=== PATIENT | female | born 1955 | race Caucasian/White ===

== ENCOUNTER 2018-11-30 14:36 | Inpatient (IN) | payer OTHER ==
[2018-11-30] MEDS ORDERED: IPRATROPIUM-ALBUTEROL 3 ML NEB INHALATION STA (15:13)
[2018-11-30] MEDS ORDERED: methylPREDNISolone SOD SUCCI 125 MG/2 ML VIAL IV STA (15:13)
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
[2018-11-30 16:01] LABS: Basophils % (A) 0 %; Eosinophils # (A) 0.1 k/uL (0-0.7); Eosinophils % (A) 1 %; HCT 40.7 % (34.0-46.0); HGB 13.5 gm/dL (11.4-16.0); Lymphocytes # (A) 0.6 k/uL (1.0-4.8); Lymphocytes % (A) 5 %; MCH 25.8 pg (25.0-35.0); MCHC 33.2 g/dL (31.0-37.0); MCV 77.5 fL (80.0-100.0); Mean Platelet Volume 6.8; Microcytosis Slight; Monocytes # (A) 0.3 k/uL (0-1.0); Monocytes % (A) 2 %; Neutrophils % (A) 92 %; Platelet Count 277 k/uL (150-450); RBC 5.25 m/uL (3.80-5.40); RDW 14.7 % (11.5-15.5); WBC 13.1 k/uL (3.8-10.6)
--- NOTE | 2018-11-30 16:13 | XR ---
EXAMINATION TYPE: XR chest 2V DATE OF EXAM: 11/30/2018 COMPARISON: NONE HISTORY: COPD with shortness of breath. TECHNIQUE: Frontal and lateral views of the chest are obtained. FINDINGS: There is no focal air space opacity, pleural effusion, or pneumothorax seen. The cardiac silhouette size is enlarged. Overlying EKG leads are seen. The osseous structures are intact. IMPRESSION: Cardiomegaly without acute pulmonary process.
[2018-11-30 16:14] LABS: ALT 74 U/L (9-52); AST 39 U/L (14-36); African American GFR (CKD) >90 (>60 ml/min/1.73 sqM); Albumin 4.3 g/dL (3.5-5.0); Alkaline Phosphatase 144 U/L (38-126); Anion Gap 13 mmol/L; Blood Urea Nitrogen 12 mg/dL (7-17); Calcium 10.3 mg/dL (8.4-10.2); Carbon Dioxide 23 mmol/L (22-30); Chloride 100 mmol/L (98-107); Glucose 241 mg/dL (74-99); Sodium 136 mmol/L (137-145); Total Bilirubin 0.7 mg/dL (0.2-1.3); Total Protein 7.4 g/dL (6.3-8.2)
[2018-11-30 16:15] LABS: D-Dimer 0.39 mg/L FEU (<0.60); INR 0.9 (<1.2); Partial Thromboplastin Time 23.1 sec (22.0-30.0); Prothrombin Time 10.2 sec (9.0-12.0)
[2018-11-30] MEDS ORDERED: IPRATROPIUM-ALBUTEROL 3 ML NEB INHALATION PRN (17:33)
[2018-11-30] MEDS: methylPREDNISolone SOD SUCCI 125 MG/2 ML VIAL IV SCH ×2 (19:04→23:22)
[2018-11-30] MEDS: NYSTATIN 100,000 UNIT/ML SUSP 500,000 UNIT/5 ML CUP PO SCH ×2 (19:06→23:21)
[2018-11-30 19:13] VITALS: BMI 46.5
[2018-11-30] MEDS: FLUTICASONE 44 MCG INHALER INHALATION SCH (19:57)
[2018-11-30] MEDS: IPRATROPIUM-ALBUTEROL 3 ML NEB INHALATION SCH (19:57)
[2018-11-30] MEDS: GABAPENTIN 300 MG CAP PO SCH (20:14)
[2018-12-01] MEDS: methylPREDNISolone SOD SUCCI 125 MG/2 ML VIAL IV SCH ×3 (05:15→23:37)
[2018-12-01] MEDS: IPRATROPIUM-ALBUTEROL 3 ML NEB INHALATION SCH ×4 (07:12→21:24)
[2018-12-01] MEDS: MONTELUKAST 10 MG TAB PO SCH (08:44)
[2018-12-01] MEDS: LORATADINE 10 MG TAB PO SCH (08:44)
[2018-12-01] MEDS: LISINOPRIL-HCTZ 10-12.5 MG 1 EACH TAB PO SCH (08:44)
[2018-12-01] MEDS: ATORVASTATIN 10 MG TAB PO SCH (08:44)
[2018-12-01] MEDS: NYSTATIN 100,000 UNIT/ML SUSP 500,000 UNIT/5 ML CUP PO SCH ×4 (08:44→22:03)
[2018-12-01] MEDS: ACETAMINOPHEN TAB 325 MG TAB PO PRN ×2 (09:25→17:05)
[2018-12-01] MEDS: FLUTICASONE 44 MCG INHALER INHALATION SCH (09:47)
[2018-12-01 11:26] LABS: Glucose,Whole Blood 296 mg/dL (75-99)
[2018-12-01] MEDS ORDERED: INSULIN ASPART (NovoLOG) 100 UNIT/ML VIAL SQ ONE (11:31)
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
[2018-12-01] MEDS: INSULIN DETEMIR (LEVEMIR) 100 UNIT/ML SYR SQ SCH (12:55)
[2018-12-01] MEDS: INSULIN ASPART (NovoLOG) 100 UNIT/ML VIAL SQ SCH ×3 (12:56→22:01)
[2018-12-01] MEDS: PREDNISOLONE ACETATE RIGHT EYE SCH ×3 (13:57→21:59)
[2018-12-01] MEDS: DICLOFENAC 0.1% RIGHT EYE SCH ×3 (13:57→22:04)
[2018-12-01 15:57] LABS: Hemoglobin A1C 7.6 % (4.0-6.0)
[2018-12-01] MEDS ORDERED: methylPREDNISolone SOD SUCCI 40 MG/ML 1 ML VIAL IV SCH (16:00)
[2018-12-01 16:50] LABS: Glucose,Whole Blood 164 mg/dL (75-99)
[2018-12-01 20:33] LABS: Glucose,Whole Blood 252 mg/dL (75-99)
[2018-12-01] MEDS: FORMOTEROL FUMARATE 20 MCG/2 ML NEBU INHALATION SCH (21:24)
[2018-12-01] MEDS: BUDESONIDE 1 MG/2 ML NEBU INHALATION SCH (21:24)
--- NOTE | 2018-12-01 21:35 | CONS ---
CONSULTATION This is a pulmonary/critical care consultation. DATE OF SERVICE: December 01, 2018 HISTORY OF PRESENT ILLNESS: This is a 63-year-old female who came into the emergency room on November 30 at 14:36 complaining of shortness of breath. The patient also had a cough. She had not been feeling well for a couple weeks. She sees Dr. Brown as her primary doctor and did see a lung doctor many years back, and was told that she had COPD. She has not seen a lung doctor recently. She apparently recently went into the [place] emergency room where she was evaluated. She apparently was given steroids and antibiotics and a rescue inhaler. Despite all that, she did not get any better. She complains of chest congestion, tightness, wheezing, cough, mostly nonproductive and profound shortness of breath. The shortness of breath got worse and worse. For that reason, she came into the ER to be evaluated. She seemed relatively comfortable at this time. She does feel better. Certainly not back to baseline. Again, she has never seen a lung doctor recently and saw somebody in the distant past and was told that she had "COPD." HOME MEDICATIONS: Includes an updraft machine with albuterol, ProAir HFA inhaler, Lipitor, QVAR, vitamin D, gabapentin, lisinopril/hydrochlorothiazide, Claritin, Singulair, and prednisone with a taper. ALLERGIES: CODEINE. MEDICAL HISTORY: COPD, hyperlipidemia, hypertension, pneumonia, recurrent episodes of acute bronchitis. SURGICAL HISTORY: Includes and eye surgery. SOCIAL HISTORY: Positive for about 20-25 years of tobacco use at 1-1/2 packs a day. She quit a number years back. She drinks occasionally. No illicit drug use. FAMILY HISTORY: Negative. She states mother and father are both alive. Both are in good health. REVIEW OF SYSTEMS: CONSTITUTIONAL: Negative. HEENT negative. CARDIOVASCULAR negative. PULMONARY: Shortness of breath, chest tightness, wheezing, cough, chest congestion, phlegm production. GI negative. negative. RHEUMATOLOGIC negative. IMMUNOLOGIC negative. ENDOCRINOLOGIC negative. DERMATOLOGIC negative. PHYSICAL EXAMINATION: VITAL SIGNS: Current vital signs are reviewed. Temperature is 98, heart rate 80. Respiratory rate 16, blood pressure 150/87, mean 108, room air saturation 95%. GENERAL: She appears in no acute distress. HEENT examination is grossly unremarkable. Mucous membranes are moist. No oral lesions. No nasal O2. NECK: Supple. Full range of motion. No adenopathy, thyromegaly or neck vein distention. CARDIOVASCULAR examination reveals regular rhythm and rate. S1, S2 normal. No S3, S4, or murmur. Heart rate 80. LUNGS: Reveal inspiratory and expiratory wheezes and rhonchi. There is prolongation on forced maneuver. Adventitious lung sounds are more prominent on forced maneuver. ABDOMEN: Obese. Bowel sounds are heard. EXTREMITIES are intact. No cyanosis, clubbing, or edema. SKIN: Without rash. NEUROLOGIC: Examination is nonfocal. LABS: Reviewed. White count 13.1, hemoglobin 13.5, hematocrit 40.7, platelet count 277,000. PT/INR, PTT all normal. D-dimer normal. Sodium 136, potassium 4, chloride 100, CO2 is 23, anion gap is 13. BUN and creatinine were 12 and 0.63. AST 39, ALT 74, alkaline phosphatase 144. N-terminal proBNP is normal. CHEST X-RAY: Shows nothing acute. Medications are reviewed. We will make sure she is on appropriate medications including short-acting beta agonist, short-acting muscarinic antagonist, long-acting beta agonist, inhaled corticosteroids, and systemic corticosteroids and oral antibiotics. ASSESSMENT: 1. Chronic obstructive pulmonary disease exacerbation. 2. Previous history of tobacco use. 3. No evidence of pneumonia. 4. History of cardiomegaly. 5. Hypertension. 6. Hyperlipidemia. 7. Prior episode of pneumonia. 8. Recurrent episodes of acute bronchitis. PLAN: I told the patient that we would make sure that she is on appropriate medications. In addition, most importantly, she needs to see us in the office after discharge for pulmonary function testing so that we can actually quantitate her disease and actually determine what disease she actually has. Additional recommendations and suggestions are forthcoming. Prognosis is guarded. We will continue to follow. MMODL / IJN: [id number] /
[2018-12-01] MEDS: DOXYCYCLINE 100 MG CAP PO SCH (22:00)
[2018-12-01] MEDS: GABAPENTIN 300 MG CAP PO SCH (22:00)
[2018-12-01] MEDS: BRIMONIDINE TARTRATE RIGHT EYE SCH (22:09)
[2018-12-01] MEDS: TIMOLOL RIGHT EYE SCH (22:09)
[2018-12-02] MEDS: methylPREDNISolone SOD SUCCI 125 MG/2 ML VIAL IV SCH ×4 (06:13→23:48)
[2018-12-02 07:07] LABS: Glucose,Whole Blood 252 mg/dL (75-99)
[2018-12-02] MEDS: IPRATROPIUM-ALBUTEROL 3 ML NEB INHALATION SCH ×4 (07:23→21:58)
[2018-12-02] MEDS: BUDESONIDE 1 MG/2 ML NEBU INHALATION SCH ×2 (07:23→21:57)
[2018-12-02] MEDS: FORMOTEROL FUMARATE 20 MCG/2 ML NEBU INHALATION SCH ×2 (07:23→21:57)
[2018-12-02] MEDS: PANTOPRAZOLE 40 MG TABLET PO SCH (07:41)
[2018-12-02] MEDS: NYSTATIN 100,000 UNIT/ML SUSP 500,000 UNIT/5 ML CUP PO SCH ×4 (07:41→22:29)
[2018-12-02] MEDS: LISINOPRIL-HCTZ 10-12.5 MG 1 EACH TAB PO SCH (07:41)
[2018-12-02] MEDS: LORATADINE 10 MG TAB PO SCH (07:42)
[2018-12-02] MEDS: DICLOFENAC 0.1% RIGHT EYE SCH ×4 (07:42→22:29)
[2018-12-02] MEDS: ENOXAPARIN 40 MG/0.4 ML SYRINGE SQ SCH (07:42)
[2018-12-02] MEDS: BRIMONIDINE TARTRATE RIGHT EYE SCH ×2 (07:42→22:29)
[2018-12-02] MEDS: INSULIN DETEMIR (LEVEMIR) 100 UNIT/ML SYR SQ SCH (07:42)
[2018-12-02] MEDS: TIMOLOL RIGHT EYE SCH ×2 (07:42→22:29)
[2018-12-02] MEDS: ATORVASTATIN 10 MG TAB PO SCH (07:42)
[2018-12-02] MEDS: MONTELUKAST 10 MG TAB PO SCH (07:42)
[2018-12-02] MEDS: PREDNISOLONE ACETATE RIGHT EYE SCH ×4 (07:42→22:29)
[2018-12-02] MEDS: INSULIN ASPART (NovoLOG) 100 UNIT/ML VIAL SQ SCH ×4 (07:42→22:30)
[2018-12-02] MEDS: DOXYCYCLINE 100 MG CAP PO SCH ×2 (07:42→22:29)
[2018-12-02 08:26] LABS: ALT 65 U/L (9-52); AST 33 U/L (14-36); African American GFR (CKD) >90 (>60 ml/min/1.73 sqM); Albumin 4.2 g/dL (3.5-5.0); Alkaline Phosphatase 116 U/L (38-126); Anion Gap 13 mmol/L; Blood Urea Nitrogen 20 mg/dL (7-17); Calcium 10.6 mg/dL (8.4-10.2); Carbon Dioxide 23 mmol/L (22-30); Chloride 99 mmol/L (98-107); Glucose 231 mg/dL (74-99); Potassium 4.3 mmol/L (3.5-5.1); Sodium 135 mmol/L (137-145); Total Bilirubin 0.7 mg/dL (0.2-1.3); Total Protein 7.1 g/dL (6.3-8.2)
[2018-12-02 08:46] LABS: HCT 40.8 % (34.0-46.0); HGB 13.8 gm/dL (11.4-16.0); MCH 26.7 pg (25.0-35.0); MCHC 33.9 g/dL (31.0-37.0); Platelet Count 291 k/uL (150-450); RBC 5.17 m/uL (3.80-5.40); RDW 14.8 % (11.5-15.5); WBC 15.4 k/uL (3.8-10.6)
[2018-12-02 11:54] LABS: Glucose,Whole Blood 220 mg/dL (75-99)
[2018-12-02] MEDS: SENNOSIDES-DOCUSATE SODIUM 1 EACH TAB PO SCH (12:28)
--- NOTE | 2018-12-02 14:08 | P.PN ---
Subjective Progress Note Date: 12/02/18 This is a 63-year-old female patient of Dr. Brown with past medical history of COPD, fibromyalgia under the care of Dr. Morgan, hyperlipidemia, hypertension, glaucoma and recent cataract surgery. 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 She does not currently have a pulmonary doctor. Patient has had increasing cough and shortness of breath for the last couple of weeks. She has been seen by her primary care doctor and emergency center at [facility]. She was started on DuoNeb treatments. She has completed a course of doxycycline. She is currently on prednisone as well. She complains of difficulty breathing out, dry cough. No fever or chills. She has been using her nebulizer 4 times daily without improvement. She denies history of obstructive sleep apnea but her reports that she snores, she has not had a sleep study done in the past. She is complaining of abdominal bloating since she started prednisone. Patient came into [facility] emergency center for evaluation. She was afebrile, heart rate 86, pulse ox 96% on room air, blood pressure 152/88. EKG was a sinus rhythm with no acute ST changes. White count 13.1, hemoglobin 13.5, platelet count 277. Blood sugar 241 without history of diabetes. BUN 12 and creatinine 0.63. D-dimer 0.39. Alkaline phosphatase 144, ALT 74, AST 39. ProBNP 39. Chest x-ray reveals no acute cardiopulmonary process. Patient was started on IV Solu-Medrol and DuoNeb treatments and admitted to the [facility] floor. Consult with Dr. Berger in place. At the time of this evaluation, patient has had improvement of her respiratory function, she continues to have cough. 12/02: Patient has been seen by Dr. Bryant with plan for follow-up in the office. He has increased her Solu-Medrol back to 60 every 6 hours and added in doxycycline. She has been afebrile. Blood pressure 113/74, pulse ox 97% on room air, heart rate in the 60s. Blood sugars have been running in the low 200s. Repeat lab work this morning reveals sodium of 135, AST 33, ALT 65, alkaline phosphatase 116. Blood culture no growth after 24 hours. Patient states that she is very emotional this morning. states there have been some issues going on and this may be impacted also by the Solu-Medrol. Patient states this morning she was feeling tight and still wheezing. No changes will be made to her medications She is complaining of constipation as her last bowel movement was on Saturday and Senokot added. Objective - Vital Signs Vital signs: Vital Signs Temp 97.9 F 12/02/18 05:00 Pulse 74 12/02/18 07:47 Resp 18 12/02/18 07:36 BP 113/74 12/02/18 05:00 Pulse Ox 98 12/02/18 07:23 Intake & Output 12/01/18 12/02/18 12/02/18 18:59 06:59 18:59 Intake Total 840 Balance 840 Intake: Oral 840 Other: Voiding Method Toilet Toilet # Voids 2 - Exam Review of Systems Constitutional: Reports fatigue, Reports malaise, Reports poor appetite, Reports weakness, Denies anorexia, Denies chills, Denies fever, Denies lethargy Eyes: denies blurred vision, denies pain Ears, nose, mouth and throat: Denies dysphagia, Denies headache, Denies mouth pain, Denies nasal congestion, Denies nasal discharge, Denies sore throat, Denies vertigo Cardiovascular: Reports dyspnea on exertion, Reports shortness of breath, Denies chest pain, Denies edema, Denies leg edema, Denies lightheadedness, Denies orthopnea, Denies palpitations, Denies syncope Respiratory: Reports congestion, Reports cough, Reports dyspnea, Reports wheezing, Denies cough with sputum, Denies excessive sputum, Denies hemoptysis, Denies home oxygen, Denies sleep apnea Gastrointestinal: Denies abdominal pain, Denies loss of appetite, Denies nausea, Denies vomiting Genitourinary: Denies dysuria, Denies hematuria, Denies urgency, Denies urinary frequency Musculoskeletal: Denies frequent falls, Denies gait dysfunction, Denies muscle weakness, Denies myalgias Integumentary: Denies pruritus, Denies rash, Denies wounds Neurological: Denies change in mentation, Denies change in speech, Denies confusion, Denies head injury, Denies numbness, Denies seizures, Denies weakness Psychiatric: Reports anxiety, Denies depression Endocrine: Reports fatigue, Reports high blood sugars, Denies weight change Gen: This is a 63-year-old female. Patient is sitting up in bed and noted to be tearful. is at bedside.. HEENT: Head is atraumatic, normocephalic. Pupils equal, round. Sclerae is anicteric. NECK: Supple. No JVD. No lymphadenopathy. No thyromegaly. LUNGS: Expiratory wheeze. No accessory muscle usage. No intercostal retractions. HEART: Regular rate and rhythm. No murmur. ABDOMEN: Soft. Bowel sounds are present. No masses. No tenderness. EXTREMITIES: No pedal edema. No calf tenderness. Dorsalis pedis +2 bilaterally. NEUROLOGICAL: Patient is awake, alert and oriented x3. Cranial nerves 2 through 12 are grossly intact. - Labs CBC & Chem 7: 12/02/18 07:34 12/02/18 07:34 Labs: Abnormal Lab Results - Last 24 Hours (Table) 11/30/18 12/01/18 12/01/18 Range/Units 15:44 11:25 16:47 Sodium (137-145) mmol/L BUN (7-17) mg/dL Glucose (74-99) mg/dL POC Glucose (mg/dL) 296 H 164 H (75-99) mg/dL Hemoglobin A1c 7.6 H (4.0-6.0) % Calcium (8.4-10.2) mg/dL ALT (9-52) U/L 12/01/18 12/02/18 12/02/18 Range/Units 20:32 07:06 07:34 Sodium 135 L (137-145) mmol/L BUN 20 H (7-17) mg/dL Glucose 231 H (74-99) mg/dL POC Glucose (mg/dL) 252 H 252 H (75-99) mg/dL Hemoglobin A1c (4.0-6.0) % Calcium 10.6 H (8.4-10.2) mg/dL ALT 65 H (9-52) U/L Microbiology - Last 24 Hours (Table) 11/30/18 15:44 Blood Culture - Preliminary Blood No Growth after 24 hours Assessment and Plan Plan: 1. Acute exacerbation of COPD, failed outpatient treatment. Pulmonary consult appreciated. DuoNeb treatments 4 times daily and every 4 hours as needed, Pulmicort 1 mg per nebulizer twice daily, Solu-Medrol was increased to 60 mg every 6 hours, doxycycline added by pulmonary medicine, continue Singulair and Claritin. 2. Hyperglycemia most likely secondary to steroids with no previous history of diabetes. Hemoglobin A1c ordered. Levemir 10 units daily and NovoLog scale before meals and at bedtime. 3. Remote history of tobacco use and dependence. 4. Elevated liver function tests, recheck CMP tomorrow. 5. Fibromyalgia under the care of Dr. Morgan. Continue gabapentin 300 mg at bedtime 6. Hypertension. Continue lisinopril/hydrochlorothiazide 10/12.5 mg daily. 7. Hyperlipidemia. Continue atorvastatin 10 mg daily. 8. Glaucoma and recent right cataract surgery. will bring eyedrops from home. 9. Possible obstructive sleep apnea, patient would benefit from outpatient testing. 10. DVT prophylaxis. Lovenox. 11. GI prophylaxis. Protonix. 12. Oral thrush. Nystatin. Patient will be admitted to the hospital for a minimum of 2 night stay. Discharge plan: Return home Impression and plan of care have been directed as dictated by the signing physician. Gwendolyn Hernandez nurse practitioner acting as scribe for signing physi sharri.
--- NOTE | 2018-12-02 14:15 | P.PN ---
Subjective Progress Note Date: 12/02/18 Principal diagnosis: Acute exacerbation of chronic obstructive pulmonary disease On 12/02/2018 patient seen in follow-up on medical surgical floor. She still tight and wheezy, although slightly improved today. She is a combination of empiric antibiotics, IV steroids, and nebulized bronchodilators. Occasional nonproductive cough, today she is just feeling "washed out", but no acute distress. Objective - Vital Signs Vital signs: Vital Signs Temp 97.6 F 12/02/18 11:42 Pulse 70 12/02/18 13:33 Resp 16 12/02/18 11:42 BP 156/77 12/02/18 11:42 Pulse Ox 93 L 12/02/18 11:42 Intake & Output 12/01/18 12/02/18 12/02/18 18:59 06:59 18:59 Intake Total 840 20 Balance 840 20 Intake: IV 20 0.9 flush 20 Oral 840 Other: Voiding Method Toilet Toilet # Voids 2 - Exam GENERAL EXAM: Alert, pleasant, 63-year-old white female with room air pulse ox of 93% comfortable in no apparent distress. HEAD: Normocephalic/atraumatic. EYES: Normal reaction of pupils, equal size. Conjunctiva pink, sclera white. NOSE: Clear with pink turbinates. THROAT: No erythema or exudates. NECK: No masses, no JVD, no thyroid enlargement, no adenopathy. CHEST: No chest wall deformity. Symmetrical expansion. LUNGS: Equal air entry with diminished air entry, and end expiratory wheezes, prolongation of expiratory phase of breathing CVS: Regular rate and rhythm, normal S1 and S2, no gallops, no murmurs, no rubs ABDOMEN: Soft, nontender. No hepatosplenomegaly, normal bowel sounds, no guarding or rigidity. EXTREMITIES: No clubbing, no edema, no cyanosis, 2+ pulses and upper and lower extremities. MUSCULOSKELETAL: Muscle strength and tone normal. SPINE: No scoliosis or deformity SKIN: No rashes CENTRAL NERVOUS SYSTEM: Alert and oriented -3. No focal deficits, tone is normal in all 4 extremities. PSYCHIATRIC: Alert and oriented -3. Appropriate affect. Intact judgment and insight. - Labs CBC & Chem 7: 12/02/18 07:34 12/02/18 07:34 Labs: Abnormal Lab Results - Last 24 Hours (Table) 11/30/18 12/01/18 12/01/18 Range/Units 15:44 16:47 20:32 WBC (3.8-10.6) k/uL MCV (80.0-100.0) fL Sodium (137-145) mmol/L BUN (7-17) mg/dL Glucose (74-99) mg/dL POC Glucose (mg/dL) 164 H 252 H (75-99) mg/dL Hemoglobin A1c 7.6 H (4.0-6.0) % Calcium (8.4-10.2) mg/dL ALT (9-52) U/L 12/02/18 12/02/18 12/02/18 Range/Units 07:06 07:34 07:34 WBC 15.4 H (3.8-10.6) k/uL MCV 79.0 L (80.0-100.0) fL Sodium 135 L (137-145) mmol/L BUN 20 H (7-17) mg/dL Glucose 231 H (74-99) mg/dL POC Glucose (mg/dL) 252 H (75-99) mg/dL Hemoglobin A1c (4.0-6.0) % Calcium 10.6 H (8.4-10.2) mg/dL ALT 65 H (9-52) U/L 12/02/18 Range/Units 11:51 WBC (3.8-10.6) k/uL MCV (80.0-100.0) fL Sodium (137-145) mmol/L BUN (7-17) mg/dL Glucose (74-99) mg/dL POC Glucose (mg/dL) 220 H (75-99) mg/dL Hemoglobin A1c (4.0-6.0) % Calcium (8.4-10.2) mg/dL ALT (9-52) U/L Microbiology - Last 24 Hours (Table) 11/30/18 15:44 Blood Culture - Preliminary Blood No Growth after 24 hours Assessment and Plan Plan: Assessment: #1. Acute exacerbation of chronic obstructive pulmonary disease, no evidence of pneumonia #2. 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 History of cardiomegaly #4. Hypertension #5. Hyperlipidemia #6. Prior episodes of pneumonia #7. Recurrent episodes of acute bronchitis Plan: Continue current medical treatment, current dose IV steroids and antibiotics and nebulized bronchodilators. Slowly improving, not quite back to baseline, continue with current medical treatment, will follow I performed a history & physical examination of the patient and discussed their management with my nurse practitioner, Bekah Orta. I reviewed the nurse practitioner's note and agree with the documented findings and plan of care. Lung sounds are positive for scattered wheezes. The findings and the impression was discussed with the patient. I attest to the documentation by the nurse practitioner. Time with Patient: Less than 30
[2018-12-02] MEDS: ACETAMINOPHEN TAB 325 MG TAB PO PRN (17:02)
[2018-12-02 17:13] LABS: Glucose,Whole Blood 263 mg/dL (75-99)
--- NOTE | 2018-12-02 17:23 | ECHOF ---
Referral Reason:LVF MEASUREMENTS -------- HEIGHT: 157.5 cm WEIGHT: 113.4 kg BP: RVIDd: 2.7 cm (< 3.3) IVSd: 1.1 cm (0.6 - 1.1) LVIDd: 4.0 cm (3.9 - 5.3) LVPWd: 1.2 cm (0.6 - 1.1) IVSs: 1.6 cm LVIDs: 2.8 cm LVPWs: 1.5 cm Ao Diam: 2.4 cm (2.0 - 3.7) AV Cusp: 1.8 cm (1.5 - 2.6) LA Diam: 3.3 cm (2.7 - 3.8) EPSS: 0.4 cm MV E Mark: 0.78 m/s MV DecT: 201 ms MV A Mark: 0.88 m/s MV E/A Ratio: 0.89 RAP: 5.00 mmHg RVSP: 13.56 mmHg MV EF SLOPE: 67.69 mm/s (70 - 150) MV EXCURSION: 1.30 cm (> 18.000) FINDINGS -------- Sinus rhythm. This was a technically difficult study with suboptimal views. The left ventricular size is normal. There is mild concentric left ventricular hypertrophy. Overa ll left ventricular systolic function is normal with, an EF between 55 - 60 %. The diastolic fillin g pattern is normal for the age of the patient. The right ventricle is normal in size. The left atrial size is normal. The right atrial size is normal. Lumason used 1.5mg of Definity was utilized for enhancement of images The aortic valve is trileaflet, and appears structurally normal. No aortic stenosis or regurgitation. The mitral valve is normal. Mild mitral regurgitation is present. The tricuspid valve appears structurally normal. Mild tricuspid regurgitation present. Right vent ricular systolic pressure is normal at < 35 mmHg. Trace/mild (physiologic) pulmonic regurgitation. The aortic root size is normal. The inferior vena cava was not well visualized. The pulmonary veins were not recorded. Echo free space may represent effusion or a pericardial fat pad. CONCLUSIONS -------- 1. Sinus rhythm. 2. This was a technically difficult study with suboptimal views. 3. The left ventricular size is normal. 4. There is mild concentric left ventricular hypertrophy. 5. Overall left ventricular systolic function is normal with, an EF between 55 - 60 %. 6. The diastolic filling pattern is normal for the age of the patient. 7. The left atrial size is normal. 8. Lumason used 9. 1.5mg of Definity was utilized for enhancement of images 10. The aortic valve is trileaflet, and appears structurally normal. No aortic stenosis or regurgitat ion. 11. The mitral valve is normal. 12. Mild mitral regurgitation is present. 13. The tricuspid valve appears structurally normal. 14. Mild tricuspid regurgitation present. 15. Right ventricular systolic pressure is normal at < 35 mmHg. 16. Trace/mild (physiologic) pulmonic regurgitation. 17. The aortic root size is normal. 18. The inferior vena cava was not well visualized. 19. The pulmonary veins were not recorded. 20. Echo free space may represent effusion or a pericardial fat pad. SCHOOL LEADER: Shy Waller RDCS
[2018-12-02 20:08] LABS: Glucose,Whole Blood 257 mg/dL (75-99)
[2018-12-02] MEDS: GABAPENTIN 300 MG CAP PO SCH (22:36)
[2018-12-03] MEDS: ACETAMINOPHEN TAB 325 MG TAB PO PRN (04:26)
[2018-12-03] MEDS: methylPREDNISolone SOD SUCCI 125 MG/2 ML VIAL IV SCH ×2 (05:36→12:50)
[2018-12-03] MEDS: IPRATROPIUM-ALBUTEROL 3 ML NEB INHALATION SCH ×4 (07:02→19:08)
[2018-12-03] MEDS: FORMOTEROL FUMARATE 20 MCG/2 ML NEBU INHALATION SCH ×2 (07:02→19:08)
[2018-12-03] MEDS: BUDESONIDE 1 MG/2 ML NEBU INHALATION SCH ×2 (07:03→19:08)
[2018-12-03 07:04] LABS: Glucose,Whole Blood 238 mg/dL (75-99)
[2018-12-03] MEDS: INSULIN ASPART (NovoLOG) 100 UNIT/ML VIAL SQ SCH ×4 (08:09→21:31)
[2018-12-03] MEDS: ENOXAPARIN 40 MG/0.4 ML SYRINGE SQ SCH (08:09)
[2018-12-03] MEDS: ATORVASTATIN 10 MG TAB PO SCH (08:10)
[2018-12-03] MEDS: SENNOSIDES-DOCUSATE SODIUM 1 EACH TAB PO SCH (08:10)
[2018-12-03] MEDS: PREDNISOLONE ACETATE RIGHT EYE SCH ×4 (08:11→21:30)
[2018-12-03] MEDS: NYSTATIN 100,000 UNIT/ML SUSP 500,000 UNIT/5 ML CUP PO SCH ×4 (08:11→21:32)
[2018-12-03] MEDS: DICLOFENAC 0.1% RIGHT EYE SCH ×4 (08:11→21:33)
[2018-12-03] MEDS: TIMOLOL RIGHT EYE SCH ×2 (08:11→21:35)
[2018-12-03] MEDS: BRIMONIDINE TARTRATE RIGHT EYE SCH ×2 (08:11→21:35)
[2018-12-03] MEDS: LORATADINE 10 MG TAB PO SCH (08:12)
[2018-12-03] MEDS: LISINOPRIL-HCTZ 10-12.5 MG 1 EACH TAB PO SCH (08:12)
[2018-12-03] MEDS: MONTELUKAST 10 MG TAB PO SCH (08:12)
[2018-12-03] MEDS: DOXYCYCLINE 100 MG CAP PO SCH ×2 (08:12→21:31)
[2018-12-03] MEDS: PANTOPRAZOLE 40 MG TABLET PO SCH (08:12)
[2018-12-03] MEDS: INSULIN DETEMIR (LEVEMIR) 100 UNIT/ML SYR SQ SCH (08:21)
[2018-12-03] MEDS ORDERED: ERGOCALCIFEROL 50,000 UNIT CAP PO SCH (09:00)
[2018-12-03 11:37] LABS: Glucose,Whole Blood 260 mg/dL (75-99)
[2018-12-03] MEDS: metFORMIN 500 MG TAB PO SCH ×2 (12:43→17:31)
--- NOTE | 2018-12-03 13:25 | P.PN ---
Subjective Progress Note Date: 12/03/18 Principal diagnosis: Acute exacerbation of chronic obstructive pulmonary disease. The patient is seen today 12/03/2018 in follow-up on the regular medical floor. She is currently resting comfortably in bed. Awake and alert in no acute distress. She is improved today as compared to yesterday but still not quite back to her baseline. Still dyspneic on minimal exertion. Still some expiratory wheezing. Blood culture reveals no growth. She remains on empiric antibiotics in the form of Vibramycin, DuoNeb inhalations, Pulmicort and Perforomist inhalations, IV Solu-Medrol. Objective - Vital Signs Vital signs: Vital Signs Temp 97.8 F 12/03/18 12:21 Pulse 75 12/03/18 12:21 Resp 16 12/03/18 12:21 BP 170/80 12/03/18 12:21 Pulse Ox 96 12/03/18 12:21 Intake & Output 12/02/18 12/03/18 12/03/18 18:59 06:59 18:59 Intake Total 20 1200 Balance 20 1200 Intake: IV 20 0.9 flush 20 Oral 1200 Other: Voiding Method Toilet Toilet # Voids 1 - Exam GENERAL EXAM: Alert, pleasant, 63-year-old female patient with room air pulse ox of 96% comfortable in no apparent distress. HEAD: Normocephalic/atraumatic. EYES: Normal reaction of pupils, equal size. Conjunctiva pink, sclera white. NOSE: Clear with pink turbinates. THROAT: No erythema or exudates. NECK: No masses, no JVD, no thyroid enlargement, no adenopathy. CHEST: No chest wall deformity. Symmetrical expansion. LUNGS: Equal air entry with diminished air entry, and end expiratory wheezes, prolongation of expiratory phase of breathing CVS: Regular rate and rhythm, normal S1 and S2, no gallops, no murmurs, no rubs ABDOMEN: Soft, nontender. No hepatosplenomegaly, normal bowel sounds, no guarding or rigidity. EXTREMITIES: No clubbing, no edema, no cyanosis, 2+ pulses and upper and lower extremities. MUSCULOSKELETAL: Muscle strength and tone normal. SPINE: No scoliosis or deformity SKIN: No rashes CENTRAL NERVOUS SYSTEM: No focal deficits, tone is normal in all 4 extremities. PSYCHIATRIC: Alert and oriented -3. Appropriate affect. Intact judgment and insight. - Labs CBC & Chem 7: 12/02/18 07:34 12/02/18 07:34 Labs: Abnormal Lab Results - Last 24 Hours (Table) 12/02/18 12/02/18 12/03/18 Range/Units 17:11 20:06 07:03 POC Glucose (mg/dL) 263 H 257 H 238 H (75-99) mg/dL 12/03/18 Range/Units 11:36 POC Glucose (mg/dL) 260 H (75-99) mg/dL Microbiology - Last 24 Hours (Table) 11/30/18 15:44 Blood Culture - Preliminary Blood No Growth after 48 hours Assessment and Plan Assessment: Assessment: #1. Acute exacerbation of chronic obstructive pulmonary disease, no evidence of pneumonia #2. 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 History of cardiomegaly #4. Hypertension #5. Hyperlipidemia #6. Prior episodes of pneumonia #7. Recurrent episodes of acute bronchitis Plan: The patient was seen and evaluated by Dr. Bryant. She is improved today compared to yesterday. Not quite back to her baseline. We'll continue with the current treatment plan. Plan for probable discharge in the a.m. I, the cosigning physician, performed a history & physical examination of the patient. Lungs sounds with bilateral end expiratory wheeze. Maintaining good O2 saturations in the 90s on room air. I discussed the assessment and plan of care with my nurse practitioner, Edna Spears. I attest to the above note as dictated by her.
--- NOTE | 2018-12-03 14:23 | P.PN ---
Subjective Progress Note Date: 12/03/18 This is a 63-year-old female patient of Dr. Brown with past medical history of COPD, fibromyalgia under the care of Dr. Morgan, hyperlipidemia, hypertension, glaucoma and recent cataract surgery. 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 She does not currently have a pulmonary doctor. Patient has had increasing cough and shortness of breath for the last couple of weeks. She has been seen by her primary care doctor and emergency center at [facility]. She was started on DuoNeb treatments. She has completed a course of doxycycline. She is currently on prednisone as well. She complains of difficulty breathing out, dry cough. No fever or chills. She has been using her nebulizer 4 times daily without improvement. She denies history of obstructive sleep apnea but her reports that she snores, she has not had a sleep study done in the past. She is complaining of abdominal bloating since she started prednisone. Patient came into [facility] emergency center for evaluation. She was afebrile, heart rate 86, pulse ox 96% on room air, blood pressure 152/88. EKG was a sinus rhythm with no acute ST changes. White count 13.1, hemoglobin 13.5, platelet count 277. Blood sugar 241 without history of diabetes. BUN 12 and creatinine 0.63. D-dimer 0.39. Alkaline phosphatase 144, ALT 74, AST 39. ProBNP 39. Chest x-ray reveals no acute cardiopulmonary process. Patient was started on IV Solu-Medrol and DuoNeb treatments and admitted to the [facility] floor. Consult with Dr. Berger in place. At the time of this evaluation, patient has had improvement of her respiratory function, she continues to have cough. 12/02: Patient has been seen by Dr. Bryant with plan for follow-up in the office. He has increased her Solu-Medrol back to 60 every 6 hours and added in doxycycline. She has been afebrile. Blood pressure 113/74, pulse ox 97% on room air, heart rate in the 60s. Blood sugars have been running in the low 200s. Repeat lab work this morning reveals sodium of 135, AST 33, ALT 65, alkaline phosphatase 116. Blood culture no growth after 24 hours. Patient states that she is very emotional this morning. states there have been some issues going on and this may be impacted also by the Solu-Medrol. Patient states this morning she was feeling tight and still wheezing. No changes will be made to her medications She is complaining of constipation as her last bowel movement was on Saturday and Senokot added. 12/03: Patient states that today is her best day so far. She continues to cough with sputum production. Her breathing is improved from yesterday. Ech ocardiogram reveals EF of 55-60%, mild concentric left ventricular hypertrophy, mild mitral regurgitation, mild tricuspid regurgitation. Hemoglobin A1c is 7.6 and patient will be started on metformin which will be continued per home. She has met with the nutrition educator. Patient states that she has a glucometer that was her father's which she will use to check her blood sugars at home. Solu-Medrol will be decreased to 40 mg every 8 hours. Anticipate discharge home in next 48 hours. Objective - Vital Signs Vital signs: Vital Signs Temp 96.9 F L 12/03/18 04:53 Pulse 84 12/03/18 11:36 Resp 18 12/03/18 04:53 BP 147/75 12/03/18 04:53 Pulse Ox 95 12/03/18 04:53 Intake & Output 12/02/18 12/03/18 12/03/18 18:59 06:59 18:59 Intake Total 20 1200 Balance 20 1200 Intake: IV 20 0.9 flush 20 Oral 1200 Other: Voiding Method Toilet Toilet # Voids 1 - Exam Review of Systems Constitutional: Reports fatigue, Reports malaise, Reports poor appetite, Reports weakness, Denies anorexia, Denies chills, Denies fever, Denies lethargy Eyes: denies blurred vision, denies pain Ears, nose, mouth and throat: Denies dysphagia, Denies headache, Denies mouth pain, Denies nasal congestion, Denies nasal discharge, Denies sore throat, Denies vertigo Cardiovascular: Reports dyspnea on exertion, Reports shortness of breath- improving, Denies chest pain, Denies edema, Denies leg edema, Denies lightheadedness, Denies orthopnea, Denies palpitations, Denies syncope Respiratory: Reports congestion, Reports cough, Reports dyspnea, Reports wheezing, Denies cough with sputum, Denies excessive sputum, Denies hemoptysis, Denies home oxygen, Denies sleep apnea Gastrointestinal: Denies abdominal pain, Denies loss of appetite, Denies nausea, Denies vomiting Genitourinary: Denies dysuria, Denies hematuria, Denies urgency, Denies urinary frequency Musculoskeletal: Denies frequent falls, Denies gait dysfunction, Denies muscle weakness, Denies myalgias Integumentary: Denies pruritus, Denies rash, Denies wounds Neurological: Denies change in mentation, Denies change in speech, Denies confusion, Denies head injury, Denies numbness, Denies seizures, Denies weakness Psychiatric: Reports anxiety, Denies depression Endocrine: Reports fatigue, Reports high blood sugars, Denies weight change Gen: This is a 63-year-old female. Patient is sitting up in bed and appears to be comfortable. is at bedside. HEENT: Head is atraumatic, normocephalic. Pupils equal, round. Sclerae is anicteric. NECK: Supple. No JVD. No lymphadenopathy. No thyromegaly. LUNGS: Expiratory wheeze. No accessory muscle usage. No intercostal retractions. HEART: Regular rate and rhythm. No murmur. ABDOMEN: Soft. Bowel sounds are present. No masses. No tenderness. EXTREMITIES: No pedal edema. No calf tenderness. Dorsalis pedis +2 bilaterally. NEUROLOGICAL: Patient is awake, alert and oriented x3. Cranial nerves 2 through 12 are grossly intact. - Labs CBC & Chem 7: 12/02/18 07:34 12/02/18 07:34 Labs: Abnormal Lab Results - Last 24 Hours (Table) 12/02/18 12/02/18 12/03/18 Range/Units 17:11 20:06 07:03 POC Glucose (mg/dL) 263 H 257 H 238 H (75-99) mg/dL 12/03/18 Range/Units 11:36 POC Glucose (mg/dL) 260 H (75-99) mg/dL Microbiology - Last 24 Hours (Table) 11/30/18 15:44 Blood Culture - Preliminary Blood No Growth after 48 hours Assessment and Plan Plan: 1. Acute exacerbation of COPD, failed outpatient treatment. Pulmonary consult appreciated. DuoNeb treatments 4 times daily and every 4 hours as needed, Pulmicort 1 mg per nebulizer twice daily, Solu-Medrol will be decreased to 40 mg every 8 hours, doxycycline added by pulmonary medicine, continue Singulair and Claritin. 2. Diabetes mellitus type 2, new diagnosis, uncontrolled with hyperglycemia secondary to steroids. Levemir 10 units daily and NovoLog scale before meals and at bedtime. Start metformin 500mg twice daily 3. Remote history of tobacco use and dependence. 4. Elevated liver function tests, recheck CMP tomorrow. 5. Fibromyalgia under the care of Dr. Morgan. Continue gabapentin 300 mg at bedtime 6. Hypertension. Continue lisinopril/hydrochlorothiazide 10/12.5 mg daily. 7. Hyperlipidemia. Continue atorvastatin 10 mg daily. 8. Glaucoma and recent right cataract surgery. will bring eyedrops from home. 9. Possible obstructive sleep apnea, patient would benefit from outpatient testing. 10. DVT prophylaxis. Lovenox. 11. GI prophylaxis. Protonix. 12. Oral thrush. Nystatin. Discharge plan: Return home Impression and plan of care have been directed as dictated by the signing physician. Gwendolyn Hernandez nurse practitioner acting as scribe for signing physician.
[2018-12-03 17:10] LABS: Glucose,Whole Blood 136 mg/dL (75-99)
[2018-12-03] MEDS: methylPREDNISolone SOD SUCCI 40 MG/ML 1 ML VIAL IV SCH ×2 (17:32→23:46)
[2018-12-03 20:14] LABS: Glucose,Whole Blood 193 mg/dL (75-99)
[2018-12-03] MEDS: GABAPENTIN 300 MG CAP PO SCH (21:31)
[2018-12-03 23:04] VITALS: RESP 18
[2018-12-04 06:54] LABS: Glucose,Whole Blood 190 mg/dL (75-99)
[2018-12-04] MEDS: IPRATROPIUM-ALBUTEROL 3 ML NEB INHALATION SCH ×4 (06:55→19:01)
[2018-12-04] MEDS: FORMOTEROL FUMARATE 20 MCG/2 ML NEBU INHALATION SCH ×2 (07:01→19:01)
[2018-12-04] MEDS: BUDESONIDE 1 MG/2 ML NEBU INHALATION SCH ×2 (07:02→19:01)
[2018-12-04] MEDS: ENOXAPARIN 40 MG/0.4 ML SYRINGE SQ SCH (08:19)
[2018-12-04] MEDS: INSULIN ASPART (NovoLOG) 100 UNIT/ML VIAL SQ SCH ×4 (08:19→21:41)
[2018-12-04] MEDS: DOXYCYCLINE 100 MG CAP PO SCH ×2 (08:20→21:46)
[2018-12-04] MEDS: PREDNISOLONE ACETATE RIGHT EYE SCH ×4 (08:20→21:48)
[2018-12-04] MEDS: INSULIN DETEMIR (LEVEMIR) 100 UNIT/ML SYR SQ SCH (08:20)
[2018-12-04] MEDS: DICLOFENAC 0.1% RIGHT EYE SCH ×4 (08:20→21:48)
[2018-12-04] MEDS: NYSTATIN 100,000 UNIT/ML SUSP 500,000 UNIT/5 ML CUP PO SCH ×4 (08:21→21:48)
[2018-12-04] MEDS: TIMOLOL RIGHT EYE SCH ×2 (08:21→21:47)
[2018-12-04] MEDS: BRIMONIDINE TARTRATE RIGHT EYE SCH ×2 (08:21→21:47)
[2018-12-04] MEDS: methylPREDNISolone SOD SUCCI 40 MG/ML 1 ML VIAL IV SCH ×2 (08:21→21:48)
[2018-12-04] MEDS: metFORMIN 500 MG TAB PO SCH ×2 (08:21→17:41)
[2018-12-04] MEDS: ATORVASTATIN 10 MG TAB PO SCH (08:21)
[2018-12-04] MEDS: MONTELUKAST 10 MG TAB PO SCH (08:21)
[2018-12-04] MEDS: LISINOPRIL-HCTZ 10-12.5 MG 1 EACH TAB PO SCH (08:22)
[2018-12-04] MEDS: SENNOSIDES-DOCUSATE SODIUM 1 EACH TAB PO SCH ×2 (08:22→08:24)
[2018-12-04] MEDS: LORATADINE 10 MG TAB PO SCH (08:22)
[2018-12-04] MEDS: PANTOPRAZOLE 40 MG TABLET PO SCH (08:22)
[2018-12-04] MEDS: ACETAMINOPHEN TAB 325 MG TAB PO PRN ×2 (08:30→17:47)
[2018-12-04 11:17] LABS: Glucose,Whole Blood 170 mg/dL (75-99)
--- NOTE | 2018-12-04 12:05 | P.PN ---
Subjective Progress Note Date: 12/04/18 This is a 63-year-old female patient of Dr. Brown with past medical history of COPD, fibromyalgia under the care of Dr. Morgan, hyperlipidemia, hypertension, glaucoma and recent cataract surgery. Patient followed with a secretary administrative assistant in the [facility] and was told she had moderate COPD years ago. She does not currently have a pulmonary doctor. Patient has had increasing cough and shortness of breath for the last couple of weeks. She has been seen by her primary care doctor and emergency center at [facility]. She was started on DuoNeb treatments. She has completed a course of doxycycline. She is currently on prednisone as well. She complains of difficulty breathing out, dry cough. No fever or chills. She has been using her nebulizer 4 times daily without improvement. She denies history of obstructive sleep apnea but her reports that she snores, she has not had a sleep study done in the past. She is complaining of abdominal bloating since she started prednisone. Patient came into [facility] emergency center for evaluation. She was afebrile, heart rate 86, pulse ox 96% on room air, blood pressure 152/88. EKG was a sinus rhythm with no acute ST changes. White count 13.1, hemoglobin 13.5, platelet count 277. Blood sugar 241 without history of diabetes. BUN 12 and creatinine 0.63. D-dimer 0.39. Alkaline phosphatase 144, ALT 74, AST 39. ProBNP 39. Chest x-ray reveals no acute cardiopulmonary process. Patient was started on IV Solu-Medrol and DuoNeb treatments and admitted to the [facility] floor. Consult with Dr. Berger in place. At the time of this evaluation, patient has had improvement of her respiratory function, she continues to have cough. 12/02: Patient has been seen by Dr. Bryant with plan for follow-up in the office. He has increased her Solu-Medrol back to 60 every 6 hours and added in doxycycline. She has been afebrile. Blood pressure 113/74, pulse ox 97% on room air, heart rate in the 60s. Blood sugars have been running in the low 200s. Repeat lab work this morning reveals sodium of 135, AST 33, ALT 65, alkaline phosphatase 116. Blood culture no growth after 24 hours. Patient states that she is very emotional this morning. states there have been some issues going on and this may be impacted also by the Solu-Medrol. Patient states this morning she was feeling tight and still wheezing. No changes will be made to her medications She is complaining of constipation as her last bowel movement was on Saturday and Senokot added. 12/03: Patient states that today is her best day so far. She continues to cough with sputum production. Her breathing is improved from yesterday. Ech ocardiogram reveals EF of 55-60%, mild concentric left ventricular hypertrophy, mild mitral regurgitation, mild tricuspid regurgitation. Hemoglobin A1c is 7.6 and patient will be started on metformin which will be continued per home. She has met with the life educator. Patient states that she has a glucometer that was her father's which she will use to check her blood sugars at home. Solu-Medrol will be decreased to 40 mg every 8 hours. Anticipate discharge home in next 48 hours. 12/04: Patient's breathing status continues to improve. Solu-Medrol will be changed to 40 mg every 12 hours with plan for prednisone for discharge. She has met with life educator. We will also add in Tradjenta with plan for Tradjenta and metformin at discharge. Blood sugars are running a little between 136 and 193. She remains afebrile, heart rate in the 60s and 70s, blood pressure 132/83, pulse ox 91% on room air. Anticipate discharge home tomorrow. Objective - Vital Signs Vital signs: Vital Signs Temp 97.5 F L 12/04/18 05:00 Pulse 72 12/04/18 07:19 Resp 18 12/04/18 05:00 BP 144/77 12/04/18 06:11 Pulse Ox 97 12/04/18 06:55 Intake & Output 12/03/18 12/04/18 12/04/18 18:59 06:59 18:59 Intake Total 1080 Balance 1080 Intake: Oral 1080 Other: Voiding Method Toilet # Voids 4 2 - Exam Review of Systems Constitutional: Reports fatigue, Denies anorexia, Denies chills, Denies fever, Denies lethargy Eyes: denies blurred vision, denies pain Ears, nose, mouth and throat: Denies dysphagia, Denies headache, Denies mouth pain, Denies nasal congestion, Denies nasal discharge, Denies sore throat, Denies vertigo Cardiovascular: Reports dyspnea on exertion, Reports shortness of breath- improving, Denies chest pain, Denies edema, Denies leg edema, Denies lightheadedness, Denies orthopnea, Denies palpitations, Denies syncope Respiratory: Reports congestion, Reports cough, Reports dyspnea-improving, Reports wheezing, Denies cough with sputum, Denies excessive sputum, Denies hemoptysis, Denies home oxygen, Denies sleep apnea Gastrointestinal: Denies abdominal pain, Denies loss of appetite, Denies nausea, Denies vomiting Genitourinary: Denies dysuria, Denies hematuria, Denies urgency, Denies urinary frequency Musculoskeletal: Denies frequent falls, Denies gait dysfunction, Denies muscle weakness, Denies myalgias Integumentary: Denies pruritus, Denies rash, Denies wounds Neurological: Denies change in mentation, Denies change in speech, Denies confusion, Denies head injury, Denies numbness, Denies seizures, Denies weakness Psychiatric: Reports anxiety, Denies depression Endocrine: Reports fatigue, Reports high blood sugars, Denies weight change Gen: This is a 63-year-old female. Patient is sitting up in bed and appears to be comfortable. HEENT: Head is atraumatic, normocephalic. Pupils equal, round. Sclerae is anicteric. NECK: Supple. No JVD. No lymphadenopathy. No thyromegaly. LUNGS: Expiratory wheeze. No accessory muscle usage. No intercostal retractions. HEART: Regular rate and rhythm. No murmur. ABDOMEN: Soft. Bowel sounds are present. No masses. No tenderness. EXTREMITIES: No pedal edema. No calf tenderness. Dorsalis pedis +2 bilaterally. NEUROLOGICAL: Patient is awake, alert and oriented x3. Cranial nerves 2 through 12 are grossly intact. - Labs CBC & Chem 7: 12/02/18 07:34 12/02/18 07:34 Labs: Abnormal Lab Results - Last 24 Hours (Table) 12/03/18 12/03/18 12/03/18 Range/Units 11:36 17:09 20:13 POC Glucose (mg/dL) 260 H 136 H 193 H (75-99) mg/dL 12/04/18 Range/Units 06:48 POC Glucose (mg/dL) 190 H (75-99) mg/dL Microbiology - Last 24 Hours (Table) 11/30/18 15:44 Blood Culture - Preliminary Blood No Growth after 72 hours Assessment and Plan Plan: 1. Acute exacerbation of COPD, failed outpatient treatment. Pulmonary consult appreciated. DuoNeb treatments 4 times daily and every 4 hours as needed, Pulmicort 1 mg per nebulizer twice daily, Solu-Medrol will be decreased to 40 mg every 12 hours, doxycycline added by pulmonary medicine, continue Singulair and Claritin. 2. Diabetes mellitus type 2, new diagnosis, uncontrolled with hyperglycemia secondary to steroids. Levemir 10 units daily and NovoLog scale before meals and at bedtime. Continue metformin 500mg twice daily and add Tradjenta 5 mg daily. Patient is not with the life educator. Glucometer ordered. 3. Remote history of tobacco use and dependence. 4. Elevated liver function tests, recheck CMP tomorrow. 5. Fibromyalgia under the care of Dr. Morgan. Continue gabapentin 300 mg at bedtime 6. Hypertension. Continue lisinopril/hydrochlorothiazide 10/12.5 mg daily. 7. Hyperlipidemia. Continue atorvastatin 10 mg daily. 8. Glaucoma and recent right cataract surgery. will bring eyedrops from home. 9. Possible obstructive sleep apnea, patient would benefit from outpatient testing. 10. DVT prophylaxis. Lovenox. 11. GI prophylaxis. Protonix. 12. Oral thrush. Nystatin. Discharge plan: Home on Saturday Impression and plan of care have been directed as dictated by the signing physician. Gwendolyn Hernandez nurse practitioner acting as scribe for signing physician.
[2018-12-04] MEDS: LINAGLIPTIN 5 MG TABLET PO SCH (12:53)
--- NOTE | 2018-12-04 13:43 | P.PN ---
Subjective Progress Note Date: 12/04/18 Principal diagnosis: Acute exacerbation of chronic obstructive pulmonary disease. The patient is seen today 12/03/2018 in follow-up on the regular medical floor. She is currently resting comfortably in bed. Awake and alert in no acute distress. She is improved today as compared to yesterday but still not quite back to her baseline. Still dyspneic on minimal exertion. Still some expiratory wheezing. Blood culture reveals no growth. She remains on empiric antibiotics in the form of Vibramycin, DuoNeb inhalations, Pulmicort and Perforomist inhalations, IV Solu-Medrol. The patient is seen today 12/04/2018 in follow-up on the regular medical floor. She is currently resting comfortably in bed. Awake and alert in no acute distress. Maintaining O2 saturations in the 90s on room air. She's afebrile. Hemodynamically stable. Blood culture reveals no growth. She is continued on DuoNeb inhalations, Pulmicort and Perforomist inhalations, IV Solu-Medrol, Singulair, doxycycline. Objective - Vital Signs Vital signs: Vital Signs Temp 96.6 F L 12/04/18 11:40 Pulse 67 12/04/18 11:40 Resp 18 12/04/18 11:40 BP 132/83 12/04/18 11:40 Pulse Ox 91 L 12/04/18 11:40 Intake & Output 12/03/18 12/04/18 12/04/18 18:59 06:59 18:59 Intake Total 1080 Balance 1080 Intake: Oral 1080 Other: Voiding Method Toilet # Voids 4 2 - Exam GENERAL EXAM: Alert, pleasant, 63-year-old female patient with room air pulse ox of 91% comfortable in no apparent distress. HEAD: Normocephalic/atraumatic. EYES: Normal reaction of pupils, equal size. Conjunctiva pink, sclera white. NOSE: Clear with pink turbinates. THROAT: No erythema or exudates. NECK: No masses, no JVD, no thyroid enlargement, no adenopathy. CHEST: No chest wall deformity. Symmetrical expansion. LUNGS: Equal air entry with diminished air entry, and end expiratory wheezes, prolongation of expiratory phase of breathing CVS: Regular rate and rhythm, normal S1 and S2, no gallops, no murmurs, no rubs ABDOMEN: Soft, nontender. No hepatosplenomegaly, normal bowel sounds, no guarding or rigidity. EXTREMITIES: No clubbing, no edema, no cyanosis, 2+ pulses and upper and lower extremities. MUSCULOSKELETAL: Muscle strength and tone normal. SPINE: No scoliosis or deformity SKIN: No rashes CENTRAL NERVOUS SYSTEM: No focal deficits, tone is normal in all 4 extremities. PSYCHIATRIC: Alert and oriented -3. Appropriate affect. Intact judgment and insight. - Labs CBC & Chem 7: 12/02/18 07:34 12/02/18 07:34 Labs: Abnormal Lab Results - Last 24 Hours (Table) 12/03/18 12/03/18 12/04/18 Range/Units 17:09 20:13 06:48 POC Glucose (mg/dL) 136 H 193 H 190 H (75-99) mg/dL 12/04/18 Range/Units 11:12 POC Glucose (mg/dL) 170 H (75-99) mg/dL Microbiology - Last 24 Hours (Table) 11/30/18 15:44 Blood Culture - Preliminary Blood No Growth after 72 hours Assessment and Plan Assessment: Assessment: #1. Acute exacerbation of chronic obstructive pulmonary disease, no evidence of pneumonia #2. 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 History of cardiomegaly #4. Hypertension #5. Hyperlipidemia #6. Prior episodes of pneumonia #7. Recurrent episodes of acute bronchitis Plan: The patient was seen and evaluated by Dr. Bryant. She is cleared for discharge from the pulmonary standpoint. She should be maintained on maintenance inhaler consisting of either Symbicort, Advair, Dulera, Breo. DuoNeb inhalations with a nebulizer. Rescue inhaler in the form of albuterol HFA. Complete prednisone taper starting at 40 mg for 4 days. Complete course of antibiotics. Follow-up in our office in 1-2 weeks' time. She is encouraged to call sooner with any recurrence of symptoms or other questions or concerns. I, the cosigning physician, performed a history & physical examination of the patient. Lungs sounds with bilateral end expiratory wheeze. Maintaining good O2 saturations in the 90s on room air. I discussed the assessment and plan of care with my nurse practitioner, Edna Spears. I attest to the above note as dictated by her.
[2018-12-04 17:18] LABS: Glucose,Whole Blood 162 mg/dL (75-99)
[2018-12-04 20:03] LABS: Glucose,Whole Blood 127 mg/dL (75-99)
[2018-12-04] MEDS: GABAPENTIN 300 MG CAP PO SCH (21:47)
[2018-12-05 02:00] LABS: Glucose,Whole Blood 207 mg/dL (75-99)
[2018-12-05 06:58] LABS: Glucose,Whole Blood 180 mg/dL (75-99)
[2018-12-05] MEDS: BUDESONIDE 1 MG/2 ML NEBU INHALATION SCH (08:09)
[2018-12-05] MEDS: FORMOTEROL FUMARATE 20 MCG/2 ML NEBU INHALATION SCH (08:09)
[2018-12-05] MEDS: TIMOLOL RIGHT EYE SCH (08:09)
[2018-12-05] MEDS: IPRATROPIUM-ALBUTEROL 3 ML NEB INHALATION SCH ×2 (08:09→11:19)
[2018-12-05] MEDS: DICLOFENAC 0.1% RIGHT EYE SCH (08:09)
[2018-12-05] MEDS: BRIMONIDINE TARTRATE RIGHT EYE SCH (08:09)
[2018-12-05] MEDS: PREDNISOLONE ACETATE RIGHT EYE SCH (08:09)
[2018-12-05] MEDS: INSULIN DETEMIR (LEVEMIR) 100 UNIT/ML SYR SQ SCH (08:10)
[2018-12-05] MEDS: SENNOSIDES-DOCUSATE SODIUM 1 EACH TAB PO SCH (08:10)
[2018-12-05] MEDS: INSULIN ASPART (NovoLOG) 100 UNIT/ML VIAL SQ SCH ×2 (08:10→11:20)
[2018-12-05] MEDS: NYSTATIN 100,000 UNIT/ML SUSP 500,000 UNIT/5 ML CUP PO SCH (08:10)
[2018-12-05] MEDS: ATORVASTATIN 10 MG TAB PO SCH (08:11)
[2018-12-05] MEDS: LORATADINE 10 MG TAB PO SCH (08:11)
[2018-12-05] MEDS: LINAGLIPTIN 5 MG TABLET PO SCH (08:11)
[2018-12-05] MEDS: LISINOPRIL-HCTZ 10-12.5 MG 1 EACH TAB PO SCH (08:11)
[2018-12-05] MEDS: ENOXAPARIN 40 MG/0.4 ML SYRINGE SQ SCH (08:11)
[2018-12-05] MEDS: methylPREDNISolone SOD SUCCI 40 MG/ML 1 ML VIAL IV SCH (08:11)
[2018-12-05] MEDS: DOXYCYCLINE 100 MG CAP PO SCH (08:11)
[2018-12-05] MEDS: PANTOPRAZOLE 40 MG TABLET PO SCH (08:11)
[2018-12-05] MEDS: metFORMIN 500 MG TAB PO SCH (08:11)
[2018-12-05] MEDS: MONTELUKAST 10 MG TAB PO SCH (08:11)
[2018-12-05 11:16] LABS: Glucose,Whole Blood 132 mg/dL (75-99)
--- NOTE | 2018-12-05 11:31 | P.PN ---
Subjective Progress Note Date: 12/05/18 Principal diagnosis: Acute exacerbation of chronic obstructive pulmonary disease. The patient is seen today 12/03/2018 in follow-up on the regular medical floor. She is currently resting comfortably in bed. Awake and alert in no acute distress. She is improved today as compared to yesterday but still not quite back to her baseline. Still dyspneic on minimal exertion. Still some expiratory wheezing. Blood culture reveals no growth. She remains on empiric antibiotics in the form of Vibramycin, DuoNeb inhalations, Pulmicort and Perforomist inhalations, IV Solu-Medrol. The patient is seen today 12/04/2018 in follow-up on the regular medical floor. She is currently resting comfortably in bed. Awake and alert in no acute distress. Maintaining O2 saturations in the 90s on room air. She's afebrile. Hemodynamically stable. Blood culture reveals no growth. She is continued on DuoNeb inhalations, Pulmicort and Perforomist inhalations, IV Solu-Medrol, Singulair, doxycycline. The patient is seen today 12/05/2017 in follow-up on the regular medical floor. She is currently resting comfortably in bed. Awake and alert in no acute distress. She is maintaining O2 saturations in the 90s on room air. She's been up ambulating without significant shortness of breath. No worsening cough or congestion. End expiratory wheeze only. Blood culture reveals no growth. Blood sugar 132. Objective - Vital Signs Vital signs: Vital Signs Temp 96.9 F L 12/05/18 05:00 Pulse 72 12/05/18 11:20 Resp 18 12/05/18 05:00 BP 137/63 12/05/18 05:00 Pulse Ox 100 12/05/18 05:00 Intake & Output 12/04/18 12/05/18 12/05/18 18:59 06:59 18:59 Other: Voiding Method Toilet Toilet # Voids 4 2 - Exam GENERAL EXAM: Alert, pleasant, 63-year-old female patient on room air, comfortable in no apparent distress. HEAD: Normocephalic/atraumatic. EYES: Normal reaction of pupils, equal size. Conjunctiva pink, sclera white. NOSE: Clear with pink turbinates. THROAT: No erythema or exudates. NECK: No masses, no JVD, no thyroid enlargement, no adenopathy. CHEST: No chest wall deformity. Symmetrical expansion. LUNGS: Equal air entry with diminished air entry, and faint end expiratory wheezes CVS: Regular rate and rhythm, normal S1 and S2, no gallops, no murmurs, no rubs ABDOMEN: Soft, nontender. No hepatosplenomegaly, normal bowel sounds, no guarding or rigidity. EXTREMITIES: No clubbing, no edema, no cyanosis, 2+ pulses and upper and lower extremities. MUSCULOSKELETAL: Muscle strength and tone normal. SPINE: No scoliosis or deformity SKIN: No rashes CENTRAL NERVOUS SYSTEM: No focal deficits, tone is normal in all 4 extremities. PSYCHIATRIC: Alert and oriented -3. Appropriate affect. Intact judgment and insight. - Labs CBC & Chem 7: 12/02/18 07:34 12/02/18 07:34 Labs: Abnormal Lab Results - Last 24 Hours (Table) 12/04/18 12/04/18 12/05/18 Range/Units 17:17 20:01 01:58 POC Glucose (mg/dL) 162 H 127 H 207 H (75-99) mg/dL 12/05/18 12/05/18 Range/Units 06:56 11:14 POC Glucose (mg/dL) 180 H 132 H (75-99) mg/dL Microbiology - Last 24 Hours (Table) 11/30/18 15:44 Blood Culture - Preliminary Blood No Growth after 96 hours Assessment and Plan Assessment: Assessment: #1. Acute exacerbation of chronic obstructive pulmonary disease, no evidence of pneumonia #2. 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 History of cardiomegaly #4. Hypertension #5. Hyperlipidemia #6. Prior episodes of pneumonia #7. Recurrent episodes of acute bronchitis Plan: The patient was seen and evaluated by Dr. Bryant. Cleared for discharge from the pulmonary standpoint. She should be on a maintenance inhaler consisting of e ither Symbicort, Advair, Dulera, Breo. DuoNeb inhalations with a nebulizer. Rescue inhaler in the form of albuterol HFA. Complete prednisone taper starting at 40 mg for 4 days. Complete a course of antibiotics. Follow-up in our office in 1-2 weeks' time. She is encouraged to call sooner with any recurrence of symptoms or other questions or concerns. I, the cosigning physician, performed a history & physical examination of the patient. Lungs sounds with bilateral end expiratory wheeze. Maintaining good O2 saturations in the 90s on room air. I discussed the assessment and plan of care with my nurse practitioner, Edna Spears. I attest to the above note as dictated by her.
[2018-12-05 11:53] VITALS: BP 175/82; PULSE 75; TEMP 97
[2018-12-05] MEDS ORDERED: LISINOPRIL 10 MG TAB PO STA (13:09)
--- NOTE | 2018-12-05 15:29 | P.DS ---
Providers Date of admission: 12/02/18 15:37 Expected date of discharge: 12/05/18 Attending physician: Bj Pardo Consults: 11/30/18 17:33 Consult Physician Routine Consulting Provider: Perfecto Berger Consult Reason/Comments: dyspnea Do you want consulting provider notified?: Yes [facility]: This is a 63-year-old female patient of Dr. Brown with past medical history of COPD, fibromyalgia under the care of Dr. Morgan, hyperlipidemia, hypertension, glaucoma and recent cataract surgery. Patient followed with a mail messenger in the [facility] and was told she had moderate COPD years ago. She does not currently have a pulmonary doctor. Patient has had increasing cough and shortness of breath for the last couple of weeks. She has been seen by her primary care doctor and emergency center at [facility]. She was started on DuoNeb treatments. She has completed a course of doxycycline. She is currently on prednisone as well. She complains of difficulty breathing out, dry cough. No fever or chills. She has been using her nebulizer 4 times daily without improvement. She denies history of obstructive sleep apnea but her reports that she snores, she has not had a sleep study done in the past. She is complaining of abdominal bloating since she started prednisone. Patient came into [facility] emergency center for evaluation. She was afebrile, heart rate 86, pulse ox 96% on room air, blood pressure 152/88. EKG was a sinus rhythm with no acute ST changes. White count 13.1, hemoglobin 13.5, platelet count 277. Blood sugar 241 without history of diabetes. BUN 12 and creatinine 0.63. D-dimer 0.39. Alkaline phosphatase 144, ALT 74, AST 39. ProBNP 39. Chest x-ray reveals no acute cardiopulmonary process. Patient was started on IV Solu-Medrol and DuoNeb treatments and admitted to the MedSur floor. Consult with Dr. Berger in place. At the time of this evaluation, patient has had improvement of her respiratory function, she continues to have cough. 12/02: Patient has been seen by Dr. Bryant with plan for follow-up in the office. He has increased her Solu-Medrol back to 60 every 6 hours and added in doxycycline. She has been afebrile. Blood pressure 113/74, pulse ox 97% on room air, heart rate in the 60s. Blood sugars have been running in the low 200s. Repeat lab work this morning reveals sodium of 135, AST 33, ALT 65, alkaline phosphatase 116. Blood culture no growth after 24 hours. Patient states that she is very emotional this morning. states there have been some issues going on and this may be impacted also by the Solu-Medrol. Patient states this morning she was feeling tight and still wheezing. No changes will be made to her medications She is complaining of constipation as her last bowel movement was on Saturday and Senokot added. 12/03: Patient states that today is her best day so far. She continues to cough with sputum production. Her breathing is improved from yesterday. Echocardiogram reveals EF of 55-60%, mild concentric left ventricular hypertrophy, mild mitral regurgitation, mild tricuspid regurgitation. Hem oglobin A1c is 7.6 and patient will be started on metformin which will be continued per home. She has met with the hematology nurse educator. Patient states that she has a glucometer that was her father's which she will use to check her blood sugars at home. Solu-Medrol will be decreased to 40 mg every 8 hours. Anticipate discharge home in next 48 hours. 12/04: Patient's breathing status continues to improve. Solu-Medrol will be changed to 40 mg every 12 hours with plan for prednisone for discharge. She has met with hematology nurse educator. We will also add in Tradjenta with plan for Tradjenta and metformin at discharge. Blood sugars are running a little between 136 and 193. She remains afebrile, heart rate in the 60s and 70s, blood pressure 132/83, pulse ox 91% on room air. Anticipate discharge home tomorrow. 12/05: Patient is prepared for discharge home today. Medication adjustments have been made depending on coverage by her insurance. Blood pressure is running high for which Zestoretic increased to 2012 0.5 mg. Additional dose of lisinopril will be given prior to discharge. Patient will be discharged home today in stable condition. Discharge diagnoses: 1. Acute exacerbation of COPD, failed outpatient treatment. 2. Diabetes mellitus type 2, new diagnosis, uncontrolled with hyperglycemia secondary to steroids. 3. Remote history of tobacco use and dependence. 4. Elevated liver function tests, resolved 5. Fibromyalgia under the care of Dr. Morgan. 6. Hypertension. 7. Hyperlipidemia. 8. Glaucoma and recent right cataract surgery. 9. Possible obstructive sleep apnea, patient would benefit from outpatient testing. 10. Oral thrush. Nystatin. Discharge plan: Home with [facility] Impression and plan of care have been directed as dictated by the signing physician. Gwendolyn Hernandez nurse practitioner acting as scribe for signing physician. Patient Condition at Discharge: Good Plan - Discharge Summary Discharge Rx Participant: Yes New Discharge Prescriptions: New sitaGLIPtin [Januvia] 100 mg PO DAILY #30 tab Ipratropium-Albuterol Nebulize [Duoneb 0.5 mg-3 mg/3 ml Soln] 3 ml INHALATION RT-QID #120 ampul.neb metFORMIN HCL [Glucophage] 500 mg PO BID-W/MEALS #60 tab Nystatin 100,000 Unit/ml Susp [Mycostatin Oral Susp] 500,000 unit PO QID #20 cup predniSONE 0 mg PO DIRECTED #30 tab Doxycycline [Vibramycin] 100 mg PO BID #10 cap Lisinopril-Hctz 20-12.5 mg [Zestoretic 20-12.5] 1 each PO DAILY #30 tab Fluticasone/Salmeterol [Airduo Respiclick 232-14 Mcg] 1 puff INHALATION Q12H #1 device Continue Albuterol Sulfate [Proair Hfa] 1 - 2 puff INHALATION RT-Q4H PRN PRN Reason: Shortness Of Breath Loratadine [Claritin] 10 mg PO DAILY Gabapentin [Neurontin] 300 mg PO HS Ergocalciferol (Vitamin D2) [Vitamin D2] 50,000 unit PO WE Atorvastatin [Lipitor] 10 mg PO DAILY Montelukast [Singulair] 10 mg PO DAILY Brimonidine Tartrate/Timolol [Combigan 0.2%-0.5% Eye Drops] 1 drop RIGHT EYE QID Prednisolone Acetate/Pf [Prednisolone Acet 1% Eye Drop] 1 drop RIGHT EYE QID Diclofenac 0.1% Ophth Soln [Voltaren 0.1% Ophth Soln] 1 drop RIGHT EYE QID Discontinued Beclomethasone Dipropionate [Qvar 40 mcg Redihaler] 1 puff INHALATION RT-BID predniSONE See Taper PO DAILY Lisinopril-Hctz 10-12.5 mg [Zestoretic 10-12.5] 1 tab PO DAILY Albuterol Nebulized [Ventolin Nebulized] 2.5 mg INHALATION RT-Q4H PRN PRN Reason: Shortness Of Breath Discharge Medication List Albuterol Sulfate [Proair Hfa] 1 - 2 puff INHALATION RT-Q4H PRN 11/30/18 [History] Atorvastatin [Lipitor] 10 mg PO DAILY 11/30/18 [History] Ergocalciferol (Vitamin D2) [Vitamin D2] 50,000 unit PO WE 11/30/18 [History] Gabapentin [Neurontin] 300 mg PO HS 11/30/18 [History] Loratadine [Claritin] 10 mg PO DAILY 11/30/18 [History] Montelukast [Singulair] 10 mg PO DAILY 11/30/18 [History] Brimonidine Tartrate/Timolol [Combigan 0.2%-0.5% Eye Drops] 1 drop RIGHT EYE QID 12/01/18 [History] Diclofenac 0.1% Ophth Soln [Voltaren 0.1% Ophth Soln] 1 drop RIGHT EYE QID 12/01/18 [History] Prednisolone Acetate/Pf [Prednisolone Acet 1% Eye Drop] 1 drop RIGHT EYE QID 12/01/18 [History] Doxycycline [Vibramycin] 100 mg PO BID #10 cap 12/05/18 [Rx] Fluticasone/Salmeterol [Airduo Respiclick 232-14 Mcg] 1 puff INHALATION Q12H #1 device 12/05/18 [Rx] Ipratropium-Albuterol Nebulize [Duoneb 0.5 mg-3 mg/3 ml Soln] 3 ml INHALATION RT-QID #120 ampul.neb 12/05/18 [Rx] Lisinopril-Hctz 20-12.5 mg [Zestoretic 20-12.5] 1 each PO DAILY #30 tab 12/05/18 [Rx] Nystatin 100,000 Unit/ml Susp [Mycostatin Oral Susp] 500,000 unit PO QID #20 cup 12/05/18 [Rx] metFORMIN HCL [Glucophage] 500 mg PO BID-W/MEALS #60 tab 12/05/18 [Rx] predniSONE 0 mg PO DIRECTED #30 tab 12/05/18 [Rx] sitaGLIPtin [Januvia] 100 mg PO DAILY #30 tab 12/05/18 [Rx] Follow up Appointment(s)/Referral(s): Education, Diabetes [Other] - As Needed (Diabetes educators will contact patient to schedule appointment ) Pete Bryant DO [Doctor of Osteopathic Medicine] - 12/23/18 3:00 pm (patient will see kim ruiz) [facility], [NON-STAFF] - 1 Week Julian Brown MD [Primary Care Provider] - 1 Week (office is closed on .patient will have to call and schedule own appt.) Patient Instructions/Handouts: Doxycycline (By mouth), Albuterol (By breathing), Prednisone (By mouth), Nystatin (By mouth), Metformin (By mouth), Lisinopril/Hydrochlorothiazide (By mouth), Sitagliptin (By mouth), COPD (Chronic Obstructive Pulmonary Disease) (DC) Activity/Diet/Wound Care/Special Instructions: pt will be sent home with a glucometer and supplies for a new dx of diabetes. Check blood sugar in a.m. while fasting and 2hours after dinner. Discharge Disposition: HOME WITH HOME HEALTH SERVICES
[2018-12-06] MEDS ORDERED: LISINOPRIL-HCTZ 20-12.5 MG 1 EACH TAB PO SCH (09:00)
== END 2018-12-05 15:10 | disposition home health service (06) | DRG 191 ==
LOC: EC 14:36 → 3NMEDONC 17:38 → OBSVTOIN 12-02 15:37
PROVIDERS: ADMIT Internal Medicine; ATTEND Internal Medicine
DX: J44.0 Chronic obstructive pulmonary disease with (acute) lower respiratory infection (principal); B37.0 Candidal stomatitis; J44.1 Chronic obstructive pulmonary disease with (acute) exacerbation; I11.9 Hypertensive heart disease without heart failure; E11.65 Type 2 diabetes mellitus with hyperglycemia; I08.1 Rheumatic disorders of both mitral and tricuspid valves; G47.33 Obstructive sleep apnea (adult) (pediatric); E78.5 Hyperlipidemia, unspecified; J20.9 Acute bronchitis, unspecified; T38.0X5A Adverse effect of glucocorticoids and synthetic analogues, initial encounter; K59.00 Constipation, unspecified; M79.7 Fibromyalgia; H40.9 Unspecified glaucoma; Z79.51 Long term (current) use of inhaled steroids; Z79.899 Other long term (current) drug therapy; Z87.01 Personal history of pneumonia (recurrent); Z98.891 History of uterine scar from previous surgery; Z98.41 Cataract extraction status, right eye; Z87.891 Personal history of nicotine dependence; Z88.5 Allergy status to narcotic agent; Z82.5 Family history of asthma and other chronic lower respiratory diseases; Z80.3 Family history of malignant neoplasm of breast; Z83.3 Family history of diabetes mellitus
CPT/HCPCS: 36415; 71046; 80053; 83036; 83880; 85025; 85027; 85379; 85610; 85730; 87040; 93005; 93306; 94640; 94760; 96374; 99285

== ENCOUNTER 2019-05-15 10:23 | Observation (INO) | payer OTHER ==
[2019-05-15] MEDS ORDERED: SODIUM CHLORIDE 0.9% 500 ML 500 ML IV STA (10:32)
--- NOTE | 2019-05-15 11:08 | XR ---
EXAMINATION TYPE: XR KUB DATE OF EXAM: 05/15/2019 Comparison: None Clinical History: 63-year-old female abdominal pain Findings: No evidence for free intraperitoneal air. No dilated small bowel or differential air-fluid levels. Scattered mild stool throughout the colon. Large patient body habitus. No definite suspicious calcifications seen. Impression: Mild stool burden. No evidence for free air or bowel obstruction.
[2019-05-15 11:10] LABS: Basophils % (A) 0 %; Eosinophils # (A) 0.1 k/uL (0-0.7); Eosinophils % (A) 1 %; HCT 41.7 % (34.0-46.0); HGB 13.7 gm/dL (11.4-16.0); Lymphocytes # (A) 0.9 k/uL (1.0-4.8); Lymphocytes % (A) 7 %; MCH 25.7 pg (25.0-35.0); MCHC 32.9 g/dL (31.0-37.0); MCV 78.2 fL (80.0-100.0); Mean Platelet Volume 7.5; Monocytes # (A) 0.4 k/uL (0-1.0); Monocytes % (A) 3 %; Neutrophils # (A) 11.8 k/uL (1.3-7.7); Neutrophils % (A) 88 %; Platelet Count 268 k/uL (150-450); RBC 5.34 m/uL (3.80-5.40); RDW 14.4 % (11.5-15.5); WBC 13.4 k/uL (3.8-10.6)
[2019-05-15 11:45] LABS: ALT 89 U/L (4-34); AST 69 U/L (14-36); African American GFR (CKD) >90 (>60 ml/min/1.73 sqM); Albumin 4.6 g/dL (3.5-5.0); Alkaline Phosphatase 130 U/L (38-126); Amylase 68 U/L (30-110); Anion Gap 10 mmol/L; Blood Urea Nitrogen 8 mg/dL (7-17); Calcium 10.1 mg/dL (8.4-10.2); Carbon Dioxide 24 mmol/L (22-30); Chloride 100 mmol/L (98-107); Glucose 171 mg/dL (74-99); Non-African American GFR(CKD) >90 (>60 ml/min/1.73 sqM); Sodium 134 mmol/L (137-145); Total Bilirubin 0.9 mg/dL (0.2-1.3); Total Protein 8.1 g/dL (6.3-8.2)
[2019-05-15 11:58] LABS: Potassium 4.2 mmol/L (3.5-5.1)
--- NOTE | 2019-05-15 12:07 | US ---
EXAMINATION TYPE: US abdomen limited DATE OF EXAM: 05/15/2019 COMPARISON: NONE CLINICAL HISTORY: 63-year-old RUQ/epigastric pain. TECHNIQUE: Multiple sonographic images of the right upper quadrant are obtained. FINDINGS: Rn Icu notes: Limited due to body habitus and gas EXAM MEASUREMENTS: Liver Length: 20.4 cm Gallbladder Wall: .3 cm CBD: .5 cm Right Kidney: 11.2 x 4.5 x 4.3 cm Pancreas: Obscured by bowel gas Liver: Echogenic with marked attenuation. The secondary limits assessment for focal lesion. Liver is enlarged. Gallbladder: Upper limits 10.6 cm. Phrygian cap is noted. No surrounding fluid or shadowing calculi. Wall thickness is borderline at 3 mm. Evidence for sonographic Snyder's sign: Yes CBD: wnl Right Kidney: wnl IMPRESSION: 1. Hepatomegaly (20.4 cm) with severe hepatic steatosis. The secondarily limits assessment for focal lesions. 2. Sonographic Snyder sign is reported positive. No gallstone seen. This may reflect referred pain fr om the liver. If further imaging evaluation of the gallbladder is desired, HIDA scan with ejection fr action can be performed. 3. No biliary ductal dilatation.
--- NOTE | 2019-05-15 13:12 | CT ---
EXAMINATION TYPE: CT abdomen pelvis w con DATE OF EXAM: 05/15/2019 COMPARISON: Ultrasound same date HISTORY: Generalized abdominal pain, back pain, and nausea. CT DLP: 1929 mGycm Automated exposure control for dose reduction was used. TECHNIQUE: Helical acquisition of images from the lung bases through the pelvis have been completed. CONTRAST: Performed without Oral Contrast and with IV Contrast, patient injected with 100 mL of Isovue 300. FINDINGS: LUNG BASES: No significant abnormality is appreciated. AORTA: No significant abnormality is appreciated. LIVER/GB: Liver is enlarged and shows low attenuation consistent with hepatic steatosis, gallbladder is normal. PANCREAS: Pancreas shows no mass. There is inflammatory change within the mesenteric fat surrounding the pancreatic head. SPLEEN: No significant abnormality is seen. ADRENALS: No significant abnormality is seen. KIDNEYS: No significant abnormality is seen. REPRODUCTIVE ORGANS: No significant abnormality is seen BOWEL: There is inflammatory change adjacent to the second and third portion of the duodenum and pendleton creatic head as well as perigastric mesenteric inflammatory change. Stomach shows wall thickening pos sibly due to lack of distention, difficult to exclude gastritis, peptic ulcer disease proximal duoden um. FREE AIR: No Free Air visible. ASCITES: None visible. PELVIC ADENOPATHY: None visualized. RETROPERITONEAL ADENOPATHY: No Retroperitoneal Adenopathy visible. URINARY BLADDER: No significant abnormality is seen. OSSEOUS STRUCTURES: Degenerative disc change present at the lumbosacral junction.. IMPRESSION: CORRELATE FOR PANCREATITIS OR POSSIBLY PEPTIC ULCER DISEASE, GASTRITIS, SUGGEST X-RAY NEUROLOGY CONSU LT. PROBABLE HEPATIC STEATOSIS, THERE IS HEPATOMEGALY.
[2019-05-15] MEDS ORDERED: HYDROmorphone 0.5 MG/0.5 ML SYRINGE IVP STA (13:24)
[2019-05-15] MEDS ORDERED: ONDANSETRON 4 MG/2 ML VIAL IVP STA (13:29)
[2019-05-15 13:33] LABS: Albumin 4.8 g/dL (3.5-5.0); Bilirubin, Delta 0.1 mg/dL (0.0-0.2); Bilirubin,Unconjugated 0.7 mg/dL (0.0-1.1); Total Bilirubin 0.8 mg/dL (0.2-1.3); Total Protein 8.3 g/dL (6.3-8.2)
[2019-05-15 13:47] LABS: Appearance,Urine Clear (Clear); Bilirubin,Urine Negative (Negative); Blood,Urine Negative (Negative); Color,Urine Yellow; Glucose,Urine (UA) Negative (Negative); Ketones,Urine Negative (Negative); Leukocyte Esterase,Urine Negative (Negative); Nitrite,Urine Negative (Negative); PH, Urine 7.5 (5.0-8.0); Protein,Urine Negative (Negative); Specific Gravity,Urine 1.039 (1.001-1.035); Urobilinogen,Urine <2.0 mg/dL (<2.0)
[2019-05-15] MEDS ORDERED: ONDANSETRON 4 MG/2 ML VIAL IVP PRN (14:06)
[2019-05-15] MEDS ORDERED: NALOXONE 0.4 MG/ML 1 ML VIAL IV PRN (14:06)
--- NOTE | 2019-05-15 14:07 | ED ---
Abdominal Pain HPI - General Chief Complaint: Abdominal Pain Stated Complaint: abd/back pain Time Seen by Provider: 05/15/19 10:32 Source: patient Mode of arrival: ambulatory Limitations: no limitations - History of Present Illness Initial Comments: 63-year-old female presents today for chief complaint of epigastric pain that radiates to her back that began yesterday evening. Patient states she had very sharp epigastric pain that radiates towards her back she states at times he feels sick and may be the right upper quadrant. Patient states she has had some loose stools she's been very nauseous and has had episodes of vomiting. Patient states she has no appetite. Patient states she has had chills but denies fevers. Patient denies any melena hematochezia chest pain shortness of breath patient denies any ripping tearing thoracic back pain. Patient denies any headache dizziness or lower abdominal pain remaining review of systems negative patient denies any history of chronic pancreatitis. Upon arrival patient appears well signs of acute distress - Related Data Home Medications Medication Instructions Recorded Confirmed Albuterol Sulfate [Proair Hfa] 1 - 2 puff INHALATION RT-Q4H PRN 11/30/18 Atorvastatin [Lipitor] 10 mg PO DAILY 11/30/18 12/11/18 Ergocalciferol (Vitamin D2) 50,000 unit PO WE 11/30/18 12/11/18 [Vitamin D2] Gabapentin [Neurontin] 300 mg PO HS 11/30/18 12/11/18 Loratadine [Claritin] 10 mg PO DAILY 11/30/18 12/11/18 Montelukast [Singulair] 10 mg PO DAILY 11/30/18 12/11/18 Brimonidine Tartrate/Timolol 1 drop RIGHT EYE QID 12/01/18 12/11/18 [Combigan 0.2%-0.5% Eye Drops] Diclofenac 0.1% Ophth Soln 1 drop RIGHT EYE QID 12/01/18 12/11/18 [Voltaren 0.1% Ophth Soln] Prednisolone Acetate/Pf 1 drop RIGHT EYE QID 12/01/18 12/11/18 [Prednisolone Acet 1% Eye Drop] Previous Rx's Medication Instructions Recorded Doxycycline [Vibramycin] 100 mg PO BID #10 cap 12/05/18 Fluticasone/Salmeterol [Airduo 1 puff INHALATION Q12H #1 device 12/05/18 Respiclick 232-14 Mcg] Ipratropium-Albuterol Nebulize 3 ml INHALATION RT-QID #120 12/05/18 [Duoneb 0.5 mg-3 mg/3 ml Soln] ampul.neb Lisinopril-Hctz 20-12.5 mg 1 each PO DAILY #30 tab 12/05/18 [Zestoretic 20-12.5] Nystatin 100,000 Unit/ml Susp 500,000 unit PO QID #20 cup 12/05/18 [Mycostatin Oral Susp] metFORMIN HCL [Glucophage] 500 mg PO BID-W/MEALS #60 tab 12/05/18 predniSONE 0 mg PO DIRECTED #30 tab 12/05/18 Allergies Allergy/AdvReac Type Severity Reaction Status Date / Time codeine Allergy Unknown Verified 05/15/19 10:28 Review of Systems ROS Statement: Those systems with pertinent positive or pertinent negative responses have been documented in the HPI. ROS Other: All systems not noted in ROS Statement are negative. Past Medical History Past Medical History: COPD, Diabetes Mellitus, Fibromyalgia, Hyperlipidemia, Hypertension, Pneumonia History of Any Multi-Drug Resistant Organisms: None Reported Past Surgical History: Section Additional Past Surgical History / Comment(s): cataracts surgery Past Anesthesia/Blood Transfusion Reactions: No Reported Reaction Past Psychological History: No Psychological Hx Reported Smoking Status: Former smoker Past Alcohol Use History: None Reported Past Drug Use History: None Reported - Past Family History Sister(s) Family Medical History: Cancer Additional Family Medical History / Comment(s): Patient has a total of 6 sisters and all have lung problems such as chronic bronchitis, COPD or asthma, any of diabetes. Breast cancer Brother(s) Additional Family Medical History / Comment(s): The patient is a total of 4 br others and 2 in a fire. Father Additional Family Medical History / Comment(s): Both mother and father are with unknown medical issues. General Exam - General Exam Comments Initial Comments: General: The patient is awake and alert, in no distress Eye: Pupils are equal, round and reactive to light, extra-ocular movements are intact. No nystagmus. There is normal conjunctiva bilaterally. No signs of icterus. Ears, nose, mouth and throat: There are moist mucous membranes and no oral lesions. Neck: The neck is supple, there is no tenderness or JVD. Cardiovascular: There is a regular rate and rhythm. No murmur, rub or gallop is appreciated. Respiratory: Lungs are clear to auscultation, respirations are non-labored, breath sounds are equal. No wheezes, stridor, rales, or rhonchi. Gastrointestinal: Soft, non-distended, exquisitely tender epigastric region as well as right upper quadrant with a positive Snyder sign the remaining abdomen is nontender and without masses or organomegaly noted. There is no rebound or gu arding present. No CVA tenderness. Bowel sounds are unremarkable. Musculoskeletal: Normal ROM, no tenderness. Strength 5/5. Sensation intact. Pulses equal bilaterally 2+. Neurological: A&O x 3. CN II-XII intact grossly, There are no obvious motor or sensory deficits. Coordination appears grossly intact. Speech is normal. Skin: Skin is warm and dry and no rashes or lesions are noted. Psychiatric: Cooperative, appropriate mood & affect, normal judgment. Limitations: no limitations Course Vital Signs 05/15/19 05/15/19 05/15/19 10:25 12:00 13:30 Temperature 98 F Pulse Rate 97 61 Respiratory 20 18 18 Rate Blood Pressure 169/94 144/87 O2 Sat by Pulse 98 97 Oximetry 05/15/19 14:00 Temperature Pulse Rate 95 Respiratory 18 Rate Blood Pressure 162/92 O2 Sat by Pulse 98 Oximetry Medical Decision Making - Medical Decision Making 63-year-old female presented for epigastric pain patient has mild leukocytosis lipase within normal limits however CT is concerning for pancreatitis. Patient's pain does appear classic for pancreatitis as it is epigastric radiating to back. Patient has chronic ptosis which she is aware of there is elevation of transaminases however patient states this has been noted be chronic as well. Patient has mild leukocytosis after multiple doses of IV analgesics patient continues to have severe discomfort. At this and we'll admit patient for GI consultation patient be ordered nothing by mouth with IV hydration. I discussed the case with Dr. Braga who is agreeable to this care plan admission and consultation of Dr. Pompa. Dr. Rios accepted admission. - Lab Data Result diagrams: 05/15/19 10:14 05/15/19 10:14 Lab Results 05/15/19 05/15/19 05/15/19 Range/Units 10:14 10:14 10:14 WBC 13.4 H (3.8-10.6) k/uL RBC 5.34 (3.80-5.40) m/uL Hgb 13.7 (11.4-16.0) gm/dL Hct 41.7 (34.0-46.0) % MCV 78.2 L (80.0-100.0) fL MCH 25.7 (25.0-35.0) pg MCHC 32.9 (31.0-37.0) g/dL RDW 14.4 (11.5-15.5) % Plt Count 268 (150-450) k/uL Neutrophils % 88 % Lymphocytes % 7 % Monocytes % 3 % Eosinophils % 1 % Basophils % 0 % Neutrophils # 11.8 H (1.3-7.7) k/uL Lymphocytes # 0.9 L (1.0-4.8) k/uL Monocytes # 0.4 (0-1.0) k/uL Eosinophils # 0.1 (0-0.7) k/uL Basophils # 0.0 (0-0.2) k/uL Sodium 134 L (137-145) mmol/L Potassium 4.2 (3.5-5.1) mmol/L Chloride 100 (98-107) mmol/L Carbon Dioxide 24 (22-30) mmol/L Anion Gap 10 mmol/L BUN 8 (7-17) mg/dL Creatinine 0.52 (0.52-1.04) mg/dL Est GFR (CKD-EPI)AfAm >90 (>60 ml/min/1.73 sqM) Est GFR (CKD-EPI)NonAf >90 (>60 ml/min/1.73 sqM) Glucose 171 H (74-99) mg/dL Plasma Lactic Acid Scott 1.6 (0.7-2.0) mmol/L Calcium 10.1 (8.4-10.2) mg/dL Total Bilirubin 0.9 (0.2-1.3) mg/dL Conjugated Bilirubin (0.0-0.3) mg/dL Unconjugated Bilirubin (0.0-1.1) mg/dL Delta Bilirubin (0.0-0.2) mg/dL AST 69 H (14-36) U/L ALT 89 H (4-34) U/L Alkaline Phosphatase 130 H (38-126) U/L Troponin I (0.000-0.034) ng/mL Total Protein 8.1 (6.3-8.2) g/dL Albumin 4.6 (3.5-5.0) g/dL Amylase 68 (30-110) U/L Lipase 104 (23-300) U/L Urine Color Urine Appearance (Clear) Urine pH (5.0-8.0) Ur Specific [place] (1.001-1.035) Urine Protein (Negative) Urine Glucose (UA) (Negative) Urine Ketones (Negative) Urine Blood (Negative) Urine Nitrite (Negative) Urine Bilirubin (Negative) Urine Urobilinogen (<2.0) mg/dL Ur Leukocyte Esterase (Negative) 05/15/19 05/15/19 05/15/19 Range/Units 10:14 10:14 13:35 WBC (3.8-10.6) k/uL RBC (3.80-5.40) m/uL Hgb (11.4-16.0) gm/dL Hct (34.0-46.0) % MCV (80.0-100.0) fL MCH (25.0-35.0) pg MCHC (31.0-37.0) g/dL RDW (11.5-15.5) % Plt Count (150-450) k/uL Neutrophils % % Lymphocytes % % Monocytes % % Eosinophils % % Basophils % % Neutrophils # (1.3-7.7) k/uL Lymphocytes # (1.0-4.8) k/uL Monocytes # (0-1.0) k/uL Eosinophils # (0-0.7) k/uL Basophils # (0-0.2) k/uL Sodium (137-145) mmol/L Potassium (3.5-5.1) mmol/L Chloride (98-107) mmol/L Carbon Dioxide (22-30) mmol/L Anion Gap mmol/L BUN (7-17) mg/dL Creatinine (0.52-1.04) mg/dL Est GFR (CKD-EPI)AfAm (>60 ml/min/1.73 sqM) Est GFR (CKD-EPI)NonAf (>60 ml/min/1.73 sqM) Glucose (74-99) mg/dL Plasma Lactic Acid Scott (0.7-2.0) mmol/L Calcium (8.4-10.2) mg/dL Total Bilirubin 0.8 (0.2-1.3) mg/dL Conjugated Bilirubin 0.0 (0.0-0.3) mg/dL Unconjugated Bilirubin 0.7 (0.0-1.1) mg/dL Delta Bilirubin 0.1 (0.0-0.2) mg/dL AST 72 H (14-36) U/L ALT 95 H (4-34) U/L Alkaline Phosphatase 136 H (38-126) U/L Troponin I <0.012 (0.000-0.034) ng/mL Total Protein 8.3 H (6.3-8.2) g/dL Albumin 4.8 (3.5-5.0) g/dL Amylase (30-110) U/L Lipase (23-300) U/L Urine Color Yellow Urine Appearance Clear (Clear) Urine pH 7.5 (5.0-8.0) Ur Specific [place] 1.039 H (1.001-1.035) Urine Protein Negative (Negative) Urine Glucose (UA) Negative (Negative) Urine Ketones Negative (Negative) Urine Blood Negative (Negative) Urine Nitrite Negative (Negative) Urine Bilirubin Negative (Negative) Urine Urobilinogen <2.0 (<2.0) mg/dL Ur Leukocyte Esterase Negative (Negative) Disposition Clinical Impression: Pancreatitis, Transaminitis, Leukocytosis, Steatosis of liver, Intractable pain Disposition: ADMITTED IP TO THIS [facility] Condition: Stable Is patient prescribed a controlled substance at d/c from ED?: No Time of Disposition: 14:06 Decision to Admit Reason: Admit from EC Decision Date: 05/15/19 Decision Time: 14:06
[2019-05-15] MEDS: SODIUM CHLORIDE 0.9% 1,000 ML IV SCH ×2 (14:33→20:25)
[2019-05-15] MEDS ORDERED: hydrALAZINE HCL 20 MG/ML 1 ML VIAL IVP PRN (16:34)
[2019-05-15] MEDS ORDERED: ALBUTEROL INHALER 60 PUFF/8 GM INHALER (BULK) INHALATION PRN (16:43)
[2019-05-15 17:04] LABS: Glucose,Whole Blood 136 mg/dL (75-99)
[2019-05-15] MEDS: INSULIN ASPART (NovoLOG) 100 UNIT/ML VIAL SQ SCH ×2 (17:16→20:24)
[2019-05-15] MEDS: HYDROmorphone 0.5 MG/0.5 ML SYRINGE IVP PRN ×2 (18:15→21:53)
[2019-05-15 19:56] LABS: Glucose,Whole Blood 135 mg/dL (75-99)
[2019-05-15] MEDS: PANTOPRAZOLE 40 MG/10 ML VIAL IVP SCH (20:24)
[2019-05-15] MEDS: SYMBICORT 160-4.5 MCG INHALER INHALATION SCH ×2 (20:51→20:52)
[2019-05-16] MEDS: HYDROmorphone 0.5 MG/0.5 ML SYRINGE IVP PRN ×4 (00:33→12:01)
[2019-05-16] MEDS: SODIUM CHLORIDE 0.9% 1,000 ML IV SCH ×3 (03:41→17:12)
[2019-05-16 07:02] LABS: Glucose,Whole Blood 139 mg/dL (75-99)
[2019-05-16 07:26] LABS: ALT 61 U/L (4-34); AST 46 U/L (14-36); African American GFR (CKD) >90 (>60 ml/min/1.73 sqM); Albumin 3.4 g/dL (3.5-5.0); Alkaline Phosphatase 102 U/L (38-126); Amylase <30 U/L (30-110); Anion Gap 7 mmol/L; Blood Urea Nitrogen 7 mg/dL (7-17); Calcium 8.6 mg/dL (8.4-10.2); Carbon Dioxide 25 mmol/L (22-30); Chloride 106 mmol/L (98-107); Cholesterol 180 mg/dL (<200); Glucose 146 mg/dL (74-99); HDL Cholesterol 39 mg/dL (40-60); LDL Cholesterol,Calculated 116 mg/dL (0-99); Non-African American GFR(CKD) >90 (>60 ml/min/1.73 sqM); Potassium 4.2 mmol/L (3.5-5.1); Sodium 138 mmol/L (137-145); Total Bilirubin 0.8 mg/dL (0.2-1.3); Total Protein 6.2 g/dL (6.3-8.2); Triglycerides 124 mg/dL (<150)
[2019-05-16] MEDS: INSULIN ASPART (NovoLOG) 100 UNIT/ML VIAL SQ SCH ×4 (07:44→21:06)
[2019-05-16] MEDS: PANTOPRAZOLE 40 MG/10 ML VIAL IVP SCH ×2 (07:44→21:18)
[2019-05-16] MEDS: IPRATROPIUM-ALBUTEROL 3 ML NEB INHALATION PRN ×2 (08:41→21:08)
[2019-05-16] MEDS: SYMBICORT 160-4.5 MCG INHALER INHALATION SCH ×2 (08:42→21:08)
[2019-05-16 11:27] LABS: IgG Subclass 2 48.5 mg/dL (169.0-640.0); IgG Subclass 3 33.7 mg/dL (11.0-85.0); IgG Subclass 4 13.7 mg/dL (3.0-175.0)
[2019-05-16 11:52] LABS: Glucose,Whole Blood 116 mg/dL (75-99)
[2019-05-16 13:18] VITALS: BMI 45.7
--- NOTE | 2019-05-16 14:00 | P.HPIM ---
History of Present Illness 63-year-old female was admitted with pancreatitis. Given with Epigastric abdominal pain sharp in nature radiating to the back with nausea and vomiting. Patient is feeling bit better today patient is able to tolerate a full liquid d iet. Although patient is admitted for pancreatitis there is no significant evidence for that life is not elevated computed tomography scan was suspicious for that but I'm not impressed with the after looking at the images. Patient doesn't have any gallstones. Patient may need a HIDA scan. Patient may have had gastritis because of which gastroneurology evaluated the patient patient was started on Protonix. We'll advance her diet today she is feeling better patient will be discharged tomorrow Review of Systems REVIEW OF SYSTEMS: CONSTITUTIONAL: No fever, no malaise, no fatigue. HEENT: No recent visual problems or hearing problems. Denied any sore throat. CARDIOVASCULAR: No chest pain, orthopnea, PND, no palpitations, no syncope. PULMONARY: No shortness of breath, no cough, no hemoptysis. GASTROINTESTINAL: as mentioned in HPI NEUROLOGICAL: No headaches, no weakness, no numbness. HEMATOLOGICAL: Denies any bleeding or petechiae. GENITOURINARY: Denies any burning micturition, frequency, or urgency. MUSCULOSKELETAL/RHEUMATOLOGICAL: Denies any joint pain, swelling, or any muscle pain. ENDOCRINE: Denies any polyuria or polydipsia. The rest of the 14-point review of systems is negative. Past Medical History Past Medical History: Asthma, COPD, Diabetes Mellitus, Eye Disorder, Fibromyalgia, GERD/Reflux, Hyperlipidemia, Hypertension, Osteoarthritis (OA), Pneumonia Additional Past Medical History / Comment(s): Bronchitis, NIDDM type II, neuropathy bilateral calves/feet, IBS, colitis, arthritis in neck/back with chronic pain, DDD, bilateral glaucoma, cataract in L eye, History of Any Multi-Drug Resistant Organisms: None Reported Past Surgical History: Section Additional Past Surgical History / Comment(s): R eye cataract surgery Past Anesthesia/Blood Transfusion Reactions: No Reported Reaction Smoking Status: Former smoker - Past Family History Sister(s) Family Medical History: Cancer Additional Family Medical History / Comment(s): Patient has a total of 6 sisters and all have lung problems such as chronic bronchitis, COPD or asthma, any of diabetes. Breast cancer Brother(s) Additional Family Medical History / Comment(s): The patient is a total of 4 brothers and 2 in a fire. Father Family Medical History: Hyperlipidemia, Hypertension Additional Family Medical History / Comment(s): Pt was adopted. She knows her biological father had a hernia Mother Family Medical History: Diabetes Mellitus Additional Family Medical History / Comment(s): Pt was adopted. Medications and Allergies Home Medications Medication Instructions Recorded Confirmed Type Albuterol Sulfate [Proair Hfa] 1 - 2 puff INHALATION RT-Q4H PRN 11/30/18 05/15/19 History Loratadine [Claritin] 10 mg PO DAILY 11/30/18 05/15/19 History Montelukast [Singulair] 10 mg PO DAILY 11/30/18 05/15/19 History Lisinopril-Hctz 20-12.5 mg 1 each PO DAILY #30 tab 12/05/18 05/15/19 Rx [Zestoretic 20-12.5] Fluticasone/Salmeterol [Airduo 1 puff INHALATION RT-BID 05/15/19 05/15/19 Hi story Respiclick [id number] Mcg] Ipratropium-Albuterol Nebulize 3 ml INHALATION RT-QID PRN 05/15/19 05/15/19 History [Duoneb 0.5 mg-3 mg/3 ml Soln] metFORMIN HCL [Glucophage] 500 mg PO BID 05/15/19 05/15/19 History Allergies Allergy/AdvReac Type Severity Reaction Status Date / Time codeine Allergy Unknown Verified 05/15/19 15:25 Physical Exam Vitals: Vital Signs Temp Pulse Pulse Resp BP BP Pulse Ox 05/16/19 08:57 76 05/16/19 08:44 72 05/16/19 06:00 98.5 F 70 16 113/67 93 L 05/15/19 21:15 99.4 F 85 16 146/74 93 L 05/15/19 15:00 98.6 F 84 16 157/74 95 05/15/19 14:00 95 18 162/92 98 Intake and Output 05/15/19 05/16/19 05/16/19 22:59 06:59 14:59 Intake Total 0 Balance 0 Intake: Oral 0 Other: Voiding Method Toilet Toilet # Voids 2 Weight 113.398 kg 113.398 kg PHYSICAL EXAMINATION: GENERAL: The patient is alert and oriented x3, not in any acute distress. Well developed, well nourished. HEENT: Pupils are round and equally reacting to light. EOMI. No scleral icterus. No conjunctival pallor. Normocephalic, atraumatic. No pharyngeal erythema. No thyromegaly. CARDIOVASCULAR: S1 and S2 present. No murmurs, rubs, or gallops. PULMONARY: Chest is clear to auscultation, no wheezing or crackles. ABDOMEN: Soft, nontender, nondistended, normoactive bowel sounds. No palpable organomegaly. MUSCULOSKELETAL: No joint swelling or deformity. EXTREMITIES: No cyanosis, clubbing, or pedal edema. NEUROLOGICAL: Gross neurological examination did not reveal any focal deficits. SKIN: No rashes. Results CBC & Chem 7: 05/15/19 10:14 05/16/19 06:29 Labs: Abnormal Lab Results - Last 24 Hours (Table) 05/15/19 05/15/19 05/16/19 Range/Units 17:02 19:54 06:29 Glucose (74-99) mg/dL POC Glucose (mg/dL) 136 H 135 H (75-99) mg/dL AST (14-36) U/L ALT (4-34) U/L Total Protein (6.3-8.2) g/dL Albumin (3.5-5.0) g/dL LDL Cholesterol, Calc (0-99) mg/dL HDL Cholesterol (40-60) mg/dL Amylase (30-110) U/L IgG2 48.5 L (169.0-640.0) mg/dL 05/16/19 05/16/19 05/16/19 Range/Units 06:29 07:00 11:49 Glucose 146 H (74-99) mg/dL POC Glucose (mg/dL) 139 H 116 H (75-99) mg/dL AST 46 H (14-36) U/L ALT 61 H (4-34) U/L Total Protein 6.2 L (6.3-8.2) g/dL Albumin 3.4 L (3.5-5.0) g/dL LDL Cholesterol, Calc 116 H (0-99) mg/dL HDL Cholesterol 39 L (40-60) mg/dL Amylase <30 L (30-110) U/L IgG2 (169.0-640.0) mg/dL Thrombosis Risk Factor Assmnt - Choose All That Apply Any of the Below Risk Factors Present?: Yes Each Factor Represents 1 point: Abnormal pulmonary function (COPD), Hx of IBD, Obesity (BMI >25) Other Risk Factors: Yes Each Risk Factor Represents 2 Points: Age 61-74 years Other congenital or acquired thrombophilia - If yes, enter type in comment: No Thrombosis Risk Factor Assessment Total Risk Factor Score: 5 Thrombosis Risk Factor Assessment Level: High Risk Assessment and Plan Plan: -abdominal pain: Possibly of gastritis but suspicion is low for pancreatitis or gallbladder disease or cholecystitis. Gastroenterology evaluated the patient patient will be continued on Protonix we'll advance the diet possibility of discharge tomorrow unless she is getting the head up for GI endoscopy Heparin type 2 diabetes mellitus patient is on sliding scale insulin which will be continued -Hypertension patient will be resumed on lisinopril andhydrochlorothiazide will be held as patient is receiving IV fluids cut down IV fluids to 75 mL/h -COPD without any acute exacerbation patient quit smoking 15 years ago -Fibromyalgia -Hyperlipidemia obesity
[2019-05-16] MEDS: HYDROcodone/APAP 5-325MG 1 EACH TAB PO PRN ×2 (15:59→21:17)
--- NOTE | 2019-05-16 16:02 | P.CONS ---
History of Present Illness - Reason for Consult Consult date: 05/15/19 Pancreatitis Requesting physician: Alicia Rios - Chief Complaint Abdominal pain - History of Present Illness 63-year-old female with a medical history significant for hyperlipidemia, hypertension, osteoarthritis, COPD and fibromyalgia who presented to the hospital with complaints of abdominal pain. The patient reports his sensation of epigastric abdominal pain which she describes as hard lock scrolling into her back. She also has associated abdominal bloating. The symptoms were present for over 1 day prior to presentation. She reports an episode of diarrhea prior to development of her abdominal pain. The patient took Tylenol at home with no help. She also reports increasing heartburn recently. She reports that in the past she has had a colonoscopy over 10 years ago which was essentially normal and she was told that at that time she had irritable bowel syndrome. She states that predominantly she'll loose stools however occasionally she will of c onstipation. She denies any new medications. She reports very occasional use of alcohol. No prior history of cholecystectomy or problems with her gallbladder. Unknown family history is a patient is adopted. She had computed tomography scan on presentation suggestive of possible pancreatitis with hepatic steatosis and hepatomegaly noted. Laboratory evaluation on presentation significant for WBC 13.4, MELANY globin 13.7, platelet count 260,000, total bilirubin 0.8, alkaline phosphatase 136, AST 72 and ALT 95 with amylase 68 and lipase 104. Review of Systems REVIEW OF SYSTEMS: CONSTITUTIONAL: Denies any fevers, chills, weight change or fatigue. CARDIOVASCULAR: Denies any chest pain, palpitations high or low blood pressures RESPIRATORY: Denies any shortness of breath, hemoptysis or cough. GENITOURINARY: No dysuria or hematuria. MUSCULOSKELETAL: No weakness reported. SKIN: Denies any new rashes or lesions, jaundice or pallor. PSYCHIATRIC: Denies any depression or anxiety. NEUROLOGY: Denies headache, denies any new focal deficits. EARS/NOSE/THROAT: No recent hearing change, congestion, nasal discharge or sore throat. EYES: No pain in eyes, discharge or change in vision. GASTROINTESTINAL: As per HPI. Past Medical History Past Medical History: COPD, Diabetes Mellitus, Fibromyalgia, Hyperlipidemia, Hypertension, Pneumonia History of Any Multi-Drug Resistant Organisms: None Reported Past Surgical History: Section Additional Past Surgical History / Comment(s): cataracts surgery Past Anesthesia/Blood Transfusion Reactions: No Reported Reaction Past Psychological History: No Psychological Hx Reported Smoking Status: Former smoker Past Alcohol Use History: None Reported Past Drug Use History: None Reported - Past Family History Sister(s) Family Medical History: Cancer Additional Family Medical History / Comment(s): Patient has a total of 6 sisters and all have lung problems such as chronic bronchitis, COPD or asthma, any of diabetes. Breast cancer Brother(s) Additional Family Medical History / Comment(s): The patient is a total of 4 brothers and 2 in a fire. Father Additional Family Medical History / Comment(s): Both mother and father are with unknown medical issues. Mother Family Medical History: Diabetes Mellitus Additional Family Medical History / Comment(s): Pt was adopted. Medications and Allergies Home Medications Medication Instructions Recorded Confirmed Type Albuterol Sulfate [Proair Hfa] 1 - 2 puff INHALATION RT-Q4H PRN 11/30/18 05/15/19 History Loratadine [Claritin] 10 mg PO DAILY 11/30/18 05/15/19 History Montelukast [Singulair] 10 mg PO DAILY 11/30/18 05/15/19 History Lisinopril-Hctz 20-12.5 mg 1 each PO DAILY #30 tab 12/05/18 05/15/19 Rx [Zestoretic 20-12.5] Fluticasone/Salmeterol [Airduo 1 puff INHALATION RT-BID 05/15/19 05/15/19 History Respiclick [id number] Mcg] Ipratropium-Albuterol Nebulize 3 ml INHALATION RT-QID PRN 05/15/19 05/15/19 Hist ory [Duoneb 0.5 mg-3 mg/3 ml Soln] metFORMIN HCL [Glucophage] 500 mg PO BID 05/15/19 05/15/19 History Allergies Allergy/AdvReac Type Severity Reaction Status Date / Time codeine Allergy Unknown Verified 05/15/19 15:25 Physical Exam Vitals: Vital Signs Temp Pulse Resp BP Pulse Ox 05/15/19 14:00 95 18 162/92 98 05/15/19 13:30 18 05/15/19 12:00 61 18 144/87 97 05/15/19 10:25 98 F 97 20 169/94 98 Intake and Output 05/14/19 05/15/19 05/15/19 22:59 06:59 14:59 Other: Weight 113.398 kg On physical examination, patient appears comfortable in no apparent distress. HEAD: Normocephalic, atraumatic. EYES: No scleral icterus. No conjunctival injection. MOUTH: No lesions, tongue midline. NECK: Trachea midline, no gross abnormalities. CHEST: Clear to auscultation with no wheezing or rhonchi appreciated. HEART: Regular rate and rhythm. ABDOMEN: Soft, mildly tender to palpation. Bowel sounds are positive. No organomegaly. No guarding or rigidity. EXTREMITIES: No pedal edema. SKIN: No rashes, no jaundice. NEUROLOGIC: Alert and oriented x3. No focal deficits. Results CBC & Chem 7: 05/15/19 10:14 05/16/19 06:29 Labs: Abnormal Lab Results - Last 24 Hours (Table) 05/15/19 05/15/19 05/15/19 Range/Units 10:14 10:14 10:14 WBC 13.4 H (3.8-10.6) k/uL MCV 78.2 L (80.0-100.0) fL Neutrophils # 11.8 H (1.3-7.7) k/uL Lymphocytes # 0.9 L (1.0-4.8) k/uL Sodium 134 L (137-145) mmol/L Glucose 171 H (74-99) mg/dL AST 69 H 72 H (14-36) U/L ALT 89 H 95 H (4-34) U/L Alkaline Phosphatase 130 H 136 H (38-126) U/L Total Protein 8.3 H (6.3-8.2) g/dL Ur Specific [place] (1.001-1.035) 05/15/19 Range/Units 13:35 WBC (3.8-10.6) k/uL MCV (80.0-100.0) fL Neutrophils # (1.3-7.7) k/uL Lymphocytes # (1.0-4.8) k/uL Sodium (137-145) mmol/L Glucose (74-99) mg/dL AST (14-36) U/L ALT (4-34) U/L Alkaline Phosphatase (38-126) U/L Total Protein (6.3-8.2) g/dL Ur Specific [place] 1.039 H (1.001-1.035) CT scan - abdomen: report reviewed (Computed tomography scan on presentation suggestive of possible pancreatitis with hepatic steatosis and hepatomegaly noted.) Assessment and Plan (1) Acute pancreatitis Narrative/Plan: 63-year-old female with multiple medical comorbidities presenting with complaints of abdominal pain. Amylase and lipase within normal limits however patient has mildly elevated liver enzymes predominantly in a hepatocellular pattern as well as typical epigastric abdominal pain radiating into her back suggestive of acute uncomplicated pancreatitis. Unknown etiology with the patient denying any new medications, excessive alcohol use, history of cholelithiasis with computed tomography scan of the abdomen significant for hepatomegaly, hepatic steatosis with evidence of acute pancreatitis without any hepatobiliary pathology noted. Current Visit: Yes Status: Acute Code(s): K85.90 - ACUTE PANCREATITIS WITHOUT NECROSIS OR INFECTION, UNSP SNOMED Code(s): 135035599 (2) Steatosis of liver Current Visit: Yes Status: Acute Code(s): K76.0 - FATTY (CHANGE OF) LIVER, NOT ELSEWHERE CLASSIFIED SNOMED Code(s): 472598867 (3) Transaminitis Current Visit: Yes Status: Acute Code(s): R74.0 - NONSPEC ELEV OF LEVELS OF TRANSAMNS & LACTIC ACID DEHYDRGNSE SNOMED Code(s): 424592125 Plan: Supportive care Okay for ice chips, advance to clear liquid diet tomorrow if abdominal pain is improved Continue pain control Continue IV hydration Encourage ambulation Patient will need follow-up after discharge with plan for MRI in 6-8 weeks to rule out pancreatic mass/cyst as etiology of pancreatitis Thank you for allowing us to participate in the care of patient we will continue to follow
--- NOTE | 2019-05-16 16:05 | P.PN ---
Subjective Progress Note Date: 05/16/19 Principal diagnosis: Acute uncomplicated pancreatitis Patient is seen lying in bed reporting that overall abdominal pain is improving. She has tolerated liquids. Passing flatus but no bowel movements reported. Objective - Vital Signs Vital signs: Vital Signs Temp 98.5 F 05/16/19 06:00 Pulse 76 05/16/19 08:57 Resp 16 05/16/19 06:00 BP 113/67 05/16/19 06:00 Pulse Ox 93 L 05/16/19 06:00 Intake & Output 05/15/19 05/16/19 05/16/19 18:59 06:59 18:59 Intake Total 0 Balance 0 Weight 113.398 kg Intake: Oral 0 Other: Voiding Method Toilet # Voids 2 - Exam On physical examination, patient appears comfortable in no apparent distress. HEAD: Normocephalic, atraumatic. EYES: No scleral icterus. No conjunctival injection. MOUTH: No lesions, tongue midline. NECK: Trachea midline, no gross abnormalities. ABDOMEN: Soft, mildly tender to palpation. Bowel sounds are positive. No organomegaly. No guarding or rigidity. EXTREMITIES: No pedal edema. SKIN: No rashes, no jaundice. NEUROLOGIC: Alert and oriented x3. No focal deficits. - Labs CBC & Chem 7: 05/15/19 10:14 05/16/19 06:29 Labs: Abnormal Lab Results - Last 24 Hours (Table) 05/15/19 05/15/19 05/15/19 Range/Units 10:14 13:35 17:02 Glucose (74-99) mg/dL POC Glucose (mg/dL) 136 H (75-99) mg/dL AST 72 H (14-36) U/L ALT 95 H (4-34) U/L Alkaline Phosphatase 136 H (38-126) U/L Total Protein 8.3 H (6.3-8.2) g/dL Albumin (3.5-5.0) g/dL LDL Cholesterol, Calc (0-99) mg/dL HDL Cholesterol (40-60) mg/dL Amylase (30-110) U/L Ur Specific [place] 1.039 H (1.001-1.035) IgG2 (169.0-640.0) mg/dL 05/15/19 05/16/19 05/16/19 Range/Units 19:54 06:29 06:29 Glucose 146 H (74-99) mg/dL POC Glucose (mg/dL) 135 H (75-99) mg/dL AST 46 H (14-36) U/L ALT 61 H (4-34) U/L Alkaline Phosphatase (38-126) U/L Total Protein 6.2 L (6.3-8.2) g/dL Albumin 3.4 L (3.5-5.0) g/dL LDL Cholesterol, Calc 116 H (0-99) mg/dL HDL Cholesterol 39 L (40-60) mg/dL Amylase <30 L (30-110) U/L Ur Specific [place] (1.001-1.035) IgG2 48.5 L (169.0-640.0) mg/dL 05/16/19 05/16/19 Range/Units 07:00 11:49 Glucose (74-99) mg/dL POC Glucose (mg/dL) 139 H 116 H (75-99) mg/dL AST (14-36) U/L ALT (4-34) U/L Alkaline Phosphatase (38-126) U/L Total Protein (6.3-8.2) g/dL Albumin (3.5-5.0) g/dL LDL Cholesterol, Calc (0-99) mg/dL HDL Cholesterol (40-60) mg/dL Amylase (30-110) U/L Ur Specific [place] (1.001-1.035) IgG2 (169.0-640.0) mg/dL Assessment and Plan (1) Acute pancreatitis Narrative/Plan: 63-year-old female with multiple medical comorbidities presenting with complaints of abdominal pain. Amylase and lipase within normal limits however patient has mildly elevated liver enzymes predominantly in a hepatocellular pattern as well as typical epigastric abdominal pain radiating into her back suggestive of acute uncomplicated pancreatitis. Unknown etiology with the patient denying any new medications, excessive alcohol use, history of cholelithiasis with computed tomography scan of the abdomen significant for hepatomegaly, hepatic steatosis with evidence of acute pancreatitis without any hepatobiliary pathology noted. Current Visit: Yes Status: Acute Code(s): K85.90 - ACUTE PANCREATITIS WITHOUT NECROSIS OR INFECTION, UNSP SNOMED Code(s): 251414451 Plan: Supportive care Clear liquid diet, advance as tolerated Continue pain control Continue IV hydration Encourage ambulation Patient will need follow-up after discharge with plan for MRI in 6-8 weeks to rule out pancreatic mass/cyst as etiology of pancreatitis Thank you for allowing us to participate in the care of patient we will continue to follow
[2019-05-16 17:03] LABS: Glucose,Whole Blood 145 mg/dL (75-99)
[2019-05-16] MEDS: HEPARIN SODIUM,PORCINE 5,000 UNIT/ML 1 ML VIAL SQ SCH ×2 (17:11→23:18)
[2019-05-16 20:16] LABS: Glucose,Whole Blood 129 mg/dL (75-99)
[2019-05-16] MEDS: LORATADINE 10 MG TAB PO SCH (21:17)
[2019-05-16] MEDS: metFORMIN 500 MG TAB PO SCH (21:17)
[2019-05-17] MEDS: HYDROcodone/APAP 5-325MG 1 EACH TAB PO PRN ×3 (02:46→12:23)
[2019-05-17] MEDS: SYMBICORT 160-4.5 MCG INHALER INHALATION SCH (07:13)
[2019-05-17] MEDS: IPRATROPIUM-ALBUTEROL 3 ML NEB INHALATION PRN (07:13)
[2019-05-17 07:19] LABS: ALT 64 U/L (4-34); AST 55 U/L (14-36); African American GFR (CKD) >90 (>60 ml/min/1.73 sqM); Albumin 3.3 g/dL (3.5-5.0); Alkaline Phosphatase 108 U/L (38-126); Anion Gap 5 mmol/L; Blood Urea Nitrogen 4 mg/dL (7-17); Calcium 8.7 mg/dL (8.4-10.2); Carbon Dioxide 27 mmol/L (22-30); Chloride 106 mmol/L (98-107); Glucose 131 mg/dL (74-99); Non-African American GFR(CKD) >90 (>60 ml/min/1.73 sqM); Sodium 138 mmol/L (137-145); Total Bilirubin 0.6 mg/dL (0.2-1.3); Total Protein 6.1 g/dL (6.3-8.2)
[2019-05-17 07:20] LABS: Glucose,Whole Blood 122 mg/dL (75-99)
[2019-05-17] MEDS: INSULIN ASPART (NovoLOG) 100 UNIT/ML VIAL SQ SCH ×2 (08:11→12:08)
[2019-05-17] MEDS: LORATADINE 10 MG TAB PO SCH (08:16)
[2019-05-17] MEDS: PANTOPRAZOLE 40 MG/10 ML VIAL IVP SCH (08:16)
[2019-05-17] MEDS: metFORMIN 500 MG TAB PO SCH (08:16)
[2019-05-17] MEDS: HEPARIN SODIUM,PORCINE 5,000 UNIT/ML 1 ML VIAL SQ SCH (08:16)
[2019-05-17] MEDS: SODIUM CHLORIDE 0.9% 1,000 ML IV SCH (08:17)
[2019-05-17] MEDS ORDERED: LISINOPRIL-HCTZ 20-12.5 MG 1 EACH TAB PO SCH (09:00)
[2019-05-17] MEDS ORDERED: MONTELUKAST 10 MG TAB PO SCH (09:00)
[2019-05-17] MEDS ORDERED: LISINOPRIL 20 MG TAB PO SCH (09:00)
[2019-05-17 11:50] LABS: Glucose,Whole Blood 123 mg/dL (75-99)
[2019-05-17 12:39] VITALS: BP 125/65; PULSE 74; RESP 17; TEMP 98.1
--- NOTE | 2019-05-17 14:37 | P.DS ---
Providers Date of admission: 05/15/19 14:01 Attending physician: Alicia Rios Consults: 05/15/19 14:06 Consult Physician Routine Consulting Provider: Yasmani Pompa Consult Reason/Comments: CT evidence of pancreatic inflammation/intractable pain Do you want consulting provider notified?: Yes Primary care physician: Mario Tyson [facility] Course: 63-year-old female was admitted with pancreatitis. Given with Epigastric abdominal pain sharp in nature radiating to the back with nausea and vomiting. Patient is feeling bit better today patient is able to tolerate a full liquid diet. Although patient is admitted for pancreatitis there is no significant evidence for that life is not elevated computed tomography scan was suspicious for that but I'm not impressed with the after looking at the images. Patient doesn't have any gallstones. Patient may need a HIDA scan. Patient may have had gastritis because of which gastroneurology evaluated the patient patient was started on Protonix. We'll advance her diet today she is feeling better patient will be discharged tomorrow. 05/17/2019 Patient is able to tolerate diet. I do not believe patient has pancreatitis may or may not have gastritis patient does have fatty liver from alcohol. 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 PHYSICAL EXAMINATION: GENERAL: The patient is alert and oriented x3, not in any acute distress. obese CARDIOVASCULAR: S1 and S2 present. No murmurs, rubs, or gallops. PULMONARY: Chest is clear to auscultation, no wheezing or crackles. ABDOMEN: Soft, nontender, nondistended, normoactive bowel sounds. No palpable organomegaly. MUSCULOSKELETAL: No joint swelling or deformity. EXTREMITIES: No cyanosis, clubbing, or pedal edema. SKIN: No rashes. Assessment and Plan Plan: -abdominal pain: Possibly of gastritis but suspicion is low for pancreatitis or gallbladder disease or cholecystitis. patient will be discharged on Prilosec. Patient is clearly exhibiting opiate seeking behavior -Steatohepatitis: Alcoholic fatty liver -type 2 diabetes mellitus -Hypertension -COPD without any acute exacerbation patient quit smoking 15 years ago -Fibromyalgia -Hyperlipidemia obesity Patient Condition at Discharge: Stable Plan - Discharge Summary Discharge Rx Participant: No New Discharge Prescriptions: New Omeprazole [PriLOSEC] 40 mg PO AC-BRKFST #30 capsule. No Action Albuterol Sulfate [Proair Hfa] 1 - 2 puff INHALATION RT-Q4H PRN PRN Reason: Shortness Of Breath Loratadine [Claritin] 10 mg PO DAILY Montelukast [Singulair] 10 mg PO DAILY Lisinopril-Hctz 20-12.5 mg [Zestoretic 20-12.5] 1 each PO DAILY #30 tab metFORMIN HCL [Glucophage] 500 mg PO BID Fluticasone/Salmeterol [Airduo Respiclick 232-14 Mcg] 1 puff INHALATION RT- BID Ipratropium-Albuterol Nebulize [Duoneb 0.5 mg-3 mg/3 ml Soln] 3 ml INHALATION RT-QID PRN PRN Reason: Shortness Of Breath Discharge Medication List Albuterol Sulfate [Proair Hfa] 1 - 2 puff INHALATION RT-Q4H PRN 11/30/18 [History] Loratadine [Claritin] 10 mg PO DAILY 11/30/18 [History] Montelukast [Singulair] 10 mg PO DAILY 11/30/18 [History] Lisinopril-Hctz 20-12.5 mg [Zestoretic 20-12.5] 1 each PO DAILY #30 tab 12/05/18 [Rx] Fluticasone/Salmeterol [Airduo Respiclick 232-14 Mcg] 1 puff INHALATION RT-BID 05/15/19 [History] Ipratropium-Albuterol Nebulize [Duoneb 0.5 mg-3 mg/3 ml Soln] 3 ml INHALATION RT-QID PRN 05/15/19 [History] metFORMIN HCL [Glucophage] 500 mg PO BID 05/15/19 [History] Omeprazole [PriLOSEC] 40 mg PO AC-BRKFST #30 capsule. 05/17/19 [Rx] Follow up Appointment(s)/Referral(s): Mario Tyson MD [Primary Care Provider] - 05/19/19 2:15 pm Yasmani Pompa MD [STAFF PHYSICIAN] - 1 Week Discharge Disposition: HOME SELF-CARE
--- NOTE | 2019-05-17 18:08 | P.PN ---
Subjective Progress Note Date: 05/17/19 Principal diagnosis: Acute uncomplicated pancreatitis Patient is seen lying in bed reporting that overall abdominal pain is improving. Diet was advanced today and the patient tolerated it. Overall feeling better. Objective - Vital Signs Vital signs: Vital Signs Temp 97.3 F L 05/17/19 05:35 Pulse 76 05/17/19 07:27 Resp 16 05/17/19 05:35 BP 122/65 05/17/19 05:35 Pulse Ox 95 05/17/19 05:35 Intake & Output 05/16/19 05/17/19 05/17/19 18:59 06:59 18:59 Intake Total 600 225 240 Balance 600 225 240 Weight 113.398 kg Intake: Intake, IV Titration 600 225 Amount Sodium Chloride 0.9% 1, 600 225 000 ml @ 75 mls/hr IV . Q15C20P [facility] Rx#:[id number] Oral 240 Other: Voiding Method Toilet # Voids 1 2 - Exam On physical examination, patient appears comfortable in no apparent distress. HEAD: Normocephalic, atraumatic. EYES: No scleral icterus. No conjunctival injection. MOUTH: No lesions, tongue midline. NECK: Trachea midline, no gross abnormalities. ABDOMEN: Soft, mildly tender to palpation. Bowel sounds are positive. No organomegaly. No guarding or rigidity. EXTREMITIES: No pedal edema. SKIN: No rashes, no jaundice. NEUROLOGIC: Alert and oriented x3. No focal deficits. - Labs CBC & Chem 7: 05/15/19 10:14 05/17/19 06:20 Labs: Abnormal Lab Results - Last 24 Hours (Table) 05/16/19 05/16/19 05/16/19 Range/Units 06:29 11:49 17:02 BUN (7-17) mg/dL Glucose (74-99) mg/dL POC Glucose (mg/dL) 116 H 145 H (75-99) mg/dL AST (14-36) U/L ALT (4-34) U/L Total Protein (6.3-8.2) g/dL Albumin (3.5-5.0) g/dL IgG2 48.5 L (169.0-640.0) mg/dL 05/16/19 05/17/19 05/17/19 Range/Units 20:14 06:20 07:19 BUN 4 L (7-17) mg/dL Glucose 131 H (74-99) mg/dL POC Glucose (mg/dL) 129 H 122 H (75-99) mg/dL AST 55 H (14-36) U/L ALT 64 H (4-34) U/L Total Protein 6.1 L (6.3-8.2) g/dL Albumin 3.3 L (3.5-5.0) g/dL IgG2 (169.0-640.0) mg/dL Assessment and Plan (1) Acute pancreatitis Narrative/Plan: 63-year-old female with multiple medical comorbidities presenting with complaints of abdominal pain. Amylase and lipase within normal limits however patient has mildly elevated liver enzymes predominantly in a hepatocellular pattern as well as typical epigastric abdominal pain radiating into her back suggestive of acute uncomplicated pancreatitis. Unknown etiology with the patient denying any new medications, excessive alcohol use, history of cholelithiasis with computed tomography scan of the abdomen significant for hepatomegaly, hepatic steatosis with evidence of acute pancreatitis without any hepatobiliary pathology noted. Status: Acute Code(s): K85.90 - ACUTE PANCREATITIS WITHOUT NECROSIS OR INFECTION, UNSP SNOMED Code(s): 450237355 Plan: Supportive care Okay for diet as tolerated Continue pain control Continue IV hydration Encourage ambulation Patient will need follow-up after discharge with plan for MRI in 6-8 weeks to rule out pancreatic mass/cyst as etiology of pancreatitis Thank you for allowing us to participate in the care of patient we will continue to follow
== END 2019-05-17 14:13 | disposition home or self-care (01) ==
LOC: EC 10:23 → INTOOBSV 14:01 → 6NMEDSUR 14:01 → UNDODISIN 05-17 14:13
PROVIDERS: ADMIT Internal Medicine; ATTEND Internal Medicine
DX: K70.0 Alcoholic fatty liver (principal); D72.829 Elevated white blood cell count, unspecified; Z76.5 Malingerer [conscious simulation]; E11.42 Type 2 diabetes mellitus with diabetic polyneuropathy; E11.36 Type 2 diabetes mellitus with diabetic cataract; I10 Essential (primary) hypertension; J44.9 Chronic obstructive pulmonary disease, unspecified; M79.7 Fibromyalgia; E78.5 Hyperlipidemia, unspecified; K21.9 Gastro-esophageal reflux disease without esophagitis; M19.90 Unspecified osteoarthritis, unspecified site; K58.0 Irritable bowel syndrome with diarrhea; M47.892 Other spondylosis, cervical region; M47.899 Other spondylosis, site unspecified; M51.9 Unspecified thoracic, thoracolumbar and lumbosacral intervertebral disc disorder; H26.9 Unspecified cataract; E66.9 Obesity, unspecified; Z68.42 Body mass index [BMI] 45.0-49.9, adult; Z87.891 Personal history of nicotine dependence; Z79.899 Other long term (current) drug therapy; Z79.52 Long term (current) use of systemic steroids; Z79.84 Long term (current) use of oral hypoglycemic drugs; Z88.5 Allergy status to narcotic agent; Z87.01 Personal history of pneumonia (recurrent); Z98.890 Other specified postprocedural states; Z98.41 Cataract extraction status, right eye; Z87.09 Personal history of other diseases of the respiratory system; Z87.19 Personal history of other diseases of the digestive system; Z80.3 Family history of malignant neoplasm of breast; Z82.5 Family history of asthma and other chronic lower respiratory diseases; Z83.3 Family history of diabetes mellitus; Z83.438 Family history of other disorder of lipoprotein metabolism and other lipidemia; Z82.49 Family history of ischemic heart disease and other diseases of the circulatory system; Z83.79 Family history of other diseases of the digestive system
CPT/HCPCS: 96376 ×3; 96361; 96372 ×2; 96375 ×2; 96374; 99285; 36415; 94640 ×5; 80061; 80053 ×3; 82150 ×2; 83605; 83690 ×2; 84484; 85025; 81003; 82787; 74018; 76705; 74177; G0378 ×3; J1644 ×2; J2405 ×2; C9113 ×3; J1170 ×2; Q9967; 80076

== ENCOUNTER 2021-06-28 10:12 | Inpatient (IN) | payer MEDICARE, OTHER ==
--- NOTE | 2021-06-26 08:32 | P.HPOR ---
History of Present Illness H&P Date: 06/22/21 Chief Complaint: Low back pain, LE weakness, LE radiculopathy Date of :[birth year] Age: 65 year Height: 5'2" Weight: 162 lbs BMI: 29.63 kg/m2 Occupation: Retired VAS: 5 CHIEF COMPLAINT: Lumbar pain HISTORY: Xrays No new xrays taken in office Trauma or injury No Work-Related No Pain description sharp. Location posterior Activity Modification yes , unable to stand or weightbear for extended periods of time. Hand Dominance right DOI: Chronic. DOS: None. TREATMENTS COMPLETED: 6 weeks of PT completed? Yes How many visits: 12 Did it help? No Physician directed home exercise completed? yes , without improvements. Medications yes List: Pregabalin, Flexeril, Robaxin all without improvement Alternative interventions Chiropractic: yes , without improvements. Massage therapy: No Brace: No Injections No RFA: No SUBJECTIVE: Patient returns to the office for a pre-op review of the planned L5-S1 MITLIF. Since the time of the last appointment the patient reports that her symptoms have continued to persist. She reports that she is having continued, severe posterior lumbar pain with left lower extremity numbness/tingling and weakness which is severely impacting her daily function. She has failed all conservative modalities trialed at this time and is ready to proceed with the planned procedure. Patient continues to deny any bladder or bowel retention/incontinence, no perineal numbness/tingling, and ambulates with the use of a cane. HPI: Patient last presented to the office on 05/29/2021 for a recheck of her lumbar spine. Since the time of the last appointment the patient reports that her symptoms have continued to persist. She reports that she has failed to improve with all conservative modalities trialed thus far. She reports continued dysfunction and cannot complete most of her daily functions due to the severity of her symptoms. She continues to any bladder or bowel retention/incontinence, no perineal numbness/tingling, and ambulates independently but her ability to ambulate is greatly reduced. Ms. Sun previously presented on 05/26/2021 via phone call to review her MR Alexandre that could not be reviewed at the time of the appointment. Since the time of her last appointment she denies any improvements to her symptoms. Overall she reports continued disability and cannot complete most of her daily functions due to pain. She continues to any bladder or bowel retention/incontinence, no perineal numbness/tingling, and ambulates independently but her ability to ambulate is greatly reduced. Ms. Sun was last seen on regarding her lumbar spine. She reports that her symptoms have been ongoing for several years that have progressively worsened over the last month with no known injury or trauma to indicate an exact onset. regarding her symptoms she reports posterior lumbar pain that radiates into the left buttock and lower extremity. With this she does also report numbness and tingling, along with significant weakness regarding plantar/dorsiflexion of the foot. Due to this she is having significant issues with her gait, noting that she trips alot and has been falling with increased frequency. In addition to this she does report increased groin pain as well. Her symptoms are exacerbated with prolonged standing and ambulation, noting that she is now unable o complete most of her daily tasks. Patient also reports sleep disturbances as well. As far as treatments, the patient has previously trialed PT and a physician directed HEP without any relief of her symptoms. Additionally, she does take Pregabalin, Flexeril, and Robaxin all without relief. Otherwise she has done chiropractics in the past, denying any improvements. Patient denies any bladder or bowel retention/incontinence, no perineal numbness/tingling, and ambulates independently but her ability to ambulate is greatly reduced. The patients' past social, medical, family, surgical history, as well as review of systems, have been reviewed. Please refer to the Neurosurgery History and Physical form that has been scanned in to our electronic medical record system. 14 points review of systems completed and as stated in HPI, all other systems reviewed are negative. Review of Systems 14 points review of systems completed and as stated in HPI, all other systems reviewed are negative. Past Medical History Past Medical History: COPD, Diabetes Mellitus, Fibromyalgia, Hyperlipidemia, Hypertension, Pneumonia Additional Past Medical History / Comment(s): Bronchitis, NIDDM type II, neuropathy bilateral calves/feet, IBS, colitis, arthritis in neck/back with chronic pain, DDD, bilateral glaucoma, cataract in L eye, History of Any Multi-Drug Resistant Organisms: None Reported Past Surgical History: Section Additional Past Surgical History / Comment(s): cataracts surgery Past Anesthesia/Blood Transfusion Reactions: No Reported Reaction Past Psychological History: No Psychological Hx Reported Past Alcohol Use History: None Reported Past Drug Use History: None Reported - Past Family History Sister(s) Family Medical History: Cancer Additional Family Medical History / Comment(s): Patient has a total of 6 sisters and all have lung problems such as chronic bronchitis, COPD or asthma, any of diabetes. Breast cancer Brother(s) Additional Family Medical History / Comment(s): The patient is a total of 4 brothers and 2 in a fire. Father Family Medical History: Hyperlipidemia, Hypertension Additional Family Medical History / Comment(s): Both mother and father are with unknown medical issues. Mother Family Medical History: Diabetes Mellitus Additional Family Medical History / Comment(s): Pt was adopted. Medications and Allergies Home Medications Medication Instructions Recorded Confirmed Type Albuterol Sulfate [Proair Hfa] 1 - 2 puff INHALATION RT-Q4H PRN 11/30/18 05/15/19 History Loratadine [Claritin] 10 mg PO DAILY 11/30/18 05/15/19 History Montelukast [Singulair] 10 mg PO DAILY 11/30/18 05/15/19 History Lisinopril-Hctz 20-12.5 mg 1 each PO DAILY #30 tab 12/05/18 05/15/19 Rx [Zestoretic 20-12.5] Fluticasone/Salmeterol [Airduo 1 puff INHALATION RT-BID 05/15/19 05/15/19 History Respiclick [id number] Mcg] Ipratropium-Albuterol Nebulize 3 ml INHALATION RT-QID PRN 05/15/19 05/15/19 History [Duoneb 0.5 mg-3 mg/3 ml Soln] metFORMIN HCL [Glucophage] 500 mg PO BID 05/15/19 05/15/19 History Omeprazole [PriLOSEC] 40 mg PO JONES-LOLAFSTenzin #30 capsule. 05/17/19 Rx Allergies Allergy/AdvReac Type Severity Reaction Status Date / Time codeine Allergy Unknown Verified 05/15/19 15:25 Physical Examination Osteopathic Statement: *. No significant issues noted on an osteopathic structural exam other than those noted in the History and Physical/Consult. PHYSICAL EXAMINATION: General: Awake, alert, appropriate for age, in no acute distress. HEENT: No unusual neck masses around region of lateral neck triangle, thyroid, supraclavicular groove Heart: Regular rate and rhythm, normal S1, S2 and no murmur/gallop. Lungs: Clear to auscultation bilaterally with no use of accessory muscles. Extremities: Skin warm and dry without acute lesions, coloration, temperature, skin intact, no tenderness or erythema Integument: Hairy patches: Absent Dorsal skin dimples: Absent Cafe au lait spots: Absent Surgical incisions: No Palpation: Please see Pain drawing on Intake sheet for further detail. Midline spinal tenderness: Yes, diffuse through lumbar E6 Paralumbar tenderness: Yes, diffuse through lumbar Parathoracic tenderness: No E6 Buttocks tenderness: No E6 Special findings: No POSTURAL and MUSCULO-SKELETAL EVALUATION: Coronal Balance: NEUTRAL Recumbent testing: Patient is able to lay flat on back Sagittal Balance: NEUTRAL Shoulder Profile: LEVEL Pelvic Girdle: LEVEL Neck ROM: UNRESTRICTED Lumbar ROM: RESTRICTED Shoulder ROM: Symmetrical Hip ROM: Symmetrical Knee ROM: Symmetrical Hands: Normal appearance, symmetrical Feet: Normal appearance, Symmetrical VASCULAR STATUS : LEFT RIGHT Wrist Pulses INTACT INTACT Pedal Pulses (Dors. pedis & post.tibialis) INTACT INTACT Color NORMAL NORMAL Edema Absent Absent NEUROLOGIC EXAMINATION: Mental Status:Awake and alert, fully oriented, with normal attention, concentration and memory, and fluent, appropriate speech. Cranial Nerves: I: Olfactory not tested. II: Visual acuity normal, no visual field deficit noted with confrontation. III,IV: Normal pupillary reflexes & intact extraocular movements without nystagmus. V,: Intact symmetrical facial sensation. VII: Intact symmetrical facial motor movement VIII: Hearing intact. IX,X: Intact gag, swallow, & normal voice. XI: Sternocleidomastoid, trapezius function intact. XII: Tongue midline with normal movements. L'hermitte's Sign: Negative / absent Spurling'Sign: Absent bilaterally. Cubital percussion test: Absent bilaterally. Duque-Tinel sign - Carpal region: Absent bilaterally. Straight Leg Raising: Absent bilaterally. Crossed straight leg raise: negative MOTOR EXAM (0-5/5, N/T) STRENGTH RIGHT LEFT Shoulder Abd (not part of the STEVE score) 5 5 Elbow Flexors 5 5 Elbow Extensor 5 5 Wrist Dorsiflexors 5 5 Finger Abductor 5 5 Inspector Purchased Parts 5 5 Hip Flexor (Not part of STEVE Motor score) 5 5 Knee Flexor 5 5 Knee Extensor 5 5 Ankle dorsiflexor 5 4 Ankle plantarflexion 5 4 Extensor hallucis 5 4+ Patient is demonstrating cauda symptomology about the left lower extremity. REFLEXES(0-4/2, NT) RIGHT LEFT Upper Extremities 2 2 Lower Extremities 2 2 Pathological Reflexes RIGHT LEFT Duque's Absent Absent Clonus Absent Absent Babinski Absent Absent # Indicates mechanical impairment Muscle appearance: Symmetrical, without signs of atrophy or dystrophy. Sensory system (0-4, N/T) Test type RU PREET RL LL Joint-Position 2 2 2 2 Vibration 2 2 2 2 Pain & LT sense 2 2 2 2 Dermatomal Deficit: None None None None Gait and Functional Evaluation: Ambulatory aids: Independent Romberg's test: Intact bilaterally Toe heel walk / heel-toe walk intact while maintaining satisfactory balance? No Squatting/straightening w/o assistance to a min of 60 degree knee flexion? No Single leg stance: not intact bilaterally but worse on the left side Trendelenburg sign negative bilaterally Hand and finger dexterity intact bilaterally? yes Disdiadochokinesis examination negative bilaterally? yes Positive dropfoot on the left side. Results RADIOGRAPHIC STUDIES: XRay taken on 05/25/21 of Lumbar Spine and Pelvis: spondylosis noted at L5-S1 with complete disc desiccation. There is a stable grade 1 spondylolisthesis L4-L5. There is facet arthrosis no fracture dislocations otherwise noted overall alignment is fairly well maintained. AP pelvis level pelvis no fracture Outside MRI lumbar spine without contrast to 04/29/2021: This is reviewed and demonstrates a large central paracentral and foraminal disc herniation at L5-S1 which is eccentric to the left hand side but does cause central stenosis as well. There is severe disc desiccation and disc height loss L5-S1 secondary to a large disc herniation in this area this causes encroachment on the L5 and S1 nerve roots mainly on the left-hand side however does affect the right-hand side appears as well. there is facet hypertrophy and overgrowth as well as ligamental overgrowth at this level as well. There is a subtle grade 1 spondylolisthesis L4 on [id number] is only marginally mobile on flexion extension films in comparison to this supine film. No other fracture dislocation or lesion is otherwise noted. There is minor disc bulging noted at L3-L4 which causes mild central stenosis no foraminal stenosis. Assessment and Plan Assessment: It was my pleasure to have seen and examined Jojo. I reviewed the patient's clinical syndrome, physical findings, and imaging studies during the appointment today. It is my impression that the patient has a diagnosis of. 1. L5-S1 large herniated nucleus pulposus 2. L5-S1 severe central and foraminal stenosis 3. Left lower extremity radiculopathy 4. Left lower extremity weakness with foot drop I outlined the natural course history without intervention and various interventional options Plan: Based on my findings I suggest the following course of action: 1. The nature of the disorder and treatment options were discussed with the patient.Based on the severity of her symptoms as well as her pathology I discussed treatment options with the patient, including operative options, and they have elected to proceed with the following surgical procedure: L5-S1 decompression and fusion MIS approach The indications, risks, benefits, and alternatives to surgery were discussed with the patient and family at length. Specifically (but not limited to) the risks of infection, stiffness, recurrence of symptoms, need for revision surgery, local numbness, neurovascular injury, and blood clots were discussed. The patient's questions were answered. The decision to proceed was made. Consent will be obtained for the procedure. 2. Spine Surgery Risk Review Jojo Sun is presenting for evaluation of low back pain. It was my pleasure to have seen and examined Jojo Sun. In our visit today we have had a chance to go over subjective complaints, physical examination findings and treatments including the natural course history without intervention and various interventional options. The patients imaging demonstrates Xrays: spondylosis noted at L5-S1 with complete disc desiccation. There is a stable grade 1 spondylolisthesis L4-L5. There is facet arthrosis no fracture dislocations otherwise noted overall alignment is fairly well maintained. AP pelvis level pelvis no fracture. MRI: This is reviewed and demonstrates a large central paracentral and foraminal disc herniation at L5-S1 which is eccentric to the left hand side but does cause central stenosis as well. There is severe disc desiccation and disc height loss L5-S1 secondary to a large disc herniation in this area this causes encroachment on the L5 and S1 nerve roots mainly on the left-hand side however does affect the right-hand side appears as well. there is facet hypertrophy and overgrowth as well as ligamental overgrowth at this level as well. There is a subtle grade 1 spondylolisthesis L4 on [id number] is only marginally mobile on flexion extension films in comparison to this supine film. No other fracture dislocation or lesion is otherwise noted. There is minor disc bulging noted at L3-L4 which causes mild central stenosis no foraminal stenosis. On physical exam, Jojo Sun demonstrates diffuse tenderness both midline an paraspinal throughout the lumbar region. Patient also demonstrates weakness upon testing with the left lower extremity as well as cauda symptomology. I have explained to the patient that as their condition progresses it will cause further neurological deficits and eventual paralysis. Based on the patients imaging, physical exam, and the rapid progression and disabling nature of their symptoms, at this time I recommend surgery in the form or a: L5-S1 decompression and fusion MIS approach. I discussed the risk and benefits of this procedure at length with Jojo Sun. The patient and her spouse agreed to considered pursuing the procedure abovementioned. Prior to surgery, she should follow up with her PCP (Cardio, ID, IM etc) for clearance. Questions were invited and answered, and the patient wishes to proceed as outlined below. Currently, I am recommendin.L5-S1 decompression and fusion MIS approach 2.Follow up with PCP for surgical clearance 3.Review of surgical risks and benefits as well as an educational packet on t he proposed surgical procedure. Risks: All surgical procedures come with inherent risks, including those related to positioning, anesthesia, intraoperative findings, and postoperative complications. It is important to understand that surgery does not come with any guarantee of a successful outcome as complications and adverse events are always possible. The patient was given a handout in office today discussing the surgical procedure and risks associated with the intervention, both of which were discussed with the patient. These risks include but are not limited to the following: * Experiencing same, different or even worse symptoms in back, neck, arms, or legs compared to before surgery. Requiring further surgery or other forms of treatment presently or at some time in the future at same or other levels of the intended spine surgery. On an extreme but fortunately relatively rare basis severe complication such as blindness, stroke, heart attack, temporary and/or permanent nerve injury, paralysis, coma, or may occur, sometimes without known explanation. Surgical complications may include but are not limited to risk of infection, fluid accumulation in the surgical dissection site, including a seroma or hematoma, that requires additional surgery, wound drainage, bleeding, new numbness or weakness, vision changes/loss, spinal fluid leakage, non-healing and/or infected incision, headaches, difficulty or inability to swallow, hoarseness, hemopneumothorax, pneumothorax, impotence, retrograde ejaculation, vaginal dryness; injury to nerves, spinal cord, blood vessels, lymphatics or other vital organs (i.e., bowel injury, injury to the great vessels); heterotopic bone formation; complications related to the hardware such as screws, rods, cages including misplaced hardware, device failure, instrumentation at the wrong spine level, hardware fracture/breakage, or hardware loosening; vertebral failure of the spinal column above or below the newly placed hardware; retained surgical instrumentations or devices and the need for further surgery. * Medical risks of the planned spine surgery include but are not limited to generalized Infections to the whole body or local areas outside of the surgical site (sepsis), heart attack, bleeding, anaphylaxis, meningitis, seizure, epilepsy, hearing loss, burn bland, laceration of the head or other areas of the body, bruising, hypersensitivity of the skin, bladder over distension; allergic reaction; shoulder injury related to positioning; fat, blood and air clots to other areas of the body like heart, lungs, brain; failure of internal organs such as lungs, kidneys, liver and excessive bleeding. If blood transfusions are necessary, note that transfusions may cause intolerance reactions such as anaphylaxis or other complex reactions. Despite best efforts, the results of spine surgery might not heal in terms of bone, soft tissues such as skin, fascia, ligaments, and joints. Additionally, in order to achieve best possible results, spine surgery may be carried out beyond the initially planned levels and involve decompression, fusion including insertion of hardware at levels other than the original intended area of surgical interest change some portions of the procedure in order to ensure the best possible outcomes. With spine surgery and spinal fusion, there are different off label uses of instrumentation (devices, implants and hardware) as well as biological substances (bone morphogenic proteins, demineralized bone matrix) as well as using extra bone from allograft sources (i.e. cadaver bone) or autograft (iliac crest bone, ribs, or the spine itself). The patient has been given information about these practices and their inherent risks and benefits. [facility] is an educational center that serves as a training facility for neurosurgical and orthopedic [employer] and Nursing students. Physician assistants are medically trained surgical providers who function in the outpatient, inpatient, and operating room setting under the direct supervision of the attending surgeon. [facility] has multiple operating rooms with single and overlapping rooms running daily. They currently function under the required guidelines as produced by the [facility] [employer] [facility] with regards to the overlapping rooms and will continue to comply with changes to this policy as they occur. The requirements include and are complied with as follows: (1) the critical portions of the overlapping rooms will not occur at the same time, (2) the attending physician will be physically present during the critical portions of the procedure and immediately available during the entire case, and (3) a back-up attending is designated should the primary attending not be immediately available. The patient has had a chance to review all the listed information, has been given print outs detailing this information, and has had all his/her questions answered to their satisfaction. It was my pleasure to have seen and examined Jojo Sun. In our visit today we have had a chance to go over my understanding of our patient's current condition, the natural course history without intervention and various interventional options. Questions were invited and answered, and the patient wishes to proceed as outlined above. I have seen and examined the patient for 25 minutes and we have spent more than 50% of the time in repeat and detailed counseling about the patient's condition, its natural course history with out and as much as can be predicted with surgery and re-review of various surgical treatment options. In conclusion, Jojo Sun and her spouse requested we proceed with the above suggested surgery and are willing to accept risks and limitations of the suggested surgery as nature of the disease process and our best attempts at treatment for the condition. Thank you again for allowing us to be part of your patient's care. Please don't hesitate to contact me if you have any further questions. Signed and authenticated by: [employer] P:\\\\ppart\\\\Files\\\\[id number].PNG \\d [facility] [address] [place] [address]
[2021-06-26 15:19] VITALS: BMI 29.1
[~2021-06-28 10:12] MED LIST: ACETAMINOPHEN TAB 500 MG TAB PO PRN; DEXAMETHASONE SOD PHOSPHATE 4 MG/ML 1 ML VIAL IV ONE; GABAPENTIN 300 MG CAP PO PRN; LIDOCAINE 1% (10MG/ML) FOR IV START INTRADERMA PRN; MIDAZOLAM 2 MG/2 ML VIAL IV PRN; ONDANSETRON 4 MG/2 ML VIAL IVP ONE; ONDANSETRON 4 MG/2 ML VIAL IVP PRN; TRANEXAMIC ACID IN NACL,ISO-OS 1,000 MG in SALINE 1 100ML.BAG IVPB PRN
[2021-06-28] MEDS: LACTATED RINGERS 1,000 ML IV SCH (11:08)
[2021-06-28 11:29] LABS: Glucose,Whole Blood 90 mg/dL (75-99)
[2021-06-28] MEDS ORDERED: MIDAZOLAM 2 MG/2 ML VIAL IVP ONE (11:39)
[2021-06-28] MEDS ORDERED: PROPOFOL 10 MG/ML 20 ML VIAL IV ONE (12:54)
[2021-06-28] MEDS ORDERED: SUCCINYLCHOLINE CHLORIDE 100 MG/5 ML SYR IV ONE (12:54)
[2021-06-28] MEDS ORDERED: TRANEXAMIC ACID IN NACL,ISO-OS 1,000 MG/100 ML BAG ONE (12:54)
[2021-06-28] MEDS ORDERED: LIDOCAINE 1% INJ 10MG/ML (20 ML MDV) ONE (12:54)
[2021-06-28] MEDS ORDERED: ePHEDrine 50 MG/ML 1 ML VIAL ONE (12:54)
[2021-06-28] MEDS ORDERED: PHENYLEPHRINE-0.9% NACL SYG 1,000 MCG/10 ML SYRINGE ONE (12:54)
[2021-06-28] MEDS ORDERED: HYDROmorphone (PF) 1 MG/ML ONE (12:54)
[2021-06-28] MEDS ORDERED: fentaNYL (PF) 50 MCG/ML 2 ML AMP ONE (12:54)
[2021-06-28] MEDS ORDERED: KETAMINE 10 MG/ML 20 ML VIAL ONE (12:54)
[2021-06-28] MEDS ORDERED: MIDAZOLAM 2 MG/2 ML VIAL ONE (12:54)
[2021-06-28] MEDS ORDERED: LACTATED RINGERS 1,000 ML IV ONE (13:27)
[2021-06-28] MEDS ORDERED: VANCOMYCIN 1,000 MG VIAL MISCELLANE ONE ×2 (13:35→15:30)
[2021-06-28] MEDS ORDERED: BUPIVACAINE (PF) 0.25% 30 ML VIAL SQ ONE (13:35)
[2021-06-28] MEDS ORDERED: GELATIN SPONGE,ABSORB (SMALL) 1 EACH SPONGE TOPICAL ONE (13:35)
[2021-06-28] MEDS ORDERED: THROMBIN (BOVINE) 5,000 UNIT VIAL TOPICAL ONE (13:37)
[2021-06-28] MEDS ORDERED: HYDROcodone/APAP 5-325MG 1 EACH TAB PO PRN (15:59)
[2021-06-28] MEDS ORDERED: MAGNESIUM HYDROXIDE 2,400 MG/10 ML CUP PO PRN (15:59)
[2021-06-28] MEDS ORDERED: SENNOSIDES-DOCUSATE SODIUM 1 EACH TAB PO PRN (15:59)
[2021-06-28] MEDS ORDERED: CYCLOBENZAPRINE 5 MG TAB PO PRN (15:59)
--- NOTE | 2021-06-28 16:18 | FL ---
EXAMINATION TYPE: FL guidance operating room, XR lumbar spine 2 or 3V DATE OF EXAM: 06/28/2021 CLINICAL HISTORY: Low back pain. Spinal stenosis. TECHNIQUE: Fluoroscopy. Intraoperative 2 views lumbar spine. COMPARISON: Outside lumbar spine x-ray May 25, 2021. FINDINGS: Fluoroscopic guidance was provided during L5-S1 fusion procedure performed by Dr. Sanford on. A total of 2 minutes 38 seconds of fluoroscopic time was utilized during the procedure and 8 spo t images was acquired. Intraoperative images show placement of posterior intramedullary rods and screws along with metallic disc material at L5-S1 level. Satisfactory alignment is seen on intraoperative images obtained. IMPRESSION: As Above.
[2021-06-28 16:25] LABS: Glucose,Whole Blood 99 mg/dL (75-99)
[2021-06-28] MEDS: HYDROmorphone 0.5 MG/0.5 ML SYRINGE IVP PRN ×5 (16:33→21:36)
[2021-06-28] MEDS ORDERED: diphenhydrAMINE 50 MG/ML 1 ML VIAL IVP ONE (16:37)
--- NOTE | 2021-06-28 16:41 | P.PN ---
Progress Note - Text Progress Note Date: 06/28/21 Ms. Sun was seen and examined in postop/recovery. Vital signs are stable, Patient is just waking up. She is able to follow commands and move all extremities. Patient is requesting to lay on her side, instructed patient to wait until she was further awake. She denies pain at this time. Patient will be transferred to medical/surgical floor when bed available.
[2021-06-28] MEDS: SODIUM CHLORIDE 0.9% 1,000 ML IV SCH ×2 (17:04→18:10)
[2021-06-28] MEDS: HYDROcodone/APAP 10-325MG 1 EACH TAB PO PRN (19:14)
[2021-06-28] MEDS: GABAPENTIN 300 MG CAP PO SCH (19:49)
[2021-06-28 21:10] LABS: Glucose,Whole Blood 108 mg/dL (75-99)
[2021-06-28] MEDS ORDERED: BUDESONIDE 0.5 MG/2 ML NEBU INHALATION PRN ×2 (22:57→23:27)
[2021-06-28] MEDS ORDERED: ALBUTEROL NEBULIZED 2.5 MG/3 ML INHALATION PRN (22:57)
[2021-06-28] MEDS ORDERED: CYCLOBENZAPRINE 10 MG TAB PO PRN (22:57)
--- NOTE | 2021-06-28 23:00 | CT ---
EXAMINATION TYPE: CT lumbar spine wo con DATE OF EXAM: 06/28/2021 COMPARISON: CT scan of the abdomen 05/15/2019 HISTORY: Post-op CT DLP: 1057.6 mGycm Automated exposure control for dose reduction was used. Images obtained from the level of T12-S3 vertebra with no contrast. The lumbar vertebra have normal alignment. Disc spaces are fairly normal. There is posterior fusion s urgery at L5-S1 with rods and screws. There is disc prosthesis at L5-S1. Abdominal aorta is atheromat ous. There is multilevel mild facet arthropathy. The sacroiliac joints are intact. No spinal stenosis . No evidence of lumbar paraspinal mass. There is subcutaneous fluid over the lumbar spine with a few air bubbles consistent with postoperativ e changes. IMPRESSION: Posterior fusion surgery. No fracture. No spinal stenosis. Postsurgical changes seen at the subcutane ous tissues with skin juan miguel. Small hematomas in the subcutaneous tissue noted.
[2021-06-28] MEDS: ARTIFICIAL TEARS-HYPROMELLOSE DROPS 15 ML BTL BOTH EYES SCH (23:55)
[2021-06-29] MEDS: HYDROcodone/APAP 10-325MG 1 EACH TAB PO PRN ×5 (01:03→23:37)
[2021-06-29] MEDS: HYDROmorphone 0.5 MG/0.5 ML SYRINGE IVP PRN ×5 (01:58→22:03)
[2021-06-29] MEDS: SODIUM CHLORIDE 0.9% 1,000 ML IV SCH ×2 (05:48→22:15)
[2021-06-29 07:08] LABS: Glucose,Whole Blood 99 mg/dL (75-99)
[2021-06-29] MEDS: LACTATED RINGERS 1,000 ML IV SCH (08:30)
[2021-06-29 09:25] LABS: Basophils # (A) 0 X 10*3/uL (0.00-0.10); Basophils % (A) 0 %; Eosinophils # (A) 0.05 X 10*3/uL (0.04-0.35); Eosinophils % (A) 0.9 %; HCT 34.3 % (37.2-46.3); HGB 11.3 g/dL (12.0-15.0); Immature Grans, Automated 0.3 %; Lymphocytes # (A) 0.74 X 10*3/uL (0.90-5.00); Lymphocytes % (A) 12.7 %; MCH 28.2 pg (27.0-32.0); MCHC 32.9 g/dL (32.0-37.0); MCV 85.5 fL (80.0-97.0); Mean Platelet Volume 10.6 fL (9.5-12.2); Monocytes # (A) 0.33 X 10*3/uL (0.20-1.00); Monocytes % (A) 5.7 %; NRBC Per 100 WBC 0 /100 WBCS (0.0-0.0); Neutrophils % (A) 80.4 %; Platelet Count 170 X 10*3/uL (140-440); RBC 4.01 X 10*6/uL (4.10-5.20); RDW 13.5 % (11.5-14.5); WBC 5.84 X 10*3/uL (4.50-10.00)
--- NOTE | 2021-06-29 09:30 | P.PN ---
Subjective Progress Note Date: 06/29/21 Principal diagnosis: s/p MIS L5-S1 decompression and fusion Ms. Sun has been seen and examined today. Patient currently lying supine in bed. She states she has been up multiple times to the restroom throughout the night and morning. Patient states she is tolerating activity well. She states her pain is managed on current regimen, but had increase in pain when waking up this morning. Surgical dressings are clean dry and intact. Patient is able to move her left foot slightly compared to prior to surgery. Educated patient that it may take time for the nerves to recover. Patient verbalized understanding. LSO brace prescription has been placed in chart. Patient denies fevers/chills, nausea/vomiting, or chest pain. She denies numbness tingling to the perineal region and right lower extremity. Objective - Vital Signs Vital signs: Vital Signs Temp 98.1 F 06/29/21 07:54 Pulse 97 06/29/21 08:00 Resp 16 06/29/21 08:00 BP 107/55 06/29/21 07:54 Pulse Ox 97 06/29/21 07:54 Intake & Output 06/28/21 06/29/21 06/29/21 18:59 06:59 18:59 Intake Total 2150 Output Total 150 Balance 1999 Weight 73 kg 73 kg Intake: IV 2150 Output: Estimated Blood Loss 150 Other: Voiding Method Bedside Commode - Exam Physical Examination General: The patient is awake and alert, in no acute distress Skin: Skin is warm and dry with no obvious rashes or lesions. Hairy patches absent, no dorsal skin dimples, no cafe au lait spots. x2 surgical incisions to paralumbar region. Eye: Pupils are equal, round and reactive to light, extra-ocular movements are intact; there is normal conjunctiva bilaterally. Neck: The neck is supple, there is no tenderness and ROM intact. Cardiovascular: There is a regular rate and rhythm. No murmur, rub or gallop is appreciated. Respiratory: Lungs are clear to auscultation, respirations are non-labored, breath sounds are equal. Gastrointestinal: Soft, non-distended, non-tender abdomen . Back: There is slight tenderness to palpation in the paralumbar, there is no tenderness to midline, parathoracic or buttocks region. There is no obvious deformity . Musculoskeletal: ROM limited secondary to pain and stiffness from surgical procedure. Shoulder abduction 5/5, elbow flexors 5/5, wrist dorsiflexors 5/5. finger abductor 5/5, traditional chinese herbalist 5/5, hip flexor 5/5, knee flexor 4/5, left side 3/5, ankle dorsiflexor 4/5 left side 3/5, ankle plantarflexion 4/5 left side 3/5 and extensor hallucis 4/5, left side 3/5. Neurological: CN 2-12 intact. There are no obvious motor or sensory deficits. Movement and coordination equal and intact. Sensory exam to light touch intact C5-T1 and intact from L2-S1. Reflexes 2/4 in bilateral upper and lower extremities. Negative Hoffmans, babinski, and clonus signs. Psychiatric: Cooperative, appropriate mood & affect, normal judgment. - Labs Labs: Abnormal Lab Results - Last 24 Hours (Table) 06/28/21 Range/Units 21:07 POC Glucose (mg/dL) 108 H (75-99) mg/dL Assessment and Plan Assessment: Postop day 1: MIS L5 to S1 decompression and fusion Plan: Plan: -Appreciate operational risk consultant and team management. -Activity: Ambulate QID, OOB all meals, up and about, limit lifting bending twisting to less than 5 lbs. Use walker or cane if needed for stability. -Daily PT/OT, increase ambulation strength and balance. -Brace when up and about, not needed in bed or chair -Pain control: Adequate at this time -Meds: reviewed -GI ppx: senna, Miralax -DVT PPX: Heparin -Hygiene: Shower today. Maintain dressing clean and dry. Meticulous cleaning after BMs away from the incision site -Encourage IS 10x/hr -Dispo: Anticipate discharge home in the 24 to 48hrs with homecare *I reviewed and discussed this case with my attending Dr. Betancourt, whom has reviewed this chart and films and is in agreement with assessment and plan of care as outlined above. I have personally seen and examined the patient, performed the documentation and the assessment and plan as written. Number of minutes spent on the visit: 20m. Time with Patient: Less than 30
[2021-06-29 09:38] LABS: African American GFR (CKD) 105.4 (60.0-200.0); Anion Gap 9.8 mmol/L (10.00-18.00); BUN/Creat Ratio 15.14 Ratio (12.00-20.00); Blood Urea Nitrogen 10.6 mg/dL (9.0-27.0); Carbon Dioxide 26.2 mmol/L (20.0-27.5); Non-African American GFR(CKD) 90.9 (60.0-200.0); Potassium 3.9 mmol/L (3.5-5.5)
[2021-06-29] MEDS: LORATADINE 10 MG TAB PO SCH (09:52)
[2021-06-29] MEDS: metFORMIN 500 MG TAB PO SCH (09:53)
[2021-06-29] MEDS: ATORVASTATIN 10 MG TAB PO SCH (09:53)
[2021-06-29] MEDS: hydroCHLOROthiazide 12.5 MG CAP PO SCH (09:53)
[2021-06-29] MEDS: MONTELUKAST 10 MG TAB PO SCH (09:53)
[2021-06-29] MEDS: GABAPENTIN 300 MG CAP PO SCH ×5 (09:53→23:40)
--- NOTE | 2021-06-29 11:22 | P.CONS ---
History of Present Illness - Reason for Consult Consult date: 06/29/21 - History of Present Illness HISTORY OF PRESENT ILLNESS This is a 66-year-old female patient of Dr. Fritz with past medical history of diabetes mellitus type 2, asthma moderate intermittent, hyperlipidemia, hypertension. Patient has history of chronic back pain had a fall in March of this year causing worsening pain as well as radiculopathy. Conservative management was attempted but was unable to control her pain. She is now brought into the hospital under the care of Dr. Betancourt status post MIS L5-S1 decompression and fusion, postop day #1. Patient states she has some numbness to the left knee to toe with tingling. She was up to the commode chair with help had increasing pain. She denies having any chest pain. She denies shortness of breath. Patient is complaining of significant back pain this morning which she states worsened after she got up to the commode chair. REVIEW OF SYSTEMS Constitutional: No fever, no chills, no night sweats. No weight change. No weakness, fatigue or lethargy. No daytime sleepiness. EENT: No headache. No blurred vision or double vision, no loss of vision. No loss of Hearing, no ringing in the ears, no dizziness. No nasal drainage or congestion. No epistaxis. No sore throat. Lungs: No shortness of breath, cough, no sputum production. No wheezing. Cardiovascular: No chest pain, no lower extremity edema. No palpitations. No paroxysmal nocturnal dyspnea. No orthopnea. No lightheadedness or dizziness. No syncopal episodes. Abdominal: No abdominal pain. No nausea, vomiting. No diarrhea. No cons tipation. No bloody or tarry stools. No loss of appetite. Genitourinary: No dysuria, increased frequency, urgency. No urinary retention. Musculoskeletal: No myalgias. No muscle weakness, no gait dysfunction, no frequent falls. Reports lumbar back pain. No neck pain. Integumentary: No wounds, no lesions. No rash or pruritus. No unusual bruising. No change in hair or nails. Neurologic: No aphasia. No facial droop. No change in mentation. No head injury. No headache. No paralysis. No paresthesia. Psychiatric: No depression. No anxiety. No mood swings. Endocrine: No abnormal blood sugars. No weight change. No excessive sweating or thirst. No cold intolerance. SOCIAL HISTORY Patient was a smoker of one pack per day for 30 years starting at age 16 and qu it in 1986. She drinks alcohol occasionally. No marijuana or illicit drug use. Patient lives at home with her . She has a nebulizer at home. No CPAP. FAMILY HISTORY Both parents in their 60s and mother had history of diabetes. Details of other medical history are not known. Patient has a total of 12 brothers and sisters unclear of other medical history but 2 brothers in a fire, 1 from complications from MS and one from some type of cancer. Patient has one sister with degenerative disc disease. PHYSICAL EXAMINATION Gen: This is a 66-year-old female. Patient is resting in bed and appears to be comfortable and in no acute distress. HEENT: Head is atraumatic, normocephalic. Pupils equal, round. Sclerae is anicteric. NECK: Supple. No JVD. No lymphadenopathy. No thyromegaly. LUNGS: Clear to auscultation. No wheezes or rhonchi. No intercostal retractions. HEART: Regular rate and rhythm. No murmur. ABDOMEN: Soft. Bowel sounds are present. No masses. No tenderness. EXTREMITIES: No pedal edema. No calf tenderness. Dropfoot left side. NEUROLOGICAL: Patient is awake, alert and oriented x3. Cranial nerves 2 through 12 are grossly intact. ASSESSMENT AND PLAN 1. Lumbar back pain and lower extremity radiculopathy and weakness secondary to L5-S1 herniated nucleus pulposis, central and foraminal stenosis s/p MIS L5-S1 decompression and fusion, 06/28. Continue current pain management per orthopedics, physical therapy and occupational therapy, incentive spirometry to reduce incidence of atelectasis and hospital-acquired pneumonia 2. Diabetes mellitus type 2. Continue patient on metformin 500 mg daily, NovoLog scale before meals and at bedtime. 3. Moderate intermittent asthma without exacerbation. Continue Pulmicort 0.5 mg twice daily, Claritin 10 mg in the morning, Singulair 10 mg daily. 4. Hyperlipidemia. Continue Lipitor 10 mg daily. 5. Hypertension. Continue hydrochlorothiazide 12.5 mg daily. 6. GI prophylaxis. Protonix. 7. DVT prophylaxis per orthopedics. DISCHARGE PLAN Most likely home with homecare. Impression and plan of care have been directed as dictated by the signing physician. Gwendolyn Hernandez nurse practitioner acting as scribe for signing physician. Past Medical History Past Medical History: Asthma, Diabetes Mellitus, Eye Disorder, Fibromyalgia, Hyperlipidemia, Hypertension, Musculoskeletal Disorder, Osteoarthritis (OA), Pneumonia Additional Past Medical History / Comment(s): Hx Bronchitis, hx Pneumonia X5, neuropathy bilateral calves/feet, IBS, Colitis, arthritis in neck/back with chronic pain, DDD, left foot drop with numbness from knee to toe, urinary incontinence, wears a pad, bilateral Glaucoma, Dry Eyes. History of Any Multi-Drug Resistant Organisms: None Reported Past Surgical History: Section Additional Past Surgical History / Comment(s): Cataract surgery, Section X2. Past Anesthesia/Blood Transfusion Reactions: No Reported Reaction, Motion Sickness, Postoperative Nausea & Vomiting (PONV) Additional Past Anesthesia/Blood Transfusion Reaction / Comm: "Constipation after Anesthesia." Past Psychological History: No Psychological Hx Reported Additional Psychological History / Comment(s): Pt resides with her spouse. She uses a cane prn. She has a nebulizer and a glucometer. Smoking Status: Former smoker Past Alcohol Use History: Occasional Additional Past Alcohol Use History / Comment(s): Smoked for 15 years, 1 1/2ppd, quit in 1986. Past Drug Use History: None Reported - Past Family History Sister(s) Family Medical History: Cancer Additional Family Medical History / Comment(s): Colon cancer. Brother(s) Additional Family Medical History / Comment(s): The patient is a total of 4 brothers and 2 in a fire. Father Family Medical History: Hyperlipidemia, Hypertension Additional Family Medical History / Comment(s): Both mother and father are with unknown medical issues. Mother Family Medical History: Diabetes Mellitus Additional Family Medical History / Comment(s): Pt was adopted. Medications and Allergies Home Medications Medication Instructions Recorded Confirmed Type Albuterol Sulfate [Proair Hfa] 1 - 2 puff INHALATION Q4H PRN 11/30/18 06/28/21 History Loratadine [Claritin] 10 mg PO QAM 11/30/18 06/28/21 History Montelukast [Singulair] 10 mg PO QAM 11/30/18 06/28/21 History metFORMIN HCL [Glucophage] 500 mg PO QAM 05/15/19 06/28/21 History Artificial Tears-Hypromellose 1 drops BOTH EYES DIRECTED 06/26/21 06/28/21 History [Artificial Tear Drops] Atorvastatin [Lipitor] 10 mg PO QAM 06/26/21 06/28/21 History Budesonide [Pulmicort] 0.5 mg INHALATION DIRECTED PRN 06/26/21 06/28/21 Hi story Cyclobenzaprine [Flexeril] 10 mg PO DAILY PRN 06/26/21 06/28/21 History Diclofenac Sodium [Voltaren] 75 mg PO DIRECTED 06/26/21 06/28/21 History Gabapentin 300 mg PO BID 06/26/21 06/28/21 History Hydrochlorothiazide 12.5 mg PO QAM 06/26/21 06/28/21 History [hydroCHLOROthiazide] Allergies Allergy/AdvReac Type Severity Reaction Status Date / Time codeine Allergy Unknown Verified 06/26/21 14:48 Physical Exam Vitals: Vital Signs Temp Pulse Pulse Pulse Resp BP BP 06/29/21 07:54 98.1 F 97 16 107/55 06/29/21 01:55 98.0 F 87 16 139/78 06/28/21 19:50 86 155/84 06/28/21 19:35 65 130/80 06/28/21 19:20 80 148/82 06/28/21 19:00 84 151/66 06/28/21 18:30 90 143/78 06/28/21 18:05 82 16 140/74 06/28/21 17:50 79 16 144/80 06/28/21 17:35 85 16 142/70 06/28/21 17:20 80 16 144/73 06/28/21 17:05 86 16 139/73 06/28/21 16:54 81 16 142/68 06/28/21 16:39 89 16 131/65 06/28/21 16:24 96 16 142/77 06/28/21 16:09 97.5 F L 97 18 134/75 06/28/21 11:54 81 16 147/73 06/28/21 11:06 96.5 F L 87 20 177/84 Pulse Ox 06/29/21 07:54 97 06/29/21 01:55 96 06/28/21 19:50 98 06/28/21 19:35 94 L 06/28/21 19:20 98 04/13/22 19:00 97 06/28/21 18:30 95 06/28/21 18:05 100 06/28/21 17:50 96 06/28/21 17:35 100 06/28/21 17:20 97 06/28/21 17:05 97 06/28/21 16:54 100 06/28/21 16:39 100 06/28/21 16:24 98 06/28/21 16:09 96 06/28/21 11:54 99 06/28/21 11:06 98 Intake and Output 06/28/21 06/29/21 06/29/21 22:59 06:59 14:59 Intake Total 500 Output Total 150 Balance 350 Intake: IV 500 Output: Estimated Blood Loss 150 Other: Weight 73 kg Results CBC & Chem 7: 06/29/21 04:30 06/29/21 04:30 Labs: Abnormal Lab Results - Last 24 Hours (Table) 06/28/21 Range/Units 21:07 POC Glucose (mg/dL) 108 H (75-99) mg/dL
[2021-06-29 11:50] LABS: Glucose,Whole Blood 94 mg/dL (75-99)
[2021-06-29] MEDS: INSULIN ASPART (NovoLOG) 100 UNIT/ML VIAL SQ SCH ×3 (11:50→22:05)
[2021-06-29 16:36] LABS: Glucose,Whole Blood 95 mg/dL (75-99)
[2021-06-29 20:08] LABS: Glucose,Whole Blood 120 mg/dL (75-99)
[2021-06-29] MEDS ORDERED: ACETAMINOPHEN TAB 325 MG TAB PO PRN (20:32)
[2021-06-29] MEDS: ARTIFICIAL TEARS-HYPROMELLOSE DROPS 15 ML BTL BOTH EYES SCH (22:13)
[2021-06-30] MEDS: HYDROmorphone 0.5 MG/0.5 ML SYRINGE IVP PRN ×2 (02:17→07:02)
[2021-06-30] MEDS: HYDROcodone/APAP 10-325MG 1 EACH TAB PO PRN (03:34)
[2021-06-30 06:57] LABS: Glucose,Whole Blood 104 mg/dL (75-99)
[2021-06-30] MEDS: INSULIN ASPART (NovoLOG) 100 UNIT/ML VIAL SQ SCH ×4 (07:02→20:59)
[2021-06-30] MEDS: GABAPENTIN 300 MG CAP PO SCH ×5 (07:11→21:18)
--- NOTE | 2021-06-30 08:15 | P.PN ---
Subjective Progress Note Date: 06/30/21 Principal diagnosis: s/p MIS L5-S1 decompression and fusion Ms. Sun has been seen and examined today. Patient currently laying supine in bed. She states her pain is managed to a certain extent, but when she wakes up she is in a lot of pain. Pain medication will be reviewed and modified. Surgical dressings are clean dry and intact. She has been ambulatory to the restroom with a walker. Patient is able to move her left foot off the bed and rotate her left ankle with FROM. Ms. Sun expresses her excitement in her progress. She states she has been working very hard with the bed exercises that we had discussed yesterday. Still waiting on LSO brace to be delivered. Patient denies fevers/chills, nausea/vomiting, or chest pain. She denies numbness tingling to the perineal region. She denies any loss of bowel or bladder. She states she is passing gas, but has not had a BM. Instructed patient to request stool softners and increase her oral liquid intake. Objective - Vital Signs Vital signs: Vital Signs Temp 98.8 F 06/30/21 07:21 Pulse 91 06/30/21 07:21 Resp 19 06/30/21 07:21 BP 134/85 06/30/21 07:21 Pulse Ox 97 06/30/21 07:21 Intake & Output 06/29/21 06/30/21 06/30/21 18:59 06:59 18:59 Intake Total 2350 300 Balance 2350 300 Intake: Intake, IV Titration 1250 Amount Sodium Chloride 0.9% 1, 1200 000 ml @ 75 mls/hr IV . [id number] JENNIFER Rx#:[id number] ceFAZolin 2 gm In Sodium 50 Chloride 0.9% 50 ml @ 100 mls/hr IVPB Q8H JENNIFER Rx#: [id number] Oral 1100 300 Other: Voiding Method Bedside Commode # Voids 3 3 - Exam Physical Examination General: The patient is awake and alert, in no acute distress Skin: Skin is warm and dry with no obvious rashes or lesions. Hairy patches absent, no dorsal skin dimples, no cafe au lait spots. x2 surgical incisions to paralumbar region. Eye: Pupils are equal, round and reactive to light, extra-ocular movements are intact; there is normal conjunctiva bilaterally. Neck: The neck is supple, there is no tenderness and ROM intact. Cardiovascular: There is a regular rate and rhythm. No murmur, rub or gallop is appreciated. Respiratory: Lungs are clear to auscultation, respirations are non-labored, breath sounds are equal. Gastrointestinal: Soft, non-distended, non-tender abdomen . Back: There is slight tenderness to palpation in the paralumbar, there is no tenderness to midline, parathoracic or buttocks region. There is no obvious deformity . Musculoskeletal: ROM limited secondary to pain and stiffness from surgical procedure. Shoulder abduction 5/5, elbow flexors 5/5, wrist dorsiflexors 5/5. finger abductor 5/5, segment block layer 5/5, hip flexor 5/5, knee flexor 4/5, left side 3/5, ankle dorsiflexor 4/5 left side 3/5, ankle plantarflexion 4/5 left side 3/5 and extensor hallucis 4/5. Pt was able to lift left lower extremity off the bed and rotate her left ankle with FROM. Neurological: CN 2-12 intact. There are no obvious motor or sensory deficits. Movement and coordination equal and intact. Sensory exam to light touch intact C5-T1 and intact from L2-S1. Reflexes 2/4 in bilateral upper and lower extremities. Negative Hoffmans, babinski, and clonus signs. Psychiatric: Cooperative, appropriate mood & affect, normal judgment. - Labs CBC & Chem 7: 06/29/21 04:30 06/29/21 04:30 Labs: Abnormal Lab Results - Last 24 Hours (Table) 06/29/21 06/29/21 06/29/21 Range/Units 04:30 04:30 20:06 RBC 4.01 L (4.10-5.20) X 10*6/uL Hgb 11.3 L (12.0-15.0) g/dL Hct 34.3 L (37.2-46.3) % Lymphocytes # 0.74 L (0.90-5.00) X 10*3/uL Anion Gap 9.80 L (10.00-18.00) mmol/L POC Glucose (mg/dL) 120 H (75-99) mg/dL 06/30/21 Range/Units 06:55 RBC (4.10-5.20) X 10*6/uL Hgb (12.0-15.0) g/dL Hct (37.2-46.3) % Lymphocytes # (0.90-5.00) X 10*3/uL Anion Gap (10.00-18.00) mmol/L POC Glucose (mg/dL) 104 H (75-99) mg/dL Assessment and Plan Assessment: Postop day 2: MIS L5 to S1 decompression and fusion Plan: Plan: -Appreciate consultant teacher and team management. -Activity: Ambulate QID, OOB all meals, up and about, limit lifting bending twisting to less than 5 lbs. Use walker or cane if needed for stability. -Daily PT/OT, increase ambulation strength and balance. -Brace when up and about, not needed in bed or chair -Pain control: Pain medication changed to schedule Percocet 7.5mg and scheduled Flexeril 10mg TID. -Meds: reviewed -GI ppx: senna, Miralax -DVT PPX: Heparin -Hygiene: Shower today. Maintain dressing clean and dry. Meticulous cleaning after BMs away from the incision site -Encourage IS 10x/hr -Dispo: Anticipate discharge home in the 24hrs with homecare *I reviewed and discussed this case with my attending Dr. Betancourt, whom has reviewed this chart and films and is in agreement with assessment and plan of care as outlined above. I have personally seen and examined the patient, performed the documentation and the assessment and plan as written. Number of minutes spent on the visit: 20m. Time with Patient: Less than 30
[2021-06-30] MEDS: CYCLOBENZAPRINE 10 MG TAB PO SCH ×3 (08:37→21:17)
[2021-06-30] MEDS: ATORVASTATIN 10 MG TAB PO SCH (08:37)
[2021-06-30] MEDS: PANTOPRAZOLE 40 MG TABLET PO SCH (08:37)
[2021-06-30] MEDS: hydroCHLOROthiazide 12.5 MG CAP PO SCH (08:37)
[2021-06-30] MEDS: LORATADINE 10 MG TAB PO SCH (08:37)
[2021-06-30] MEDS: metFORMIN 500 MG TAB PO SCH (08:37)
[2021-06-30] MEDS: MONTELUKAST 10 MG TAB PO SCH (08:37)
[2021-06-30] MEDS: oxyCODONE-APAP 7.5-325MG 1 EACH TAB PO SCH ×4 (08:37→19:49)
[2021-06-30] MEDS ORDERED: CYCLOBENZAPRINE 5 MG TAB PO SCH (09:00)
[2021-06-30 11:07] LABS: Glucose,Whole Blood 105 mg/dL (75-99)
--- NOTE | 2021-06-30 11:54 | P.PN ---
Subjective Progress Note Date: 06/30/21 HISTORY OF PRESENT ILLNESS This is a 66-year-old female patient of Dr. Fritz with past medical history of diabetes mellitus type 2, asthma moderate intermittent, hyperlipidemia, hy pertension. Patient has history of chronic back pain had a fall in March of this year causing worsening pain as well as radiculopathy. Conservative management was attempted but was unable to control her pain. She is now brought into the hospital under the care of Dr. Betancourt status post MIS L5-S1 decompression and fusion, postop day #1. Patient states she has some numbness to the left knee to toe with tingling. She was up to the commode chair with help had increasing pain. She denies having any chest pain. She denies shortness of breath. Patient is complaining of significant back pain this morning which she states worsened after she got up to the commode chair. 06/30: Patient is postop day #2. She states that she is having more pain but is tolerable. She is happy that she is able to have more movement of her left leg. She denies having any fever or chills. Patient is complaining of constipation for which medications adjusted. Temperature max 100.1. Heart rate 91, blood pressure 134/85, pulse ox 97% on room air. Capillary blood glucose running between 94 and 120. Orthopedics has ordered LSO brace and discharge plan is for home with home care in the next 24 hours. REVIEW OF SYSTEMS Constitutional: No fever, no chills, no night sweats. No weight change. No weakness, fatigue or lethargy. No daytime sleepiness. EENT: No headache. No blurred vision or double vision, no loss of vision. No loss of Hearing, no ringing in the ears, no dizziness. No nasal drainage or congestion. No epistaxis. No sore throat. Lungs: No shortness of breath, cough, no sputum production. No wheezing. Cardiovascular: No chest pain, no lower extremity edema. No palpitations. No paroxysmal nocturnal dyspnea. No orthopnea. No lightheadedness or dizziness. No syncopal episodes. Abdominal: No abdominal pain. No nausea, vomiting. No diarrhea. Reports constipation. No bloody or tarry stools. No loss of appetite. Genitourinary: No dysuria, increased frequency, urgency. No urinary retention. Musculoskeletal: No myalgias. No muscle weakness, no gait dysfunction, no frequent falls. Reports lumbar back discomfort. No neck pain. Integumentary: No wounds, no lesions. No rash or pruritus. No unusual bruising. No change in hair or nails. Neurologic: No aphasia. No facial droop. No change in mentation. No head injury. No headache. No paralysis. No paresthesia. Psychiatric: No depression. No anxiety. No mood swings. Endocrine: No abnormal blood sugars. No weight change. No excessive sweating or thirst. No cold intolerance. PHYSICAL EXAMINATION Gen: This is a 66-year-old female. Patient is resting in bed and appears to be comfortable and in no acute distress. HEENT: Head is atraumatic, normocephalic. Pupils equal, round. Sclerae is anicteric. NECK: Supple. No JVD. No lymphadenopathy. No thyromegaly. LUNGS: Clear to auscultation. No wheezes or rhonchi. No intercostal retractions. HEART: Regular rate and rhythm. No murmur. ABDOMEN: Soft. Bowel sounds are present. No masses. No tenderness. EXTREMITIES: No pedal edema. No calf tenderness. Dropfoot left side, range of motion improving. NEUROLOGICAL: Patient is awake, alert and oriented x3. Cranial nerves 2 through 12 are grossly intact. ASSESSMENT AND PLAN 1. Lumbar back pain and lower extremity radiculopathy and weakness secondary to L5-S1 herniated nucleus pulposis, central and foraminal stenosis s/p MIS L5-S1 decompression and fusion, 06/28. Continue current pain management per orthopedi cs, physical therapy and occupational therapy, incentive spirometry to reduce incidence of atelectasis and hospital-acquired pneumonia 2. Diabetes mellitus type 2. Continue patient on metformin 500 mg daily, NovoLog scale before meals and at bedtime. 3. Moderate intermittent asthma without exacerbation. Continue Pulmicort 0.5 mg twice daily, Claritin 10 mg in the morning, Singulair 10 mg daily. 4. Hyperlipidemia. Continue Lipitor 10 mg daily. 5. Hypertension. Continue hydrochlorothiazide 12.5 mg daily. 6. GI prophylaxis. Protonix. 7. DVT prophylaxis per orthopedics. DISCHARGE PLAN Home with [facility] on Saturday. Impression and plan of care have been directed as dictated by the signing physician. Gwendolyn Hernandez nurse practitioner acting as scribe for signing physician. Objective - Vital Signs Vital signs: Vital Signs Temp 98.8 F 06/30/21 07:21 Pulse 91 06/30/21 07:21 Resp 19 06/30/21 07:21 BP 134/85 06/30/21 07:21 Pulse Ox 97 06/30/21 07:21 Intake & Output 06/29/21 06/30/21 06/30/21 18:59 06:59 18:59 Intake Total 2350 300 Balance 2350 300 Intake: Intake, IV Titration 1250 Amount Sodium Chloride 0.9% 1, 1200 000 ml @ 75 mls/hr IV . [id number] JENNIFER Rx#:[id number] ceFAZolin 2 gm In Sodium 50 Chloride 0.9% 50 ml @ 100 mls/hr IVPB Q8H JENNIFER Rx#: [id number] Oral 1100 300 Other: Voiding Method Bedside Commode Bedside Commode # Voids 3 3 - Labs CBC & Chem 7: 06/29/21 04:30 06/29/21 04:30 Labs: Abnormal Lab Results - Last 24 Hours (Table) 06/29/21 06/29/21 06/29/21 Range/Units 04:30 04:30 20:06 RBC 4.01 L (4.10-5.20) X 10*6/uL Hgb 11.3 L (12.0-15.0) g/dL Hct 34.3 L (37.2-46.3) % Lymphocytes # 0.74 L (0.90-5.00) X 10*3/uL Anion Gap 9.80 L (10.00-18.00) mmol/L POC Glucose (mg/dL) 120 H (75-99) mg/dL 06/30/21 Range/Units 06:55 RBC (4.10-5.20) X 10*6/uL Hgb (12.0-15.0) g/dL Hct (37.2-46.3) % Lymphocytes # (0.90-5.00) X 10*3/uL Anion Gap (10.00-18.00) mmol/L POC Glucose (mg/dL) 104 H (75-99) mg/dL
[2021-06-30] MEDS: SENNOSIDES-DOCUSATE SODIUM 1 EACH TAB PO SCH (12:40)
[2021-06-30] MEDS: SODIUM CHLORIDE 0.9% 1,000 ML IV SCH ×2 (14:32→21:21)
[2021-06-30] MEDS: LACTATED RINGERS 1,000 ML IV SCH (14:33)
[2021-06-30 16:20] LABS: Glucose,Whole Blood 137 mg/dL (75-99)
[2021-06-30 20:50] LABS: Glucose,Whole Blood 107 mg/dL (75-99)
[2021-06-30] MEDS: polyethylene glycoL 3350 17 GM POWD.PACK PO SCH (21:18)
[2021-07-01] MEDS: ARTIFICIAL TEARS-HYPROMELLOSE DROPS 15 ML BTL BOTH EYES SCH (00:53)
[2021-07-01] MEDS: oxyCODONE-APAP 7.5-325MG 1 EACH TAB PO SCH ×6 (01:13→20:38)
[2021-07-01 06:52] LABS: Glucose,Whole Blood 92 mg/dL (75-99)
[2021-07-01] MEDS: INSULIN ASPART (NovoLOG) 100 UNIT/ML VIAL SQ SCH ×4 (06:54→20:37)
--- NOTE | 2021-07-01 08:27 | P.PN ---
Subjective Progress Note Date: 07/01/21 Patient seen and examined this morning she is still having pain in her back that comes and goes and is fairly severe requiring IV medications. Nursing is attempting to wean her off these medications she has scheduled oral medications and multimodal treatments that are helping her. She states she is not quite ready to go home as her is ill and crystalloid can help her. She can almost get up to the bathroom by herself but not quite yet she did get up yesterday walked around the nursing station she did get a couple laps around the floor of which she is now feeling today and is probably fairly sore from. She denies fevers chills shortness of breath or chest pain she denies any new weakness she states her left lower extremity is recovering is actually doing better. She denies any other issues at this time she is voiding appropriately and passing gas. Objective - Vital Signs Vital signs: Vital Signs Temp 98.5 F 07/01/21 02:00 Pulse 96 07/01/21 02:00 Resp 16 07/01/21 02:00 BP 126/77 07/01/21 02:00 Pulse Ox 96 07/01/21 02:00 Intake & Output 06/30/21 07/01/21 07/01/21 18:59 06:59 18:59 Intake Total 1530 300 Balance 1530 300 Intake: Oral 1530 300 Other: Voiding Method Bedside Commode # Voids 2 7 - Exam Patient is alert and oriented 3 appears well-nourished well-hydrated is in no acute distress. They do not appear septic. On exam the patient has no tenderness to palpation of her thoracic or lumbar spine. There is no edema or ballottement sign. Lower extremities with [5]/5 strength in all major muscle groups except for her left lower extremity in her dorsiflexion and EHL where she has now 3+ strength which is better and improved Upper extremities show [5]/5 strength in all major muscle groups. No other focal deficits [2]/4DTR all UE and LE b/l Patient shows a negative Homans, Duque's, negative Babinski's negative clonus bilaterally. negative straight leg raise bilaterally. No tensioning signs. Cranial nerves II through XII are grossly intact. There is FROM that is painless of the b/l UE and LE in all major joints [w/o pain]. They are intact to light touch sensation in L2 to S1 nerve distribution. Patient has palpable dorsalis pedis was posterior tibial pulses. Compartments are soft and compressible. Incisions are clean dry and intact - Labs CBC & Chem 7: 06/29/21 04:30 06/29/21 04:30 Labs: Abnormal Lab Results - Last 24 Hours (Table) 06/30/21 06/30/21 06/30/21 Range/Units 11:05 16:18 20:50 POC Glucose (mg/dL) 105 H 137 H 107 H (75-99) mg/dL Assessment and Plan Assessment: 66-year-old female postoperative day 3 L5-S1 minimally invasive transforaminal lumbar interbody fusion and decompression 1. L5-S1 large herniated nucleus pulposus 2. L5-S1 severe central and foraminal stenosis 3. Left lower extremity radiculopathy 4. Left lower extremity weakness with foot drop Plan: -Appreciate windows consultant and team management. -Activity: Ambulate QID, OOB all meals, up and about, limit lifting bending twisting to less than 5 lbs. Use walker or cane if needed for stability. -Daily PT/OT, increase ambulation strength and balance. -Brace when up and about, not needed in bed or chair -Pain control: Adequate at this time -Meds: reviewed -GI ppx: senna, Miralax -DVT PPX: Mechanical plus heparin -Hygiene: Shower today. Maintain dressing clean and dry. Meticulous cleaning after BMs away from incision site -Encourage IS 10x/hr -Dispo: Likely home tomorrow with home health care
[2021-07-01 08:28] VITALS: RESP 18
[2021-07-01] MEDS: GABAPENTIN 300 MG CAP PO SCH ×4 (08:39→20:39)
[2021-07-01] MEDS: CYCLOBENZAPRINE 10 MG TAB PO SCH ×3 (08:39→20:38)
[2021-07-01] MEDS: ATORVASTATIN 10 MG TAB PO SCH (08:39)
[2021-07-01] MEDS: metFORMIN 500 MG TAB PO SCH (08:40)
[2021-07-01] MEDS: LORATADINE 10 MG TAB PO SCH (08:40)
[2021-07-01] MEDS: hydroCHLOROthiazide 12.5 MG CAP PO SCH (08:40)
[2021-07-01] MEDS: MONTELUKAST 10 MG TAB PO SCH (08:40)
[2021-07-01] MEDS: PANTOPRAZOLE 40 MG TABLET PO SCH (08:40)
[2021-07-01] MEDS: SENNOSIDES-DOCUSATE SODIUM 1 EACH TAB PO SCH (08:41)
--- NOTE | 2021-07-01 08:43 | P.OP ---
Date of Procedure: 06/28/21 Preoperative Diagnosis: 1. L5-S1 large herniated nucleus pulposus 2. L5-S1 severe central and foraminal stenosis 3. Left lower extremity radiculopathy 4. Left lower extremity weakness with foot drop Postoperative Diagnosis: 1. L5-S1 large herniated nucleus pulposus 2. L5-S1 severe central and foraminal stenosis 3. Left lower extremity radiculopathy 4. Left lower extremity weakness with foot drop Procedure(s) Performed: 1. L5-S1 posteriolateral and interbody fusion combined minimally invasive (22572) 2. Insertion of biomechanical device L5-S1 (91598) 3. L5-S1 non segmental instrumentation (76873) 4. Posterior Extradural Laminotomy or Laminectomy for Exploration/ Decompression of Neural Elements L5-S1 (75533) 5. Use of intraoperative neuro monitoring 6. Interpretation of intraoperative fluoroscopy less than 1 hour (40227) Implants: -Globus creo MIS screws -Amplify 8-10 mm 8 deg lordotic interbody -Autograft -Allograft -DBM -Bio4 Anesthesia: GETA Surgeon: Richard Betancourt Liner Checker #1: Yu Puga (This is assisted with positioning decompression fusion instrumentation closure.) Estimated Blood Loss (ml): 150 IV fluids (ml): 1,500 Urine output (ml): 0 Pathology: none sent Condition: stable Disposition: PACU Indications for Procedure: Jojo Sun is presenting for evaluation of low back pain. It was my pleasure to have seen and examined Jojo Sun. In our visit today we have had a chance to go over subjective complaints, physical examination findings and treatments including the natural course history without intervention and various interventional options. The patients imaging demonstrates Xrays: spondylosis noted at L5-S1 with complete disc desiccation. There is a stable grade 1 spondylolisthesis L4-L5. There is facet arthrosis no fracture dislocations otherwise noted overall alignment is fairly well maintained. AP pelvis level pelvis no fracture. MRI: This is reviewed and demonstrates a large central paracentral and foraminal disc herniation at L5-S1 which is eccentric to the left hand side but does cause central stenosis as well. There is severe disc desiccation and disc height loss L5-S1 secondary to a large disc herniation in this area this causes encroachment on the L5 and S1 nerve roots mainly on the left-hand side however does affect the right-hand side appears as well. there is facet hypertrophy and overgrowth as well as ligamental overgrowth at this level as well. There is a subtle grade 1 spondylolisthesis L4 on L5cafpa is only marginally mobile on flexion extension films in comparison to this supine film. No other fracture dislocation or lesion is otherwise noted. There is minor disc bulging noted at L3-L4 which causes mild central stenosis no foraminal stenosis. On physical exam, Jojo Sun demonstrates diffuse tenderness both midline an paraspinal throughout the lumbar region. Patient also demonstrates weakness upon testing with the left lower extremity as well as cauda symptomology. I have explained to the patient that as their condition progresses it will cause further neurological deficits and eventual paralysis. Based on the patients imaging, physical exam, and the rapid progression and disabling nature of their symptoms, at this time I recommend surgery in the form or a: L5-S1 decompression and fusion MIS approach. I discussed the risk and benefits of this procedure at length with Jojo Sun. The patient and her spouse agreed to considered pursuing the procedure abovementioned. Prior to surgery, she should follow up with her PCP (Cardio, ID, IM etc) for clearance. Questions were invited and answered, and the patient wishes to proceed as outlined below. Currently, I am recommendin.L5-S1 decompression and fusion MIS approach 2.Follow up with PCP for surgical clearance 3.Review of surgical risks and benefits as well as an educational packet on the proposed surgical procedure. Description of Procedure: The patient was seen and examined in the preoperative area. All preoperative protocols were followed. Informed consent was obtained risks and benefits of the procedure were discussed at length. Risks including bleeding infection damage to the surrounding tissue and risk of reoperation were discussed with the patient. Risk of anesthesia up to and including was a discussed with the patient. These are outlined in the risk review. They were willing to accept these risks and all of the risks of surgery. The patient was given a weight- based dose of antibiotics in the form of 2 g Ancef. The patient was seen and evaluated by the anesthesia team who deemed them fit for surgery. The site was marked, the patient was willing to proceed with the procedure. The patient was transferred to the operative suite by the Department of anesthesia. They were then drifted off to sleep by the department anesthesia and GETA was performed. The patient tolerated this well. Once confirmation of lines and ventilation the patient was transferred to a [prone Patrice table very carefully]. All bony prominences including wrists, elbows, axilla, chest, hips, and thighs, and feet were padded very well. Special attention was paid to the genitalia and these were padded accordingly. SCDs were placed on bilateral lower extremities and were connected. Arms were well padded and placed [on arm boards up and out in the 90/90 position]. Once in position, again we confirmed good ventilation capabilities and that lines were running appropriately. The patient's lumbar spine was then exposed. 1010s were placed outlining the incision site. Standard alcohol was used to clean the incision site and allowed to dry. C-arm was used to biomark the patient and confirm level for incision which was marked with a skin marker. Operative briefing was performed with all teams and everyone in agreement to proceed. The patient was then prepped and draped in a normal sterile fashion. Timeout was then performed and all parties were in agreement with the procedure to be performed. Over the previously by marked areas of the pedicles on the right-hand side skin nicks were made and the Jamshidi was inserted under AP and lateral fluoroscopic guidance into L5 on the right-hand side. This was advanced in the appropriate orientation until within the vertebral body. These were then this was then measured and a wire was placed. Screws then placed over the wire and the lateral fluoroscopic guidance. We then repeated this process of S1 on the right-hand side with Jamshidi followed by a wire followed by screw placement. We then turned our attention to the left-hand side where skin incision was made over the previously by marked area. We then placed sequential dilators under AP and lateral fluoroscopic guidance over the L5-S1 interspace lamina pars and joint. We then sequentially dilated to a 26 mm tube. Once this was accomplished we then confirmed our placement in AP and lateral fluoroscopic imaging which confirmed good placement of the tube was locked in position. Then performed limited myomectomy in this area identifying the joints the I AP of L5 and the SAP of S1 along with the pars of L5. High-speed bur was then used to remove the I followed by the SAP of S1 we have performed a laminectomy removing the lamina and the pars at this level. Kerrison was then used to extend this laminectomy and laminotomy defect for decompression extradurally around the neural elements. We identified the exiting as well as traversing nerve roots and these were completely decompressed here. We then identified the disc space which showed a large disc herniation which was protruding out this was then entered under lateral fluoroscopic ends with a osteotome followed by sequential blunt wali. This allowed for tenriism of height at this level. We then used sharp wali to ensure good bleeding endplates and removal of all cartilaginous material. Down-biting curet was used to reach across and underneath the dura to ensure that there was no compressive lesions here. We then well protecting the exiting traversing nerve roots as well as the dura siz ed for a cage. Then placed autograft allograft DBM and bullets anterior within the disc space. The ample 5 cage was then selected and while protecting the neural elements was impacted into place under lateral fluoroscopic guidance. Once in good position it was then confirmed to be centrally located under AP fluoroscopically. We then expanded the cage laterally ensuring that it is anterior within the disc space. Once it was completely laterally expanded we impacted its into the anterior aspect of the disc space. We then expanded to its craniocaudally and locked in position. It was then locked in place with the set screw. We then back filled the cage with DBM. Meticulous hemostasis was performed of the area further extradural laminotomy and laminectomy was performed for complete decompression centrally as well as foraminally. We then irrigated this area out placed FloSeal deep within the wound for hemostatic purposes. We Then using a high-speed bur to decorticate posterior laterally and placed bone graft. The retractors were then removed under direct visualization. We have proceeded with placement of screws on the left-hand side Glenshidi was advanced into the L5 pedicle under AP and lateral fluoroscopic guidance followed by a wire followed by screw in the repeated this at S1 on the left-hand side as well. Once screws were in place they were all tested well above 20 mA. We then sized and selected a latasha which was then placed subfascially and locked into position with set screws. Set screws were final tightened bilaterally and tabs were removed from screws. Final AP and lateral fluoroscopic images confirmed placement of hardware as well as reduction in lordosis. We then thoroughly irrigated the wounds vancomycin was placed deep within the wounds. We then c losed the fascia with 0 Vicryl followed by the deep subcu tissue with 0 Vicryl to Vicryl was placed and superficial subcu tissue and skin juan miguel placed in the skin. The wound edges approximated very well and there were no complications. The wounds were then cleaned sterilely and dressed with operative foam dressings. The patient was transferred back to their hospital bed atraumatically. . Buzz gallagher was then awakened and extubated by the department of anesthesia having tolerated the procedure very well with no complications. They were transferred to the postoperative care unit in stable condition.
[2021-07-01 11:03] LABS: HCT 34.7 % (34.0-46.0); HGB 11.5 gm/dL (11.4-16.0); MCH 28.8 pg (25.0-35.0); MCV 87.1 fL (80.0-100.0); Mean Platelet Volume 7.6; Platelet Count 183 k/uL (150-450); RBC 3.98 m/uL (3.80-5.40); RDW 13.5 % (11.5-15.5); WBC 4.7 k/uL (3.8-10.6)
[2021-07-01 11:16] LABS: ALT 9 U/L (4-34); AST 29 U/L (14-36); African American GFR (CKD) >90 (>60 ml/min/1.73 sqM); Albumin 3.1 g/dL (3.5-5.0); Albumin/Globulin Ratio 1.2; Alkaline Phosphatase 56 U/L (38-126); Anion Gap 4 mmol/L; Blood Urea Nitrogen 9 mg/dL (7-17); Calcium 8.9 mg/dL (8.4-10.2); Carbon Dioxide 33 mmol/L (22-30); Chloride 101 mmol/L (98-107); Globulin 2.6 g/dL; Glucose 98 mg/dL (74-99); Non-African American GFR(CKD) >90 (>60 ml/min/1.73 sqM); Potassium 3.7 mmol/L (3.5-5.1); Sodium 138 mmol/L (137-145); Total Bilirubin 0.5 mg/dL (0.2-1.3); Total Protein 5.7 g/dL (6.3-8.2)
[2021-07-01 11:50] LABS: Glucose,Whole Blood 91 mg/dL (75-99)
[2021-07-01] MEDS: HYDROmorphone 0.5 MG/0.5 ML SYRINGE IVP PRN (12:05)
[2021-07-01 16:32] LABS: Glucose,Whole Blood 104 mg/dL (75-99)
--- NOTE | 2021-07-01 19:51 | P.PN ---
Subjective Progress Note Date: 07/01/21 HISTORY OF PRESENT ILLNESS This is a 66-year-old female patient of Dr. Fritz with past medical history of diabetes mellitus type 2, asthma moderate intermittent, hyperlipidemia, hyp ertension. Patient has history of chronic back pain had a fall in March of this year causing worsening pain as well as radiculopathy. Conservative management was attempted but was unable to control her pain. She is now brought into the hospital under the care of Dr. Betancourt status post MIS L5-S1 decompression and fusion, postop day #1. Patient states she has some numbness to the left knee to toe with tingling. She was up to the commode chair with help had increasing pain. She denies having any chest pain. She denies shortness of breath. Patient is complaining of significant back pain this morning which she states worsened after she got up to the commode chair. 06/30: Patient is postop day #2. She states that she is having more pain but is tolerable. She is happy that she is able to have more movement of her left leg. She denies having any fever or chills. Patient is complaining of constipation for which medications adjusted. Temperature max 100.1. Heart rate 91, blood pressure 134/85, pulse ox 97% on room air. Capillary blood glucose running between 94 and 120. Orthopedics has ordered LSO brace and discharge plan is for home with home care in the next 24 hours. 07/01: date 3 post surgery, pain is better control, patient be switched to oral medication on the patient is able to get out of bed at this point doing slightly but better blood pressure is stable patient as well as manage hemodynamically. Blood sugars running below 100, patient is appetite is doing well. Apparently patient be going home tomorrow. REVIEW OF SYSTEMS Constitutional: No fever, no chills, no night sweats. No weight change. No weakness, fatigue or lethargy. No daytime sleepiness. EENT: No headache. No blurred vision or double vision, no loss of vision. No loss of Hearing, no ringing in the ears, no dizziness. No nasal drainage or congestion. No epistaxis. No sore throat. Lungs: No shortness of breath, cough, no sputum production. No wheezing. Cardiovascular: No chest pain, no lower extremity edema. No palpitations. No paroxysmal nocturnal dyspnea. No orthopnea. No lightheadedness or dizziness. No syncopal episodes. Abdominal: No abdominal pain. No nausea, vomiting. No diarrhea. Reports constipation. No bloody or tarry stools. No loss of appetite. Genitourinary: No dysuria, increased frequency, urgency. No urinary retention. Musculoskeletal: No myalgias. No muscle weakness, no gait dysfunction, no frequent falls. Reports lumbar back discomfort. No neck pain. Integumentary: No wounds, no lesions. No rash or pruritus. No unusual bruising. No change in hair or nails. Neurologic: No aphasia. No facial droop. No change in mentation. No head injury. No headache. No paralysis. No paresthesia. Psychiatric: No depression. No anxiety. No mood swings. Endocrine: No abnormal blood sugars. No weight change. No excessive sweating or thirst. No cold intolerance. PHYSICAL EXAMINATION Gen: This is a 66-year-old female. Patient is resting in bed and appears to be comfortable and in no acute distress. HEENT: Head is atraumatic, normocephalic. Pupils equal, round. Sclerae is an icteric. NECK: Supple. No JVD. No lymphadenopathy. No thyromegaly. LUNGS: Clear to auscultation. No wheezes or rhonchi. No intercostal retractions. HEART: Regular rate and rhythm. No murmur. ABDOMEN: Soft. Bowel sounds are present. No masses. No tenderness. EXTREMITIES: No pedal edema. No calf tenderness. Dropfoot left side, range of motion improving. NEUROLOGICAL: Patient is awake, alert and oriented x3. Cranial nerves 2 through 12 are grossly intact. ASSESSMENT AND PLAN 1. Lumbar back pain and lower extremity radiculopathy and weakness secondary to L5-S1 herniated nucleus pulposis, central and foraminal stenosis s/p MIS L5-S1 decompression and fusion, 06/28. Continue current pain management per orthopedics, physical therapy and occupational therapy, incentive spirometry to reduce incidence of atelectasis and hospital-acquired pneumonia continue PTOT p atient will require probably outpatient physical therapy. 2. Diabetes mellitus type 2. Continue patient on metformin 500 mg daily, NovoLog scale before meals and at bedtime.blood sugars range below 100. 3. Moderate intermittent asthma without exacerbation. Continue Pulmicort 0.5 mg twice daily, Claritin 10 mg in the morning, Singulair 10 mg daily.still on rescue Ventolin HFA as needed. 4. Hyperlipidemia. Continue Lipitor 10 mg daily. 5. Hypertension. Continue hydrochlorothiazide 12.5 mg daily. 6 chronic pain syndrome: Remain on hydrocodone at this point and off Dilaudid. Discharge planning: Possibly home tomorrow with home care and physical therapy. Objective - Vital Signs Vital signs: Vital Signs Temp 98.5 F 07/01/21 02:00 Pulse 96 07/01/21 02:00 Resp 16 07/01/21 02:00 BP 126/77 07/01/21 02:00 Pulse Ox 96 07/01/21 02:00 Intake & Output 06/30/21 06/30/21 07/01/21 06:59 18:59 06:59 Intake Total 300 1530 Balance 300 1530 Intake: Oral 300 1530 Other: Voiding Method Bedside Commode # Voids 3 2 7 - Labs CBC & Chem 7: 07/01/21 10:21 07/01/21 10:21 Labs: Abnormal Lab Results - Last 24 Hours (Table) 06/30/21 06/30/21 06/30/21 Range/Units 06:55 11:05 16:18 POC Glucose (mg/dL) 104 H 105 H 137 H (75-99) mg/dL 06/30/21 Range/Units 20:50 POC Glucose (mg/dL) 107 H (75-99) mg/dL
[2021-07-01 20:12] LABS: Glucose,Whole Blood 116 mg/dL (75-99)
[2021-07-01] MEDS: SODIUM CHLORIDE 0.9% 1,000 ML IV SCH (20:13)
[2021-07-01] MEDS: LACTATED RINGERS 1,000 ML IV SCH (20:13)
[2021-07-01] MEDS: polyethylene glycoL 3350 17 GM POWD.PACK PO SCH (20:38)
[2021-07-02] MEDS: oxyCODONE-APAP 7.5-325MG 1 EACH TAB PO SCH ×4 (00:15→12:00)
[2021-07-02] MEDS: ARTIFICIAL TEARS-HYPROMELLOSE DROPS 15 ML BTL BOTH EYES SCH (00:16)
[2021-07-02] MEDS: SODIUM CHLORIDE 0.9% 1,000 ML IV SCH (02:02)
[2021-07-02 06:54] LABS: Glucose,Whole Blood 102 mg/dL (75-99)
[2021-07-02] MEDS: INSULIN ASPART (NovoLOG) 100 UNIT/ML VIAL SQ SCH ×2 (06:57→11:53)
[2021-07-02] MEDS: GABAPENTIN 300 MG CAP PO SCH (08:05)
[2021-07-02] MEDS: CYCLOBENZAPRINE 10 MG TAB PO SCH (08:05)
[2021-07-02] MEDS: ATORVASTATIN 10 MG TAB PO SCH (08:05)
[2021-07-02] MEDS: LORATADINE 10 MG TAB PO SCH (08:05)
[2021-07-02] MEDS: MONTELUKAST 10 MG TAB PO SCH (08:05)
[2021-07-02] MEDS: PANTOPRAZOLE 40 MG TABLET PO SCH (08:06)
[2021-07-02] MEDS: SENNOSIDES-DOCUSATE SODIUM 1 EACH TAB PO SCH (08:06)
[2021-07-02] MEDS: metFORMIN 500 MG TAB PO SCH (08:06)
[2021-07-02] MEDS: hydroCHLOROthiazide 12.5 MG CAP PO SCH (08:06)
[2021-07-02 08:25] VITALS: BP 103/69; PULSE 73; TEMP 98.3
--- NOTE | 2021-07-02 08:34 | P.DS ---
Providers Date of admission: 07/01/21 11:00 Expected date of discharge: 07/02/21 Attending physician: Richard Betancourt DO Consults: 06/28/21 16:04 Consult Physician Routine Consulting Provider: Kwame Fritz Reason/Comments: Medical Management Do you want consulting provider notified?: Yes Primary care physician: Kwame Fritz [facility] Course: Date of admission: 06/28/2021 Date of discharge: 07/02/2021 Admission diagnosis: 1. L5-S1 large herniated nucleus pulposus 2. L5-S1 severe central and foraminal stenosis 3. Left lower extremity radiculopathy 4. Left lower extremity weakness with foot drop Discharge diagnosis: Same Attending physician: Dr. Betancourt Surgical procedures: 1. L5-S1 posteriolateral and interbody fusion combined minimally invasive 2. Insertion of biomechanical device L5-S1 3. L5-S1 non segmental instrumentation 4. Posterior Extradural Laminotomy or Laminectomy for Exploration/ Decompression of Neural Elements L5-S1 5. Use of intraoperative neuro monitoring 6. Interpretation of intraoperative fluoroscopy less than 1 hour Brief history: Patient is a 66-year-old female with a history of L5-S1 large herniated nucleus pulposus; L5-S1 severe central and foraminal stenosis; left lower extremity radiculopathy; left lower extremity weakness with footdrop. At this point patient has failed conservative treatment measures and has opted to proceed with a elective L5-S1 posteriolateral and interbody fusion combined minimally invasive; insertion of biomechanical device L5-S1; L5-S1 nonsegmental instrumentation; posterior extradural laminotomy or laminectomy for exploration/decompression of neural elements L5-S1. Hospital course: Details of patient's surgery can be found in operative report. Patient tolerated the procedure well and was subsequently transported to orthopedic floor. Patient's orthopeidc and medical care was provided daily. Patient had daily laboratory tests performed for evaluation of overall blood counts. Patient had daily physical therapy to include strengthening range of motion as well as education with walker ambulation. Patient was noted to have a relatively uneventful postoperative course. Patient reported satisfactory pain control with oral pain medications by postoperative day 4. Patient showed satisfactory progress with physical therapy. Patient moved steadily through the program and had no difficulty meeting the goals by postoperative day 4. Given patient's otherwise satisfactory course and having met physical therapy goals, plan is to discharge patient home with health services on postoperative day 4. Discharge condition/disposition: Patient will be discharged home with health services in stable condition. Discharge medications: Instructions are given on resumption of patient's normal daily medications per primary care recommendation, in addition patient will be prescribed oxycodone 7.5 mg/325 mg; gabapentin 300 mg 3 times a day; Flexeril; senna; MiraLAX Spine Discharge and Recovery Instructions Date of Surgery: 06/28/2021 Diagnosis: 1. L5-S1 large herniated nucleus pulposus 2. L5-S1 severe central and foraminal stenosis 3. Left lower extremity radiculopathy 4. Left lower extremity weakness with foot drop Procedure: 1. L5-S1 posteriolateral and interbody fusion combined minimally invasive 2. Insertion of biomechanical device L5-S1 3. L5-S1 non segmental instrumentation 4. Posterior Extradural Laminotomy or Laminectomy for Exploration/ Decompression of Neural Elements L5-S1 5. Use of intraoperative neuro monitoring 6. Interpretation of intraoperative fluoroscopy less than 1 hour Medications: See medication list All medication refills should be obtained through your primary care doctor or your clinic spine surgeon. Please discuss prescription refills at your follow up appointment. Do not call the hospital for medication refills. Dressing: Leave your dressing in place for a total of 5 days post operatively. Then you may remove your dressing and leave open to air. Keep the area clean and if not able to keep area clean, then cover with sterile gauze and tape. Showering: You may shower 3 days after your procedure allowing soap and water to run over incision. Do not scrub. Do not soak. Blot dry. Follow up: Please confirm a follow up appointment with your surgeon 3 weeks post operatively. Please make an appointment to follow up with your PCP in 1-2 weeks after surgery for evaluation 3 phase, 3-week plan POST OP WEEKS 1-3 1. Lifting/carrying/pushing/pulling limited to less than 5 pounds. 2. Do not sit for longer than 15 minutes at one time. Get up and walk around. Prolonged sitting is NOT advised. If you lay down, see if you can tolerate laying down on you front (belly side) 3. Walk for periods of 15 minutes = 1 mile but no longer; do it multiple times times each day. 4. Ice your low back after activity. POST OP WEEKS 3-6 1. Lifting limited to less than 20 pounds. 2. Do not sit for longer than 30 minutes at a time. Frequently change positions. Use a sit-to stand workstation or take frequent breaks from sitting if you have returned to work. 3. Walk for 30 minutes each day. If possible, do these three or more times a day POST OP WEEKS 6+ At your 6-week appointment we will give you a physical therapy referral to focus on a core stabilization and strengthening program. You should also work on leg & buttock strengthening, hamstring & quadriceps stretching, and continue a low impact aerobic activity program such as swimming, walking, or riding a stationary bicycle. During the initial 6 weeks after your surgery, you are at the highest risk of re-injuring your spine. You should generally avoid BLTs (bending, lifting and twisting combination motions) and follow the above guidelines to reduce the chance of reinjury. You can anticipate post op appointments in our office at approximately 3 weeks and 6 weeks after your surgery. INCISION CARE: If your incision is not draining you do NOT need to cover it with a dressing. Keep your incision clean, dry and intact. In most cases, we apply skin glue, juan miguel or sutures to the incision at the time of surgery. This will be like a crust or have the appearance of a scab and will fall off in time on its own. The stitches or juan miguel need to be removed at 3 weeks post op appointment. You may begin to shower 3 days after surgery (this allows the glue to lópez well). However, please avoid scrubbing the incision site or peeling off any of the skin glue. This will ensure optimal healing of your incision. Also, during this time avoid soaking the incision area in water - this includes swimming pools, hot tubs or baths. No ointments, lotions or oils on the incision until your surgeon allows. Leave juan miguel, sutures or glue in place. Neurological dysfunction that comes on suddenly can also be a sign of a stroke. Below some common symptoms of a stroke are listed: B - balance difficulty such as sudden onset walking or leaning to one side - NEW E - eye problem such as sudden double vision or trouble seeing on one side - NEW F - Facial weakness or numbness on one side - NEW A - Arm or leg weakness or numbness on one side - NEW S - Slurred speech or difficulty with word finding - NEW T - Time is BRAIN! Call 911 as soon as you recognize these symptoms Diet: Consume a regular diet rich in vegetables and lean protein such as chicken or fish. You should consume in a ratio of approximately 20% fats|40% carbohydrates|40%protein. Vegetables, sweet potatoes, brown rice or quinoa are examples of good carbohydrates. Chips, white bread, cookies and sweets/sugar are examples of bad carbohydrates. Limit your bad carbs, go wild with good carbs. "Life's Simple 7" Guidelines as per [place] [employer] These will help you reclaim your life after surgery and signal helper in your recovery, keeping in mind your restrictions. (1) Get Active. Physical activity can help people lose weight, control high blood pressure and cholesterol, feel emotionally better, and sleep better. (2) Control Cholesterol. Avoid a diet high in saturated fat, trans fat, & cholesterol. Limit whole milk & cream, ice cream, butter, egg yolks, processed meats (like sausage and hot dogs), and fatty meats. Choose healthy foods that are low in saturated fat, trans fat and cholesterol which include: Fruits and vegetables, fiber rich grain products (like whole grain pasta and brown rice), lean meat such as chicken, fish, nuts, seeds, and legumes. (3) Eat Better. Eat small portions. Shop at the grocery with a list and do not stray from it. Tips for a healthy diet include: Limit sodium intake to less than 1500mg daily, avoid prepackaged, processed, and fast foods, choose a diet rich in fruits, vegetables, and whole grain, high fiber foods, and limit saturated & cholesterol in your diet. (4) Manage Blood Pressure. If you have high blood pressure, you should have a cuff at home so that you can check your blood pressure regularly. Be sure you have a good cuff. An arm one is generally better than a wrist one. Bring the c uff to a doctor's appointment to validate that the measurements that your cuff are taking are accurate. Take your blood pressure twice daily when you are sitting down and relaxing. Record the numbers in a log and bring this log with you to your doctors' appointments. (5) Lose Weight if your BMI is above 25. A healthy BMI is between 19-25. To calculate Your BMI, you may use a Standard BMI Calculator on the NIH BMI website: <www.nhlbi.nih.gov/guidelines/obesity/BMI/bmicalc.htm>. Weigh oneself daily. If you are overweight, set a goal to lose weight. A pound a week loss if needed is a good target. (6) Reduce Blood Sugar. Limit foods and liquids with "added sugars." (Added sugars include sucrose, fructose, glucose, maltose, dextrose, high fructose corn syrup, corn syrup, concentrated fruit juice and honey). (7) Stop Smoking. If you smoke, quitting smoking is one of the best things that you can do for your health. Smoking increases your risk of heart attack, stroke, and peripheral vascular disease, which is a build-up of plaque in your arteries. Please discard all the cigarettes and lighters in your house. Have a plan for what you will do when you have the urge to smoke. Direct and second- hand smoke shortens your life as well as the lives of your family, friends and others around you. For your health and the health of those around you, please consider quitting! Proper Bending Body Mechanics: Maintain a wide stance with one foot slightly in front of the other. Keep your back straight. Bend utilizing the strength in your hips and knees. Do not bend at the waist. Maintain the lifted object at your waist-level close to your body. Avoid lifting weight that causes immediately pain or pain anywhere in the body afterwards. Smoking/Nicotine If there was ever one thing that you could do to increase your overall health, decrease your risk of cardiovascular problems by about 39% the second you make the choice, it is to STOP SMOKING. Your body's most instant gratification is the second you stop smoking. We have all heard the studies, read the articles but it is true, smoking is extremely bad for your overall health, and moreover it is detrimental to your bone health. Nicotine, IN ANY FORM, kills bone cells, prevents your body from healing fractures, and significantly prolongs healing after surgery. In spine surgery specifically, it increases your risk of not healing your bones to create a fusion and increases your risk of having a revision surgery due to this up to 60%. I know it is hard. I know it feels impossible. But there are ways. Take control of your life. We are here to help you through it. And when you are ready, ask us and we can direct you to help if you desire. Use the START Plan to Quit Smoking (please visit the Helpguide.org website listed below for more information): S = Set a quit date. Choose a date within the next 2 weeks, so you have enough time to prepare without losing your motivation to quit. If you mainly smoke at work, quit on the weekend, so you have a few days to adjust to the change. T = Tell family, friends, and co-workers that you plan to quit. Let your friends and family in on your plan to quit smoking and tell them you need their support and encouragement to stop. Look for a quit bruna who wants to stop smoking as well. You can help each other get through the rough times. A = Anticipate and plan for the challenges you'll face while quitting. Most people who begin smoking again do so within the first 3 months. You can help yourself make it through by preparing ahead for common challenges, such as nicotine withdrawal and cigarette cravings. R = Remove cigarettes and other tobacco products from your home, car, and work. Throw away all your cigarettes (no emergency pack!), lighters, ashtrays, and matches. Wash your clothes and freshen up anything that smells like smoke. Shampoo your car, clean your drapes and carpet, and steam your furniture. T = Talk to your doctor about getting help to quit. Your doctor can prescribe medication to help with withdrawal and suggest other alternatives. If you can't see a doctor, you can get many products over the counter at your local pharmacy or grocery store, including the nicotine patch, nicotine lozenges, and nicotine gum. Resources for Quitting Smoking: <https://www.[place].gov/documents/[facility]/Quit_Tobacco_Resources_for_patients_313 480_7.pdf> Supplementation: Take recommended dosages of Vitamin D and Calcium to help fortify your bones and help them to heal. See your health maintenance packet for dosages and recommended levels. DVT/VTE prophylaxis: You will be given compression stockings from the hospital. Wear these daily for the first two weeks after surgery. You may take them off at night. You may be prescribed a medication to help thin your blood. Take this as directed. If you are not prescribed this medication, early and frequent ambulation has been shown to be the best prophylaxis to deep vein thrombosis and sequelae related to this event. Assessment: 1. L5-S1 large herniated nucleus pulposus 2. L5-S1 severe central and foraminal stenosis 3. Left lower extremity radiculopathy 4. Left lower extremity weakness with foot drop Procedures: 1. L5-S1 posteriolateral and interbody fusion combined minimally invasive 2. Insertion of biomechanical device L5-S1 3. L5-S1 non segmental instrumentation 4. Posterior Extradural Laminotomy or Laminectomy for Exploration/ Decompression of Neural Elements L5-S1 5. Use of intraoperative neuro monitoring 6. Interpretation of intraoperative fluoroscopy less than 1 hour Patient Condition at Discharge: Good Plan - Discharge Summary Discharge Rx Participant: Yes New Discharge Prescriptions: New Gabapentin 300 mg PO TID 3 Days #30 cap oxyCODONE-APAP 7.5-325MG [Percocet 7.5-325 mg] 1 tab PO Q6HR PRN #28 tab PRN Reason: Pain Cyclobenzaprine [Flexeril] 10 mg PO TID #30 tab cefaDROXiL [Duricef] 500 mg PO Q12HR 5 Days #10 cap Sennosides-Docusate Sodium [Senokot-S] 2 tab PO BID #20 tablet polyethylene glycoL 3350 [Miralax] 17 gm PO DAILY #1 packet Continue Albuterol Sulfate [Proair Hfa] 1 - 2 puff INHALATION Q4H PRN PRN Reason: Shortness Of Breath Loratadine [Claritin] 10 mg PO QAM Montelukast [Singulair] 10 mg PO QAM metFORMIN HCL [Glucophage] 500 mg PO QAM Budesonide [Pulmicort] 0.5 mg INHALATION DIRECTED PRN PRN Reason: Shortness Of Breath Gabapentin 300 mg PO BID Atorvastatin [Lipitor] 10 mg PO QAM Diclofenac Sodium [Voltaren] 75 mg PO DIRECTED Cyclobenzaprine [Flexeril] 10 mg PO DAILY PRN PRN Reason: Pain Hydrochlorothiazide [hydroCHLOROthiazide] 12.5 mg PO QAM Artificial Tears-Hypromellose [Artificial Tear Drops] 1 drops BOTH EYES DIRECTED Discharge Medication List Albuterol Sulfate [Proair Hfa] 1 - 2 puff INHALATION Q4H PRN 11/30/18 [History] Loratadine [Claritin] 10 mg PO QAM 11/30/18 [History] Montelukast [Singulair] 10 mg PO QAM 11/30/18 [History] metFORMIN HCL [Glucophage] 500 mg PO QAM 05/15/19 [History] Artificial Tears-Hypromellose [Artificial Tear Drops] 1 drops BOTH EYES DIRECTED 06/26/21 [History] Atorvastatin [Lipitor] 10 mg PO QAM 06/26/21 [History] Budesonide [Pulmicort] 0.5 mg INHALATION DIRECTED PRN 06/26/21 [History] Cyclobenzaprine [Flexeril] 10 mg PO DAILY PRN 06/26/21 [History] Diclofenac Sodium [Voltaren] 75 mg PO DIRECTED 06/26/21 [History] Gabapentin 300 mg PO BID 06/26/21 [History] Hydrochlorothiazide [hydroCHLOROthiazide] 12.5 mg PO QAM 06/26/21 [History] Cyclobenzaprine [Flexeril] 10 mg PO TID #30 tab 07/02/21 [Rx] Gabapentin 300 mg PO TID 3 Days #30 cap 07/02/21 [Rx] Sennosides-Docusate Sodium [Senokot-S] 2 tab PO BID #20 tablet 07/02/21 [Rx] cefaDROXiL [Duricef] 500 mg PO Q12HR 5 Days #10 cap 07/02/21 [Rx] oxyCODONE-APAP 7.5-325MG [Percocet 7.5-325 mg] 1 tab PO Q6HR PRN #28 tab 07/02/21 [Rx] polyethylene glycoL 3350 [Miralax] 17 gm PO DAILY #1 packet 07/02/21 [Rx] Follow up Appointment(s)/Referral(s): [facility] [NON-STAFF] - As Needed [facility] [NON-STAFF] - As Needed (LSO back brace) Activity/Diet/Wound Care/Special Instructions: Spine Discharge and Recovery Instructions Date of Surgery: 06/28/2021 Diagnosis: 1. L5-S1 large herniated nucleus pulposus 2. L5-S1 severe central and foraminal stenosis 3. Left lower extremity radiculopathy 4. Left lower extremity weakness with foot drop Procedure: 1. L5-S1 posteriolateral and interbody fusion combined minimally invasive 2. Insertion of biomechanical device L5-S1 3. L5-S1 non segmental instrumentation 4. Posterior Extradural Laminotomy or Laminectomy for Exploration/ Decompression of Neural Elements L5-S1 5. Use of intraoperative neuro monitoring 6. Interpretation of intraoperative fluoroscopy less than 1 hour Medications: See medication list All medication refills should be obtained through your primary care doctor or your clinic spine surgeon. Please discuss prescription refills at your follow up appointment. Do not call the hospital for medication refills. Dressing: Leave your dressing in place for a total of 5 days post operatively. Then you may remove your dressing and leave open to air. Keep the area clean and if not able to keep area clean, then cover with sterile gauze and tape. Showering: You may shower 3 days after your procedure allowing soap and water to run over incision. Do not scrub. Do not soak. Blot dry. Follow up: Please confirm a follow up appointment with your surgeon 3 weeks post operatively. Please make an appointment to follow up with your PCP in 1-2 weeks after surgery for evaluation 3 phase, 3-week plan POST OP WEEKS 1-3 1. Lifting/carrying/pushing/pulling limited to less than 5 pounds. 2. Do not sit for longer than 15 minutes at one time. Get up and walk around. Prolonged sitting is NOT advised. If you lay down, see if you can tolerate laying down on you front (belly side) 3. Walk for periods of 15 minutes = 1 mile but no longer; do it multiple times times each day. 4. Ice your low back after activity. POST OP WEEKS 3-6 1. Lifting limited to less than 20 pounds. 2. Do not sit for longer than 30 minutes at a time. Frequently change positions. Use a sit-to stand workstation or take frequent breaks from sitting if you have returned to work. 3. Walk for 30 minutes each day. If possible, do these three or more times a day POST OP WEEKS 6+ At your 6-week appointment we will give you a physical therapy referral to focus on a core stabilization and strengthening program. You should also work on leg & buttock strengthening, hamstring & quadriceps stretching, and continue a low impact aerobic activity program such as swimming, walking, or riding a stationary bicycle. During the initial 6 weeks after your surgery, you are at the highest risk of re-injuring your spine. You should generally avoid BLTs (bending, lifting and twisting combination motions) and follow the above guidelines to reduce the chance of reinjury. You can anticipate post op appointments in our office at approximately 3 weeks and 6 weeks after your surgery. INCISION CARE: If your incision is not draining you do NOT need to cover it with a dressing. Keep your incision clean, dry and intact. In most cases, we apply skin glue, juan miguel or sutures to the incision at the time of surgery. This will be like a crust or have the appearance of a scab and will fall off in time on its own. The stitches or juan miguel need to be removed at 3 weeks post op appointment. You may begin to shower 3 days after surgery (this allows the glue to lópez well). However, please avoid scrubbing the incision site or peeling off any of the skin glue. This will ensure optimal healing of your incision. Also, during this time avoid soaking the incision area in water - this includes swimming pools, hot tubs or baths. No ointments, lotions or oils on the incision until your surgeon allows. Leave juan miguel, sutures or glue in place. Neurological dysfunction that comes on suddenly can also be a sign of a stroke. Below some common symptoms of a stroke are listed: B - balance difficulty such as sudden onset walking or leaning to one side - NEW E - eye problem such as sudden double vision or trouble seeing on one side - NEW F - Facial weakness or numbness on one side - NEW A - Arm or leg weakness or numbness on one side - NEW S - Slurred speech or difficulty with word finding - NEW T - Time is BRAIN! Call 911 as soon as you recognize these symptoms Diet: Consume a regular diet rich in vegetables and lean protein such as chicken or fish. You should consume in a ratio of approximately 20% fats|40% carbohydrates|40%protein. Vegetables, sweet potatoes, brown rice or quinoa are examples of good carbohydrates. Chips, white bread, cookies and sweets/sugar are examples of bad carbohydrates. Limit your bad carbs, go wild with good carbs. "Life's Simple 7" Guidelines as per [place] [employer] These will help you reclaim your life after surgery and signal helper in your recovery, keeping in mind your restrictions. (1) Get Active. Physical activity can help people lose weight, control high blood pressure and cholesterol, feel emotionally better, and sleep better. (2) Control Cholesterol. Avoid a diet high in saturated fat, trans fat, & chol esterol. Limit whole milk & cream, ice cream, butter, egg yolks, processed meats (like sausage and hot dogs), and fatty meats. Choose healthy foods that are low in saturated fat, trans fat and cholesterol which include: Fruits and vegetables, fiber rich grain products (like whole grain pasta and brown rice), lean meat such as chicken, fish, nuts, seeds, and legumes. (3) Eat Better. Eat small portions. Shop at the grocery with a list and do not stray from it. Tips for a healthy diet include: Limit sodium intake to less than 1500mg daily, avoid prepackaged, processed, and fast foods, choose a diet rich in fruits, vegetables, and whole grain, high fiber foods, and limit saturated & cholesterol in your diet. (4) Manage Blood Pressure. If you have high blood pressure, you should have a cuff at home so that you can check your blood pressure regularly. Be sure you have a good cuff. An arm one is generally better than a wrist one. Bring the cuff to a doctor's appointment to validate that the measurements that your cuff are taking are accurate. Take your blood pressure twice daily when you are sitting down and relaxing. Record the numbers in a log and bring this log with you to your doctors' appointments. (5) Lose Weight if your BMI is above 25. A healthy BMI is between 19-25. To calculate Your BMI, you may use a Standard BMI Calculator on the NIH BMI websi te: <www.nhlbi.nih.gov/guidelines/obesity/BMI/bmicalc.htm>. Weigh oneself daily. If you are overweight, set a goal to lose weight. A pound a week loss if needed is a good target. (6) Reduce Blood Sugar. Limit foods and liquids with "added sugars." (Added sugars include sucrose, fructose, glucose, maltose, dextrose, high fructose corn syrup, corn syrup, concentrated fruit juice and honey). (7) Stop Smoking. If you smoke, quitting smoking is one of the best things that you can do for your health. Smoking increases your risk of heart attack, stroke, and peripheral vascular disease, which is a build-up of plaque in your arteries. Please discard all the cigarettes and lighters in your house. Have a plan for what you will do when you have the urge to smoke. Direct and second-hand smoke shortens your life as well as the lives of your family, friends and others around you. For your health and the health of those around you, please consider quitting! Proper Bending Body Mechanics: Maintain a wide stance with one foot slightly in front of the other. Keep your back straight. Bend utilizing the strength in your hips and knees. Do not bend at the waist. Maintain the lifted object at your waist-level close to your body. Avoid lifting weight that causes immediately pain or pain anywhere in the body afterwards. Smoking/Nicotine If there was ever one thing that you could do to increase your overall health, decrease your risk of cardiovascular problems by about 39% the second you make the choice, it is to STOP SMOKING. Your body's most instant gratification is the second you stop smoking. We have all heard the studies, read the articles but it is true, smoking is extremely bad for your overall health, and moreover it is detrimental to your bone health. Nicotine, IN ANY FORM, kills bone cells, prevents your body from healing fractures, and significantly prolongs healing after surgery. In spine surgery specifically, it increases your risk of not healing your bones to create a fusion and increases your risk of having a revision surgery due to this up to 60%. I know it is hard. I know it feels impossible. But there are ways. Take control of your life. We are here to help you through it. And when you are ready, ask us and we can direct you to help if you desire. Use the START Plan to Quit Smoking (please visit the [employer]org website listed below for more information): S = Set a quit date. Choose a date within the next 2 weeks, so you have enough time to prepare without losing your motivation to quit. If you mainly smoke at work, quit on the weekend, so you have a few days to adjust to the change. T = Tell family, friends, and co-workers that you plan to quit. Let your friends and family in on your plan to quit smoking and tell them you need their support and encouragement to stop. Look for a quit bruan who wants to stop smoking as well. You can help each other get through the rough times. A = Anticipate and plan for the challenges you'll face while quitting. Most people who begin smoking again do so within the first 3 months. You can help yourself make it through by preparing ahead for common challenges, such as nicotine withdrawal and cigarette cravings. R = Remove cigarettes and other tobacco products from your home, car, and work. Throw away all your cigarettes (no emergency pack!), lighters, ashtrays, and matches. Wash your clothes and freshen up anything that smells like smoke. Shampoo your car, clean your drapes and carpet, and steam your furniture. T = Talk to your doctor about getting help to quit. Your doctor can prescribe medication to help with withdrawal and suggest other alternatives. If you can't see a doctor, you can get many products over the counter at your local pharmacy or grocery store, including the nicotine patch, nicotine lozenges, and nicotine gum. Resources for Quitting Smoking: <https://www.[place].gov/documents/[facility]/Quit_Tobacco_Resources_for_patients_313 480_7.pdf> Supplementation: Take recommended dosages of Vitamin D and Calcium to help fortify your bones and help them to heal. See your health maintenance packet for dosages and recommended levels. DVT/VTE prophylaxis: You will be given compression stockings from the hospital. Wear these daily for the first two weeks after surgery. You may take them off at night. You may be prescribed a medication to help thin your blood. Take this as directed. If you are not prescribed this medication, early and frequent ambulation has been shown to be the best prophylaxis to deep vein thrombosis and sequelae related to this event. Discharge Disposition: HOME WITH HOME HEALTH SERVICES
--- NOTE | 2021-07-02 08:42 | P.PN ---
Subjective Progress Note Date: 07/02/21 Principal diagnosis: 1. L5-S1 large herniated nucleus pulposus 2. L5-S1 severe central and foraminal stenosis 3. Left lower extremity radiculopathy 4. Left lower extremity weakness with foot drop Patient was seen at bedside this morning resting comfortably sitting up in chair with legs elevated. Patient says last night was her best night since surgery as far as pain goes. Patient says she has not had a bowel movement yet, however, she says she has been passing gas. Patient says she did drink some prune juice yesterday as well as has been drinking coffee. Patient says she has not had a lot to eat in the hospital, however, patient does feel that she'll be elevated eat more once at home which will help her have a bowel movement and she'll be more comfortable at home. Patient says she has walked around the room several times in the past couple days and feels pretty good doing it using a walker. Patient says she is still having some numbness/tingling down the left leg however, it is doing much better than it was before surgery. Patient says she does have a walker at home. Patient denies chest pain, fever, chest breath, nausea, vomiting, change in vision, loss of bowel/bladder control. Objective - Vital Signs Vital signs: Vital Signs Temp 98.3 F 07/02/21 07:26 Pulse 73 07/02/21 07:26 Resp 18 07/02/21 07:26 BP 103/69 07/02/21 07:26 Pulse Ox 96 07/02/21 07:26 Intake & Output 07/01/21 07/02/21 07/02/21 18:59 06:59 18:59 Intake Total 100 Balance 100 Intake: Intake, IV Titration 100 Amount ceFAZolin 2 gm In Sodium 100 Chloride 0.9% 50 ml @ 100 mls/hr IVPB Q8H [facility] Rx#: [id number] Other: Voiding Method Toilet # Voids 4 - Exam Incision is clean, dry, intact. Healing well. Sensation is equal, symmetric, bilaterally intact in upper extremities. Patient has some minimal tenderness to palpation along the incisions on the spine. Bilateral upper extremities 5/5 in all major motor groups. 3+/5 in dorsi and plantarflexion the left ankle. 5/5 in all other major motor groups in the bilateral lower extremities. Radial pulses intact, 2+ bilaterally. Cap refill under 3 seconds in digits of her extremities. Negative Homans bilaterally. - Labs CBC & Chem 7: 07/01/21 10:21 07/01/21 10:21 Labs: Abnormal Lab Results - Last 24 Hours (Table) 07/01/21 07/01/21 07/01/21 Range/Units 10:21 16:29 20:08 Carbon Dioxide 33 H (22-30) mmol/L POC Glucose (mg/dL) 104 H 116 H (75-99) mg/dL Total Protein 5.7 L (6.3-8.2) g/dL Albumin 3.1 L (3.5-5.0) g/dL 07/02/21 Range/Units 06:52 Carbon Dioxide (22-30) mmol/L POC Glucose (mg/dL) 102 H (75-99) mg/dL Total Protein (6.3-8.2) g/dL Albumin (3.5-5.0) g/dL Assessment and Plan Assessment: 1. L5-S1 large herniated nucleus pulposus 2. L5-S1 severe central and foraminal stenosis 3. Left lower extremity radiculopathy 4. Left lower extremity weakness with foot drop Postoperative day #4 status post: 1. L5-S1 posteriolateral and interbody fusion combined minimally invasive 2. Insertion of biomechanical device L5-S1 3. L5-S1 non segmental instrumentation 4. Posterior Extradural Laminotomy or Laminectomy for Exploration/ Decompression of Neural Elements L5-S1 5. Use of intraoperative neuro monitoring 6. Interpretation of intraoperative fluoroscopy less than 1 hour Plan: 1. L5-S1 large herniated nucleus pulposus; L5-S1 severe central and foraminal stenosis; Left lower extremity radiculopathy; Left lower extremity weakness with foot drop - surgery performed Saturday, for [id number] posterior lateral and interbody fusion combined minimally invasive; insertion of biomechanical device L5 to S1; L5-S1 nonsegmental agitation; posterior extradural laminotomy/laminectomy for exploration/decompression of neural elements L5-S1. Patient stable at bedside this morning. Plan for discharge home today 07/02/2021. 2. Appreciate medical management 3. Pain management - oxycodone; Flexeril; gabapentin 4. DVT prophylaxis - mechanical 5. GI prophylaxis - milk of magnesia; senna; MiraLAX 6. PT/OT - weightbearing as tolerated with walker 7. Discharge planning - discharge home today with health services Time with Patient: Less than 30
[2021-07-02 11:12] LABS: Glucose,Whole Blood 95 mg/dL (75-99)
--- NOTE | 2021-07-02 11:41 | P.PN ---
Subjective Progress Note Date: 07/02/21 HISTORY OF PRESENT ILLNESS This is a 66-year-old female patient of Dr. Fritz with past medical history of diabetes mellitus type 2, asthma moderate intermittent, hyperlipidemia, hyp ertension. Patient has history of chronic back pain had a fall in March of this year causing worsening pain as well as radiculopathy. Conservative management was attempted but was unable to control her pain. She is now brought into the hospital under the care of Dr. Betancourt status post MIS L5-S1 decompression and fusion, postop day #1. Patient states she has some numbness to the left knee to toe with tingling. She was up to the commode chair with help had increasing pain. She denies having any chest pain. She denies shortness of breath. Patient is complaining of significant back pain this morning which she states worsened after she got up to the commode chair. 06/30: Patient is postop day #2. She states that she is having more pain but is tolerable. She is happy that she is able to have more movement of her left leg. She denies having any fever or chills. Patient is complaining of constipation for which medications adjusted. Temperature max 100.1. Heart rate 91, blood pressure 134/85, pulse ox 97% on room air. Capillary blood glucose running between 94 and 120. Orthopedics has ordered LSO brace and discharge plan is for home with home care in the next 24 hours. 07/01: date 3 post surgery, pain is better control, patient be switched to oral medication on the patient is able to get out of bed at this point doing slightly but better blood pressure is stable patient as well as manage hemodynamically. Blood sugars running below 100, patient is appetite is doing well. Apparently patient be going home tomorrow. 07/02: Patient is doing very well should be going home today her pain and pain management is much better still have slight dropping foot the left side, patient has a back brace and leg brace were ordered by orthopedic she is to wear them at this point, her pain management is doing well so far, continue to have mild constipation was encouraged to do MiraLAX along with stool softener at home. REVIEW OF SYSTEMS Constitutional: No fever, no chills, no night sweats. No weight change. No weakness, fatigue or lethargy. No daytime sleepiness. EENT: No headache. No blurred vision or double vision, no loss of vision. No loss of Hearing, no ringing in the ears, no dizziness. No nasal drainage or congestion. No epistaxis. No sore throat. Lungs: No shortness of breath, cough, no sputum production. No wheezing. Cardiovascular: No chest pain, no lower extremity edema. No palpitations. No paroxysmal nocturnal dyspnea. No orthopnea. No lightheadedness or dizziness. No syncopal episodes. Abdominal: No abdominal pain. No nausea, vomiting. No diarrhea. Reports constipation. No bloody or tarry stools. No loss of appetite. Genitourinary: No dysuria, increased frequency, urgency. No urinary retention. Musculoskeletal: No myalgias. No muscle weakness, no gait dysfunction, no frequent falls. Reports lumbar back discomfort. No neck pain. Integumentary: No wounds, no lesions. No rash or pruritus. No unusual bruising. No change in hair or nails. Neurologic: No aphasia. No facial droop. No change in mentation. No head injury. No headache. No paralysis. No paresthesia. Psychiatric: No depression. No anxiety. No mood swings. Endocrine: No abnormal blood sugars. No weight change. No excessive sweating or thirst. No cold intolerance. PHYSICAL EXAMINATION Gen: This is a 66-year-old female. Patient is resting in bed and appears to be comfortable and in no acute distress. HEENT: Head is atraumatic, normocephalic. Pupils equal, round. Sclerae is anicteric. NECK: Supple. No JVD. No lymphadenopathy. No thyromegaly. LUNGS: Clear to auscultation. No wheezes or rhonchi. No intercostal retractions. HEART: Regular rate and rhythm. No murmur. ABDOMEN: Soft. Bowel sounds are present. No masses. No tenderness. EXTREMITIES: No pedal edema. No calf tenderness. Dropfoot left side, range of motion improving. NEUROLOGICAL: Patient is awake, alert and oriented x3. Cranial nerves 2 through 12 are grossly intact. ASSESSMENT AND PLAN 1. Lumbar back pain and lower extremity radiculopathy and weakness secondary to L5-S1 herniated nucleus pulposis, central and foraminal stenosis s/p MIS L5-S1 decompression and fusion, 06/28. Has done well with pain management and physical therapy continue to have slight dropping foot require brace. 2. Diabetes mellitus type 2. Continue patient on metformin 500 mg daily, NovoLog scale before meals and at bedtime.blood sugars range below 100. Sugars well controlled continue home meds as before surgery. 3. Moderate intermittent asthma without exacerbation. Continue Pulmicort 0.5 m g twice daily, Claritin 10 mg in the morning, Singulair 10 mg daily.still on rescue Ventolin HFA as needed. 4. Hyperlipidemia. Continue Lipitor 10 mg daily. 5. Hypertension. Continue hydrochlorothiazide 12.5 mg daily. 6 chronic pain syndrome: On oral hydrocodone only. 7 left-sided dropping foot: Better than before continue to wear her brace for now and hopefully in the next few weeks will improve. Discharge planning: Going home today to follow up in the office in one week. Objective - Vital Signs Vital signs: Vital Signs Temp 98.3 F 07/02/21 07:26 Pulse 73 07/02/21 07:26 Resp 18 07/02/21 07:26 BP 103/69 07/02/21 07:26 Pulse Ox 96 07/02/21 07:26 Intake & Output 07/01/21 07/02/21 07/02/21 18:59 06:59 18:59 Intake Total 100 Balance 100 Intake: Intake, IV Titration 100 Amount ceFAZolin 2 gm In Sodium 100 Chloride 0.9% 50 ml @ 100 mls/hr IVPB Q8H [facility] Rx#: [id number] Other: Voiding Method Toilet # Voids 4 - Labs CBC & Chem 7: 07/01/21 10:21 07/01/21 10:21 Labs: Abnormal Lab Results - Last 24 Hours (Table) 07/01/21 07/01/21 07/02/21 Range/Units 16:29 20:08 06:52 POC Glucose (mg/dL) 104 H 116 H 102 H (75-99) mg/dL
== END 2021-07-02 13:50 | disposition home health service (06) | DRG 455 ==
LOC: OR 10:12 → 4SSUR 18:07 → OR 06-29 07:59 → 4SSUR 06-29 08:09 → OBSVTOIN 07-01 11:00
PROVIDERS: ADMIT Orthopaedic Surgery; ATTEND Orthopaedic Surgery
PROC: 0SG3071 Fusion of Lumbosacral Joint with Autologous Tissue Substitute, Posterior Approach, Posterior Column, Open Approach (ICD-10-PCS; 2021-06-28)
PROC: 0SB40ZZ Excision of Lumbosacral Disc, Open Approach (ICD-10-PCS; 2021-06-28)
PROC: 00NY0ZZ Release Lumbar Spinal Cord, Open Approach (ICD-10-PCS; 2021-06-28)
PROC: 01NB0ZZ Release Lumbar Nerve, Open Approach (ICD-10-PCS; 2021-06-28)
PROC: 01NR0ZZ Release Sacral Nerve, Open Approach (ICD-10-PCS; 2021-06-28)
PROC: 0SH Lower Joints, Insertion (ICD-10-PCS; 2021-06-28)
PROC: 4A11X4G Monitoring of Peripheral Nervous Electrical Activity, Intraoperative, External Approach (ICD-10-PCS; 2021-06-28)
PROC: 8E0WXBG Computer Assisted Procedure of Trunk Region, With Computerized Tomography (ICD-10-PCS; 2021-06-28)
PROC: 0SG30AJ Fusion of Lumbosacral Joint with Interbody Fusion Device, Posterior Approach, Anterior Column, Open Approach (ICD-10-PCS; principal; 2021-06-28 12:00)
DX: M48.07 Spinal stenosis, lumbosacral region (principal); M43.16 Spondylolisthesis, lumbar region; M51.16 Intervertebral disc disorders with radiculopathy, lumbar region; M47.26 Other spondylosis with radiculopathy, lumbar region; E78.5 Hyperlipidemia, unspecified; G89.4 Chronic pain syndrome; I10 Essential (primary) hypertension; J45.20 Mild intermittent asthma, uncomplicated; E11.42 Type 2 diabetes mellitus with diabetic polyneuropathy; M19.90 Unspecified osteoarthritis, unspecified site; J44.9 Chronic obstructive pulmonary disease, unspecified; K59.00 Constipation, unspecified; M21.372 Foot drop, left foot; M79.7 Fibromyalgia; K58.9 Irritable bowel syndrome, unspecified; Z68.29 Body mass index [BMI] 29.0-29.9, adult; Z80.0 Family history of malignant neoplasm of digestive organs; Z79.899 Other long term (current) drug therapy; Z79.84 Long term (current) use of oral hypoglycemic drugs; Z82.49 Family history of ischemic heart disease and other diseases of the circulatory system; Z80.3 Family history of malignant neoplasm of breast; Z82.5 Family history of asthma and other chronic lower respiratory diseases; Z83.3 Family history of diabetes mellitus; Z87.01 Personal history of pneumonia (recurrent); Z87.891 Personal history of nicotine dependence; Z91.81 History of falling; Z98.1 Arthrodesis status; Z88.5 Allergy status to narcotic agent; Z98.49 Cataract extraction status, unspecified eye
CPT/HCPCS: 36415; 72100; 72131; 80048; 80053; 85025; 85027; 86850; 86900; 86901; 94640

== ENCOUNTER → 2022-02-22 | Outpatient (CLI) | payer MEDICARE, OTHER ==
[2022-02-22 11:32] VITALS: BP 149/80; PULSE 83; RESP 18; TEMP 98
--- NOTE | 2022-02-22 14:45 | P.PAINPG ---
PQRS Measure Charge Sheet Comment: HISTORY OF PRESENT ILLNESS: 66 yr old female w at side as a referral from Dr Betancourt presents today w severe and chronic L SI dysfunction secondary to L Sacroiliitis for evaluation. Pt states pain level is at 9/10 in intensity, constant, localized in the L tailbone region, sharp in character w shooting pain towards L buttocks and glutes. Pain is provoked by sitting for periods of 15 min or more. Pain is alleviated by medication (Lyrica, Mobic), heat, PT 6 weeks in July 2021, home exercise regimen as tolerated, use of a lumbar support brace, repositioning and rest. PMH: COPD, Diabetes Mellitus, Fibromyalgia, Hyperlipidemia, HTN, Pneumonia PSH: Section, Cataract Resection, L5-S1 fusion (2021) SH: Former tobacco user, No ETOH abuse, No illicit drug use FH: Fa- Unknown. Mo- Unknown. Sister- Breast CA. Sister- COPD. Brother- No Reported History. All: Codeine Meds: See list REVIEW OF ORGAN SYSTEMS: CONSTITUTIONAL: No fevers or chills. No recent weight loss. NEUROLOGICAL: + numbness and tingling along the distal extremities. No seizure disorders or headaches. MUSCULOSKELETAL: + pain PSYCHIATRIC: Denies current depression or suicidal thoughts. Physical Examinations : Constitutional : Cooperative , not in acute distress . Neurologic : Cranial nerve II to XII intact. No focal neurological deficits. Psychiatric : alert & oriented x 3. Matching mood & appropriate affect. Judgment & insight intact. Musculoskeletal : Cervical Spine Motor strength in the deltoid and biceps: Normal right side. Normal Left side Motor strength biceps and the wrist extensors: Normal right side . Normal left side Motor strength in the triceps muscle: Normal right side. Normal left side Deep tendon reflexes: Normal at the biceps. Normal at Brachioradialis. Normal at triceps Vertebral body tenderness to deep palpation over Cervical facet loading test: positive bilaterally Spurling test: positive bilaterally Neck distraction test: positive bilaterally Luz sign: positive bilaterally Lumbar spine Motor strength lower extremities ,thigh and legs 5/5 Right side , 5/5 Left side Deep tendon reflexes : Normal Knee Jerk. Normal Ankle Jerk Vertebral body tenderness over Lumbar facet Loading Test: positive Right / positive Left Range of motion of the lumbar spine Flexion 30 degrees, extension 10 degrees Straight Leg Raise test: Left/ Right positive at degree Angi test: positive right / positive left. Severe tenderness over the Sacroiliac joint on the Right / Left sides Gaenslen test: positive bilaterally Seated flexion test: positive bilaterally. Sacral spine : Severe tenderness over the Sacroiliac joint: right side / left side Range of motion: Flexion of the lumbar spine <60 degrees Range of motion: Extension of the lum bar spine <20 degrees Gaenslen's Test positive L Angi test: positive right side / left side L Thigh Thrust Test Sacral Thrust Test L side Imaging: MRI with and without contrast of the lumbar spine from 04/29/21 reviewed Assessment/ Plan : Left sacroiliitis Recommendation of L SI injection x2. May need a series, up to every 3 mo, for optimal pain relief. Risks, benefits of procedure discussed and patient verbalized understanding. Admits to aspirin or anti- coagulant use or medical history of diabetes. Protocol for discontinuation/ continuation of medications gary procedure discussed. All questions answered. I have spent greater than 30 minutes on patient care today. Dr Stark was available by phone for the evaluation of this patient. The time was used to review the medical records including relevant urine studies and Prescription history (MAPs), review of the available imaging, evaluation and examination of the patient, coordination of care with the medical staff and if applicable referring physicians, as well as creation of the medical record PQRS Narrative: Smoking Status Former smoker Home Medications: Ambulatory Orders Albuterol Sulfate [Proair Hfa] 1 - 2 puff INHALATION Q4H PRN 11/30/18 Loratadine [Claritin] 10 mg PO QAM 11/30/18 Montelukast [Singulair] 10 mg PO QAM 11/30/18 metFORMIN HCL [Glucophage] 500 mg PO QAM 05/15/19 Artificial Tears-Hypromellose [Artificial Tear Drops] 1 drops BOTH EYES DIRECTED 06/26/21 Atorvastatin [Lipitor] 10 mg PO QAM 06/26/21 Budesonide [Pulmicort] 0.5 mg INHALATION DIRECTED PRN 06/26/21 Cyclobenzaprine [Flexeril] 10 mg PO DAILY PRN 06/26/21 Diclofenac Sodium [Voltaren] 75 mg PO DIRECTED 06/26/21 Gabapentin 300 mg PO BID 06/26/21 hydroCHLOROthiazide 12.5 mg PO QAM 06/26/21 Cyclobenzaprine [Flexeril] 10 mg PO TID #30 tab 07/02/21 Gabapentin 300 mg PO TID 3 Days #30 cap 07/02/21 Sennosides-Docusate Sodium [Senokot-S] 2 tab PO BID #20 tablet 07/02/21 cefaDROXiL [Duricef] 500 mg PO Q12HR 5 Days #10 cap 07/02/21 oxyCODONE-APAP 7.5-325MG [Percocet 7.5-325 mg] 1 tab PO Q6HR PRN #28 tab 07/02/21 polyethylene glycoL 3350 [Miralax] 17 gm PO DAILY #1 packet 07/02/21 Controlled Substance Measures - Controlled Substance Measures Is patient prescribed a controlled substance at discharge?: No
== END ==
LOC: PNWHC3 10:42
PROVIDERS: ATTEND Specialist
DX: M46.1 Sacroiliitis, not elsewhere classified (principal); Z79.01 Long term (current) use of anticoagulants; E11.9 Type 2 diabetes mellitus without complications; J44.9 Chronic obstructive pulmonary disease, unspecified; E78.5 Hyperlipidemia, unspecified; I10 Essential (primary) hypertension; Z79.84 Long term (current) use of oral hypoglycemic drugs; Z88.5 Allergy status to narcotic agent; Z87.891 Personal history of nicotine dependence
CPT/HCPCS: 99211

== ENCOUNTER 2022-05-29 12:33 | Inpatient (IN) | payer MEDICARE, OTHER ==
--- NOTE | 2022-05-29 14:19 | ED ---
Skin/Abscess/FB HPI - General Source: patient, RN notes reviewed Mode of arrival: ambulatory Limitations: no limitations <Sherman Chandler - Last Filed: 05/29/22 14:17> - General Source: patient, family, RN notes reviewed Limitations: no limitations <Davonte Manuel - Last Filed: 05/29/22 16:12> - General Chief complaint: Skin/Abscess/Foreign Body Stated complaint: Recheck Time Seen by Provider: 05/29/22 14:17 - History of Present Illness Initial comments: 66-year-old female sent in by PCP for admission for dehydration, shingles. Patient was seen yesterday and was discharged. Patient had an increase in pain decreased oral intake. (Sherman Chandler) Patient is a pleasant 6-year-old female presenting to emergency department with concern for facial rash. Symptoms have progressed over the past 6 days. Patient is having discomfort. Patient is having difficulty swallowing. Patient has lesions in her mouth. Patient states her vision may be slightly blurry. Rash involves only the right side of the face. (Davonte Manuel) - Related Data Home Medications Medication Instructions Recorded Confirmed Albuterol Sulfate [Proair Hfa] 1 - 2 puff INHALATION RT-Q4H PRN 11/30/18 05/28/22 Loratadine [Claritin] 10 mg PO DAILY 11/30/18 05/28/22 Montelukast [Singulair] 10 mg PO HS 11/30/18 05/28/22 Atorvastatin [Lipitor] 10 mg PO DAILY 06/26/21 05/28/22 hydroCHLOROthiazide 12.5 mg PO QAM 06/26/21 05/28/22 Amoxic-Pot Clav 875-125Mg 1 tab PO BID 05/28/22 05/28/22 [Augmentin 875-125] Ketorolac [Toradol] 10 mg PO Q6HR PRN 05/28/22 05/28/22 Meloxicam [Mobic] 7.5 mg PO DAILY 05/28/22 05/28/22 Nystatin 100,000 Unit/ml Susp 5 ml PO QID 05/28/22 05/28/22 [Mycostatin Oral Susp] Pregabalin [Lyrica] 150 mg PO BID 05/28/22 05/28/22 Previous Rx's Medication Instructions Recorded Acyclovir [Zovirax] 800 mg PO 5XD 7 Days #350 ml 05/28/22 Allergies Allergy/AdvReac Type Severity Reaction Status Date / Time codeine Allergy Unknown Verified 05/28/22 11:44 Review of Systems ROS Other: All systems not noted in ROS Statement are negative. <Sherman Chandler - Last Filed: 05/29/22 14:17> ROS Other: All systems not noted in ROS Statement are negative. Constitutional: Denies: fever Eyes: Reports: as per HPI ENT: Reports: as per HPI Respiratory: Denies: cough Cardiovascular: Denies: chest pain Endocrine: Denies: fatigue Gastrointestinal: Denies: abdominal pain Genitourinary: Denies: dysuria Musculoskeletal: Denies: back pain Skin: Reports: as per HPI, rash <Davonte Manuel - Last Filed: 05/29/22 16:12> ROS Statement: Those systems with pertinent positive or pertinent negative responses have been documented in the HPI. Past Medical History Past Medical History: COPD, Diabetes Mellitus, Fibromyalgia, Hyperlipidemia, Hypertension, Pneumonia Additional Past Medical History / Comment(s): Bronchitis, NIDDM type II, neuropathy bilateral calves/feet, IBS, colitis, arthritis in neck/back with chronic pain, DDD, bilateral glaucoma, cataract in L eye, History of Any Multi-Drug Resistant Organisms: None Reported Past Surgical History: Back Surgery, Section Additional Past Surgical History / Comment(s): cataracts surgery Past Anesthesia/Blood Transfusion Reactions: No Reported Reaction Additional Past Anesthesia/Blood Transfusion Reaction / Comment(s): "Constipation after Anesthesia." Past Psychological History: No Psychological Hx Reported Smoking Status: Former smoker Past Alcohol Use History: Occasional Past Drug Use History: None Reported - Past Family History Sister(s) Family Medical History: Cancer Additional Family Medical History / Comment(s): Colon cancer. Brother(s) Additional Family Medical History / Comment(s): The patient is a total of 4 brothers and 2 in a fire. Father Family Medical History: Hyperlipidemia, Hypertension Additional Family Medical History / Comment(s): Both mother and father are d eceased with unknown medical issues. Mother Family Medical History: Diabetes Mellitus Additional Family Medical History / Comment(s): Pt was adopted. <Sherman Chandler - Last Filed: 05/29/22 14:17> General Exam Limitations: no limitations <Sherman Chandler - Last Filed: 05/29/22 14:17> Limitations: no limitations General appearance: alert Head exam: Present: atraumatic Eye exam: Present: normal appearance, other (Full movement of extraocular muscles and eyelids). Absent: conjunctival injection ENT exam: Present: other (Multiple lesions on the right side of the mouth including the tongue and palate) Neck exam: Present: normal inspection Respiratory exam: Present: normal lung sounds bilaterally Cardiovascular Exam: Present: regular rate, normal rhythm GI/Abdominal exam: Present: soft. Absent: tenderness Extremities exam: Present: normal inspection Neurological exam: Present: alert. Absent: motor sensory deficit Psychiatric exam: Present: normal affect, normal mood Skin exam: Present: rash (Right-sided facial erythema with multiple vesicular lesions) <Davonte Manuel - Last Filed: 05/29/22 16:12> Course Vital Signs 05/29/22 12:45 Temperature 98.9 F Pulse Rate 107 H Respiratory 18 Rate Blood Pressure 148/96 O2 Sat by Pulse 97 Oximetry Medical Decision Making <Davonte Manuel - Last Filed: 05/29/22 16:12> - Medical Decision Making Was pt. sent in by a medical professional or institution (, PA, [employer], urgent care, hospital, or [place] health care facility...) When possible be specific @ -Patient was sent in by Dr. Coello's office. Did you speak to anyone other than the patient for history (EMS, parent, family, police, friend...)? What history was obtained from this source @ -I did speak with practitioner Dr. Fritz's office will help provide history Did you review nursing and triage notes (agree or disagree)? Why? @ -I reviewed and agree with nursing and triage notes Were old charts reviewed (outside hosp., previous admission, EMS record, old EKG, old radiological studies, urgent care reports/EKG's, [place] health care facility records)? Report findings @ -No old charts were reviewed Differential Diagnosis (chest pain, altered mental status, abdominal pain women, abdominal pain men, vaginal bleeding, weakness, fever, dyspnea, syncope, headache, dizziness, GI bleed, back pain, seizure, CVA, palpatations, mental health)? @ -not applicable EKG interpreted by me (3pts min.). @ -As above X-rays interpreted by me (1pt min.). @ -None done CT interpreted by me (1pt min.). @ -None done U/S interpreted by me (1pt. min.). @ -None done What testing was considered but not performed or refused? (CT, X-rays, U/S, labs)? Why? @ -None What meds were considered but not given or refused? Why? @ -None Did you discuss the management of the patient with other professionals (professionals i.e. Dr., PA, [employer], lab, RT, psych nurse, social work professor, management psychologist, teacher, detention officer, counseling case manager)? Give summary @ -Case was discussed with practitioner May, who will admit covering with Dr. Covarrubias, who admits for Dr. Fritz. Was smoking cessation discussed for >3mins.? @ -No Was critical care preformed (if so, how long)? @ -No Were there social determinants of health that impacted care today? How? (Homelessness, low income, unemployed, alcoholism, drug addiction, transportation, low edu. Level, literacy, decrease access to med. care, usp, rehab)? @ -No Was there de-escalation of care discussed even if they declined (Discuss DNR or withdrawal of care, Hospice)? DNR status @ -No What co-morbidities impacted this encounter? (DM, HTN, Smoking, COPD, CAD, Cancer, CVA, ARF, Chemo, Hep., AIDS, mental health diagnosis, sleep apnea, morbid obesity)? @ -None Was patient admitted / discharged? Hospital course, mention meds given and r oute, prescriptions, significant lab abnormalities, going to OR and other pertinent info. @ -Patient be admitted for IV acyclovir and further consults including ophthalmology Undiagnosed new problem with uncertain prognosis? @ -No Drug Therapy requiring intensive monitoring for toxicity (Heparin, Nitro, Insulin, Cardizem)? @ -No Were any procedures done? @ -No Diagnosis/symptom? @ -[Herpes zoster Acute, or Chronic, or Acute on Chronic? @ -Acute Uncomplicated (without systemic symptoms) or Complicated (systemic symptoms)? @ -default Side effects of treatment? @ -No Exacerbation, Progression, or Severe Exacerbation? @ -No Poses a threat to life or bodily function? How? (Chest pain, [place], [place], pneumonia, PE, COPD, DKA, ARF, appy, cholecystitis, CVA, Diverticulitis, Homicidal, Suicidal, threat to staff... and all critical care pts) @ -No (Davonte Manuel) Disposition <Sherman Chandler - Last Filed: 05/29/22 14:17> Is patient prescribed a controlled substance at d/c from ED?: No Time of Disposition: 16:06 <Davonte Manuel - Last Filed: 05/29/22 16:12> Clinical Impression: Herpes zoster virus infection of face and ear nerves Disposition: ADMITTED IP TO THIS HOSP Condition: Serious Referrals: Kwame Fritz MD [Primary Care Provider] - 1-2 days
[2022-05-29] MEDS ORDERED: NALOXONE 0.4 MG/ML 1 ML VIAL IV PRN (16:07)
[2022-05-29] MEDS ORDERED: SALINE NASAL GEL 14.1 GM TUBE NASAL PRN (16:21)
[2022-05-29 16:57] LABS: ALT 30 U/L (4-34); AST 30 U/L (14-36); African American GFR (CKD) >90 (>60 ml/min/1.73 sqM); Albumin 4.5 g/dL (3.5-5.0); Alkaline Phosphatase 108 U/L (38-126); Anion Gap 10 mmol/L; Blood Urea Nitrogen 15 mg/dL (7-17); Calcium 9.7 mg/dL (8.4-10.2); Carbon Dioxide 26 mmol/L (22-30); Chloride 103 mmol/L (98-107); Glucose 128 mg/dL (74-99); Magnesium 2.2 mg/dL (1.6-2.3); Non-African American GFR(CKD) >90 (>60 ml/min/1.73 sqM); Potassium 4.4 mmol/L (3.5-5.1); Sodium 139 mmol/L (137-145); Total Bilirubin 0.7 mg/dL (0.2-1.3); Total Protein 7.7 g/dL (6.3-8.2)
[2022-05-29 17:01] LABS: Basophils % (A) 1 %; Eosinophils % (A) 0 %; HCT 42.5 % (34.0-46.0); HGB 14.8 gm/dL (11.4-16.0); Lymphocytes # (A) 0.7 k/uL (1.0-4.8); Lymphocytes % (A) 13 %; MCH 27.3 pg (25.0-35.0); MCHC 34.7 g/dL (31.0-37.0); MCV 78.5 fL (80.0-100.0); Mean Platelet Volume 7.9; Monocytes # (A) 0.3 k/uL (0-1.0); Monocytes % (A) 5 %; Neutrophils # (A) 3.9 k/uL (1.3-7.7); Neutrophils % (A) 77 %; Platelet Count 122 k/uL (150-450); RBC 5.41 m/uL (3.80-5.40); RDW 14.2 % (11.5-15.5)
[2022-05-29] MEDS: HYDROmorphone 1 MG/ML 1 ML SYRINGE IVP PRN ×2 (17:19→21:58)
[2022-05-29] MEDS: ACYCLOVIR SODIUM 650 MG in SODIUM CHLORIDE 0.9% 100 ML IV SCH (17:23)
[2022-05-29] MEDS: FAMOTIDINE 20 MG TAB PO SCH (21:46)
[2022-05-30] MEDS: ACYCLOVIR SODIUM 650 MG in SODIUM CHLORIDE 0.9% 100 ML IV SCH ×2 (00:16→08:20)
[2022-05-30] MEDS: HYDROmorphone 1 MG/ML 1 ML SYRINGE IVP PRN ×4 (01:20→19:34)
[2022-05-30] MEDS: FAMOTIDINE 20 MG TAB PO SCH ×2 (08:21→21:25)
[2022-05-30] MEDS: ONDANSETRON 4 MG/2 ML VIAL IVP PRN ×3 (09:33→21:25)
[2022-05-30 12:25] VITALS: BMI 36.8
--- NOTE | 2022-05-30 13:02 | P.CONS ---
History of Present Illness - Reason for Consult Consult date: 05/30/22 Herpes zoster Requesting physician: Davonte Manuel - Chief Complaint Right-sided facial swelling redness x few days - History of Present Illness Patient is a 66 -year-old female with a past medical history significant for diabetes mellitus hypertension hyperlipidemia fibromyalgia COPD started developing a rash on the right side of the face initially mostly sores in her right side of her mouth apparently symptoms started last for the patient was evaluated at [facility] and the patient was diagnosed with a fungal infection in the mall she was started on Augmentin subsequently evaluated at [facility] ER on Saturday patient was advised to continue with the Augmentin did prescribe nystatin swish and swallow along with Toradol, saravanan ent was seen at [facility] ER on 05/28/2022 with the patient was started on acyclovir and discharge home patient is presenting back to the hospital yesterday afternoon for evaluation of worsening rash discomfort and difficulty swallowing. Patient denies any fever or any chills and no fever had been recorded on presentation hospital however she did have a low-grade fever 100.2 this morning patient was complaining of rash to the right side of the face along with swelling describing the pain to be burning almost 11 out of 10 when she presented to the hospital yesterday however has slightly decreased intensity with the pain medication she has received she also have sores mostly on the right side of her mouth denies having any drainage she did have some difficulty swallowing but no difficulty breathing some nausea but no vomiting no abdominal pain or any diarrhea patient was started on IV acyclovir and infectious disease was consulted for further management Review of Systems Positive point has been mentioned in the HPI rest of the systems are negative Past Medical History Past Medical History: COPD, Diabetes Mellitus, Fibromyalgia, Hyperlipidemia, Hypertension, Pneumonia Additional Past Medical History / Comment(s): Bronchitis, NIDDM type II, neuropathy bilateral calves/feet, IBS, colitis, arthritis in neck/back with chronic pain, DDD, bilateral glaucoma, cataract in L eye, History of Any Multi-Drug Resistant Organisms: None Reported Past Surgical History: Back Surgery, Section Additional Past Surgical History / Comment(s): cataracts surgery Past Anesthesia/Blood Transfusion Reactions: No Reported Reaction Additional Past Anesthesia/Blood Transfusion Reaction / Comm: "Constipation after Anesthesia." Past Psychological History: No Psychological Hx Reported Additional Psychological History / Comment(s): Pt resides with her spouse. She uses a cane prn. She has a nebulizer and a glucometer. Smoking Status: Former smoker Past Alcohol Use History: Occasional Additional Past Alcohol Use History / Comment(s): Patient was a smoker one and a half packs per day for 15 years and quit in 1986. Pt states she and her spouse go out for dinner on Wednesdays and she will often have one [employer] ice tea. Past Drug Use History: None Reported - Past Family History Sister(s) Family Medical History: Cancer Additional Family Medical History / Comment(s): Colon cancer. Brother(s) Additional Family Medical History / Comment(s): The patient is a total of 4 brothers and 2 in a fire. Father Family Medical History: Hyperlipidemia, Hypertension Additional Family Medical History / Comment(s): Both mother and father are with unknown medical issues. Mother Family Medical History: Diabetes Mellitus Additional Family Medical History / Comment(s): Pt was adopted. Medications and Allergies Home Medications Medication Instructions Recorded Confirmed Type Albuterol Sulfate [Proair Hfa] 1 - 2 puff INHALATION RT-Q4H PRN 11/30/18 05/29/22 History Loratadine [Claritin] 10 mg PO DAILY 11/30/18 05/29/22 History Montelukast [Singulair] 10 mg PO HS 11/30/18 05/29/22 History Atorvastatin [Lipitor] 10 mg PO DAILY 06/26/21 05/29/22 History hydroCHLOROthiazide 12.5 mg PO DAILY 06/26/21 05/29/22 History Ketorolac [Toradol] 10 mg PO Q6HR PRN 05/28/22 05/29/22 History Meloxicam [Mobic] 7.5 mg PO DAILY 05/28/22 05/29/22 History Nystatin 100,000 Unit/ml Susp 5 ml PO QID 05/28/22 05/29/22 History [Mycostatin Oral Susp] Pregabalin [Lyrica] 150 mg PO BID 05/28/22 05/29/22 History oxyCODONE-APAP 7.5-325MG [Percocet 1 each PO Q6HR PRN 3 Days #12 tab 06/02/22 Rx 7.5-325 mg] valACYclovir HCL [Valtrex] 1,000 mg PO Q8HR #21 tablet 06/02/22 Rx Allergies Allergy/AdvReac Type Severity Reaction Status Date / Time codeine Allergy Unknown Verified 05/29/22 16:44 Physical Exam Vitals: Vital Signs Temp Pulse Pulse Resp BP BP Pulse Ox 05/30/22 09:15 100.2 F H 05/30/22 08:21 16 05/30/22 07:35 98.1 F 84 16 163/75 97 05/30/22 02:12 98.1 F 89 19 130/57 96 05/29/22 21:45 98.3 F 100 18 170/91 96 05/29/22 20:20 152/75 97 05/29/22 20:10 152/75 94 L 05/29/22 20:00 172/80 94 L 05/29/22 19:50 172/80 94 L 05/29/22 19:40 172/80 94 L 05/29/22 19:30 172/80 94 L 05/29/22 19:20 172/80 94 L 05/29/22 19:10 172/80 97 05/29/22 19:00 161/68 99 05/29/22 18:50 161/68 98 05/29/22 18:40 161/68 98 05/29/22 18:34 90 161/68 98 05/29/22 18:30 179/91 05/29/22 18:20 179/91 98 05/29/22 18:10 91 16 179/91 98 05/29/22 18:00 18 182/85 97 05/29/22 17:50 16 98 05/29/22 17:40 18 97 05/29/22 17:30 18 96 05/29/22 17:28 18 95 05/29/22 17:27 99.5 F 98 16 182/85 96 05/29/22 12:45 98.9 F 107 H 18 148/96 97 Intake and Output 05/29/22 05/30/22 05/30/22 22:59 06:59 14:59 Other: Voiding Method Toilet # Voids 2 Weight 81.647 kg 91.371 kg GENERAL DESCRIPTION: Elderly female lying in bed, no distress. No tachypnea or accessory muscle of respiration use. HEENT: Shows Pallor , no scleral icterus. Oral mucous membrane is dry. Patient did have a involvement of the right side hard palate with ulcerative rash NECK: Trachea central, no thyromegaly. LUNGS: Unlabored breathing. Clear to auscultation anteriorly. No wheeze or crac kle. HEART: S1, S2, regular rate and rhythm. No loud murmur ABDOMEN: Soft, no tenderness , guarding or rigidity, no organomegaly EXTREMITIES: No edema of feet. SKIN: Right-sided facial especially involving the maxillary area with rash and erythema NEUROLOGICAL: The patient is awake, alert, oriented x3, mood and affect normal. Results CBC & Chem 7: 06/02/22 05:27 06/02/22 05:27 Labs: Abnormal Lab Results - Last 24 Hours (Table) 05/29/22 05/29/22 Range/Units 16:19 16:19 RBC 5.41 H (3.80-5.40) m/uL MCV 78.5 L (80.0-100.0) fL Plt Count 122 L (150-450) k/uL Lymphocytes # 0.7 L (1.0-4.8) k/uL Glucose 128 H (74-99) mg/dL Assessment and Plan (1) Herpes zoster virus infection of face and ear nerves Status: Acute Code(s): B02.29 - OTHER POSTHERPETIC NERVOUS SYSTEM INVOLVEMENT SNOMED Code(s): 7154371 Plan: 1patient presenting to the Hospital with extensive shingles involving the maxillary division of trigeminal nerve , failing outpatient oral acyclovir therapy currently with no evidence of any secondary cellulitis 2-we will increase the dose of acyclovir to 800 mg to take every 8 hour along with gentle hydration 3no need for systemic antibiotic therapy at this point We will follow on clinical condition and cultures to further adjust medication if needed Thank you for this consultation will follow this patient with you Time with Patient: Greater than 30
[2022-05-30] MEDS: SODIUM CHLORIDE 0.9% 1,000 ML IV SCH ×2 (14:00→21:27)
[2022-05-30] MEDS: MAG HYDROX/AL HYDROX/SIMETH 30 ML, diphenhydrAMINE ELIXIR 75 MG, LIDOCAINE VISCOUS 2% 3... PO SCH ×9 (14:00→21:25)
--- NOTE | 2022-05-30 14:50 | P.HPIM ---
History of Present Illness H&P Date: 05/30/22 This is a 66-year-old female who presented to the emergency department after being sent by primary care provider Dr. Fritz for a rash that has been worsening on the face. Patient was initially started on oral Augmentin in the outpatient setting although the rash became significantly worse and also having decreased oral intake due to the mouth sores causing immense pain and weakness. Patient has past medical history of COPD, diabetes mellitus, fibromyalgia, hyperlipidemia, hypertension, neuropathy, IBS, colitis, arthritis with chronic back pain and degenerative disc disease with bilateral glaucoma and cataract in the left eye. Patient denies any further smoking as she used to smoke occas ionally drinks alcohol and denies any other illicit drug use. Labs reviewed reveal WBC of 5.0, hemoglobin is 14.8, platelets 122, sodium 139, potassium 4.4, BUN 15, creatinine 0.62, magnesium 2.2. Patient was admitted for right sided facial rashdue to herpes zoster with infectious disease placed on consult. Review Of Systems: Constitutional: No fever, no chills, no night sweats. No weight change. No weakness, fatigue or lethargy. No daytime sleepiness. EENT: No headache. No blurred vision or double vision, no loss of vision. No loss of Hearing, no ringing in the ears, no dizziness. No nasal drainage or congestion. No epistaxis. No sore throat. Lungs: No shortness of breath, cough, no sputum production. No wheezing. Cardiovascular: No chest pain, no lower extremity edema. No palpitations. No paroxysmal nocturnal dyspnea. No orthopnea. No lightheadedness or dizziness. No syncopal episodes. Abdominal: No abdominal pain. No nausea, vomiting. No diarrhea. No constipation. No bloody or tarry stools.. No loss of appetite. Genitourinary: No dysuria, increased frequency, urgency. No urinary retention. Musculoskeletal: No myalgias. No muscle weakness, no gait dysfunction, no frequent falls. No back pain. No neck pain. Integumentary: No wounds,reports multiple lesions in the mouth and on the right side of the face. No rash or pruritus. No unusual bruising. No change in hair or nails. Neurologic: No aphasia. No facial droop. No change in mentation. No head injury. No headache. No paralysis. No paresthesia. Psychiatric: No depression. No anxiety. No mood swings. Endocrine: No abnormal blood sugars. No weight change. No excessive sweating or thirst. No cold intolerance. PHYSICAL EXAMINATION: GENERAL: The patient is alert and oriented x4, Well developed, well nourished. Obese HEENT: Pupils are round and equally reacting to light. EOMI. no scleral icterus. No conjunctival pallor. Normocephalic, atraumatic. No pharyngeal erythema. No thyromegaly. CARDIOVASCULAR: S1 and S2 muffled PULMONARY: diminished breath sounds bilaterally with no wheezing or rhonchi noted. ABDOMEN: soft. Nontender on exam. obese. non-distended, normoactive bowel sounds. No palpable organomegaly. MUSCULOSKELETAL: No joint swelling or deformity. EXTREMITIES: No cyanosis, clubbing, or pedal edema. NEUROLOGICAL: Gross neurological examination did not reveal any focal deficits. Diffuse weakness SKIN Multiple pustules/ herpetic lesions noted on the right side of the face as well as on the tongue and upper palate as well as some redness and irritation n oted in the hairline as well Assessment: Herpes zoster with right facial and trigeminal nerve involvement Multiple herpetic lesions noted on the tongue as well as upper palate secondary to above COPD history, not in exacerbation Diabetes mellitus, type II, [id number] History of fibromyalgia Hyperlipidemia hypertension History of chronic back pain with degenerative disc disease Obesity with a body mass index of 36.8 GI prophylaxis DVT prophylaxis Full code Plan: Recommend to continue with current medications and management with infectious disease following. Patient started on acyclovir for facial shingles with failure of outpatient therapy. Patient has been at multiple ERs with continuing rash and worsening pain and yesterday was in the ER and started on Valtrex and sent home although pain became increasingly worse and patient was extremely fearful she was not able to tolerate oral intake and having difficulty with swallowing due to the pain. Patient started on IV acyclovir with infectious disease following and will continue on increased dose and monitor closely Patient is a diabetic [id number] although will continue Accu-Cheks and sliding scale hospitalized Will add gabapentin for nerve pain Encouraged increased activity as tolerated as patient is reporting weakness and will have PT/OT evaluate the patient Recommend using cools solution to assist with oral intake The impression and plan of care has been dictated by Ilana Yin, nurse practitioner as directed. Dr. Blanca MD I have performed a history and examination and MDM of this patient, discussed the same with the dictator, and agree with the dictator's assessment and plan as written ,documented as a scribe. Based on total visit time, I have performed more than 50% of the visit. Any additional findings or plans will be noted. Past Medical History Past Medical History: COPD, Diabetes Mellitus, Fibromyalgia, Hyperlipidemia, Hypertension, Pneumonia Additional Past Medical History / Comment(s): Bronchitis, NIDDM type II, neuropathy bilateral calves/feet, IBS, colitis, arthritis in neck/back with chronic pain, DDD, bilateral glaucoma, cataract in L eye, History of Any Multi-Drug Resistant Organisms: None Reported Past Surgical History: Back Surgery, Section Additional Past Surgical History / Comment(s): cataracts surgery Past Anesthesia/Blood Transfusion Reactions: No Reported Reaction Additional Past Anesthesia/Blood Transfusion Reaction / Comment(s): "Constipation after Anesthesia." Past Psychological History: No Psychological Hx Reported Additional Psychological History / Comment(s): Pt resides with her spouse. She uses a cane prn. She has a nebulizer and a glucometer. Smoking Status: Former smoker Past Alcohol Use History: Occasional Additional Past Alcohol Use History / Comment(s): Patient was a smoker one and a half packs per day for 15 years and quit in 1986. Pt states she and her spouse go out for dinner on Wednesdays and she will often have one [place] ice tea. Past Drug Use History: None Reported - Past Family History Sister(s) Family Medical History: Cancer Additional Family Medical History / Comment(s): Colon cancer. Brother(s) Additional Family Medical History / Comment(s): The patient is a total of 4 brothers and 2 in a fire. Father Family Medical History: Hyperlipidemia, Hypertension Additional Family Medical History / Comment(s): Both mother and father are with unknown medical issues. Mother Family Medical History: Diabetes Mellitus Additional Family Medical History / Comment(s): Pt was adopted. Medications and Allergies Home Medications Medication Instructions Recorded Confirmed Type Albuterol Sulfate [Proair Hfa] 1 - 2 puff INHALATION RT-Q4H PRN 11/30/18 History Loratadine [Claritin] 10 mg PO DAILY 11/30/18 05/29/22 History Montelukast [Singulair] 10 mg PO HS 11/30/18 05/29/22 History Atorvastatin [Lipitor] 10 mg PO DAILY 06/26/21 05/29/22 History hydroCHLOROthiazide 12.5 mg PO DAILY 06/26/21 05/29/22 History Acyclovir [Zovirax] 800 mg PO 5XD 7 Days #350 ml 05/28/22 05/29/22 Rx Amoxic-Pot Clav 875-125Mg 1 tab PO BID 05/28/22 05/29/22 History [Augmentin 875-125] Ketorolac [Toradol] 10 mg PO Q6HR PRN 05/28/22 05/29/22 History Meloxicam [Mobic] 7.5 mg PO DAILY 05/28/22 05/29/22 History Nystatin 100,000 Unit/ml Susp 5 ml PO QID 05/28/22 05/29/22 History [Mycostatin Oral Susp] Pregabalin [Lyrica] 150 mg PO BID 05/28/22 05/29/22 History Allergies Allergy/AdvReac Type Severity Reaction Status Date / Time codeine Allergy Unknown Verified 05/29/22 16:44 Physical Exam Vitals: Vital Signs Temp Pulse Pulse Resp BP BP Pulse Ox 05/30/22 09:15 100.2 F H 05/30/22 07:35 98.1 F 84 16 163/75 97 05/30/22 02:12 98.1 F 89 19 130/57 96 05/29/22 21:45 98.3 F 100 18 170/91 96 05/29/22 20:20 152/75 97 05/29/22 20:10 152/75 94 L 05/29/22 20:00 172/80 94 L 05/29/22 19:50 172/80 94 L 05/29/22 19:40 172/80 94 L 05/29/22 19:30 172/80 94 L 05/29/22 19:20 172/80 94 L 05/29/22 19:10 172/80 97 05/29/22 19:00 161/68 99 05/29/22 18:50 161/68 98 05/29/22 18:40 161/68 98 05/29/22 18:34 90 161/68 98 05/29/22 18:30 179/91 05/29/22 18:20 179/91 98 05/29/22 18:10 91 16 179/91 98 05/29/22 18:00 18 182/85 97 05/29/22 17:50 16 98 05/29/22 17:40 18 97 05/29/22 17:30 18 96 05/29/22 17:28 18 95 05/29/22 17:27 99.5 F 98 16 182/85 96 05/29/22 12:45 98.9 F 107 H 18 148/96 97 Intake and Output 05/29/22 05/30/22 05/30/22 22:59 06:59 14:59 Other: # Voids 2 Weight 81.647 kg Results CBC & Chem 7: 05/29/22 16:19 05/29/22 16:19 Labs: Abnormal Lab Results - Last 24 Hours (Table) 05/29/22 05/29/22 Range/Units 16:19 16:19 RBC 5.41 H (3.80-5.40) m/uL MCV 78.5 L (80.0-100.0) fL Plt Count 122 L (150-450) k/uL Lymphocytes # 0.7 L (1.0-4.8) k/uL Glucose 128 H (74-99) mg/dL Thrombosis Risk Factor Assmnt - DVT/VTE Prophylaxis DVT/VTE Prophylaxis: Pharmacologic Prophylaxis ordered - Choose All That Apply Each Factor Represents 1 point: Obesity (BMI >25) Each Risk Factor Represents 2 Points: Age 61-74 years Other congenital or acquired thrombophilia - If yes, enter type in comment: No Thrombosis Risk Factor Assessment Total Risk Factor Score: 3 Thrombosis Risk Factor Assessment Level: Moderate Risk Assessment and Plan Time with Patient: Greater than 30
[2022-05-30] MEDS: GABAPENTIN 100 MG CAP PO SCH ×2 (15:19→21:25)
[2022-05-30] MEDS: ACYCLOVIR SODIUM 800 MG in SODIUM CHLORIDE 0.9% 100 ML IV SCH ×2 (15:24→23:35)
[2022-05-30] MEDS ORDERED: ACYCLOVIR SODIUM 800 MG in SODIUM CHLORIDE 0.9% 100 ML IV SCH (16:00)
--- NOTE | 2022-05-30 23:12 | CONS ---
CONSULTATION HISTORY: This is a 66-year-old white female who was admitted to the hospital with a history of herpes zoster ophthalmicus and dehydration. The patient states that she notices her vision is slightly blurred in the right eye which is the same eye that has her current shingles infection. The patient was initially discharged and then readmitted to the hospital due to decreased oral intake. She states that her vision might be slightly blurry in the right eye though she is not sure. Previous ocular history was significant for bilateral cataract surgery and the diagnosis of chronic open-angle glaucoma for which she is taking eyedrops. The patient has been seen by Dr. Hurley in the past. PHYSICAL EXAMINATION: EYES: Visual acuity measured 20/30 OD and 20/25 OS. The pupils were equal and reactive to light. The lids were normal. There was significant periorbital swelling and pustules present in the right V1 and V2 dermatomes. There was a mild amount of swelling. The eyelids were easily open, however, and the lids on the right side were not swollen shut. Both conjunctiva were quiet with no evidence of inflammation on either side. The corneas were clear. There were no dendrites. The anterior chambers were well formed, irises were normal, and bilateral posterior chamber intraocular lenses were present. The remainder of the ophthalmic exam was otherwise unremarkable. IMPRESSION: 1. Herpes zoster ophthalmicus: I see no evidence of corneal involvement at this time. I recommend continuing oral antivirals and would advise the patient to follow up with her primary community midwife in 1 week's time for recheck of her right cornea. 2. Glaucoma. Continue on current topical drops. MMODL / IJN: [id number] /
[2022-05-30] MEDS: ACETAMINOPHEN TAB 325 MG TAB PO PRN (23:39)
[2022-05-31] MEDS: HYDROmorphone 0.5 MG/0.5 ML SYRINGE IVP PRN ×4 (00:42→14:48)
[2022-05-31] MEDS: SODIUM CHLORIDE 0.9% 1,000 ML IV SCH (00:42)
[2022-05-31] MEDS: ACETAMINOPHEN TAB 325 MG TAB PO PRN (07:46)
[2022-05-31] MEDS: ACYCLOVIR SODIUM 800 MG in SODIUM CHLORIDE 0.9% 100 ML IV SCH ×3 (08:15→23:38)
[2022-05-31] MEDS: GABAPENTIN 100 MG CAP PO SCH (08:16)
[2022-05-31] MEDS: MAG HYDROX/AL HYDROX/SIMETH 30 ML, diphenhydrAMINE ELIXIR 75 MG, LIDOCAINE VISCOUS 2% 3... PO SCH ×9 (08:16→21:11)
[2022-05-31] MEDS: FAMOTIDINE 20 MG TAB PO SCH ×2 (08:16→20:10)
[2022-05-31] MEDS ORDERED: HYDROcodone/APAP 5-325MG 1 EACH TAB PO PRN ×2 (10:18→16:04)
--- NOTE | 2022-05-31 14:48 | P.PN ---
Subjective Progress Note Date: 05/31/22 Principal diagnosis: Shingles Patient is a 66 -year-old female with a past medical history significant for diabetes mellitus hypertension hyperlipidemia fibromyalgia COPD started developing a rash on the right side of the face initially mostly sores in her right side of her mouth, patient been diagnosed with shingles without cellulitis failing outpatient therapy on today's evaluation that is 05/31/2022, the patient denies having any fever or chills patient denies having any new lesion on the right side the face or inside the mouth still complaining of pain with the pain medication last very short time no difficulty breathing no abdominal pain or diarrhea Objective - Vital Signs Vital signs: Vital Signs Temp 98.1 F 05/31/22 07:45 Pulse 80 05/31/22 07:45 Resp 20 05/31/22 07:45 BP 143/76 05/31/22 07:45 Pulse Ox 96 05/31/22 07:45 FiO2 Intake & Output 05/30/22 05/31/22 05/31/22 18:59 06:59 18:59 Weight 91.371 kg Other: Voiding Method Toilet Toilet # Voids 1 2 - Exam GENERAL DESCRIPTION: An elderly female lying in bed in no distress HEENT; right-sided facial rash in the maxillary distribution with no redness or drainage RESPIRATORY SYSTEM: Unlabored breathing , decreased breath sounds at bases HEART: S1 S2 regular rate and rhythm , ABDOMEN: Soft , no tenderness EXTREMITIES: No edema feet - Labs CBC & Chem 7: 05/29/22 16:19 05/29/22 16:19 Labs: Microbiology - Last 24 Hours (Table) 05/29/22 16:01 Blood Culture - Preliminary Blood No Growth after 24 hours 05/29/22 16:00 Blood Culture - Preliminary Blood No Growth after 24 hours Assessment and Plan (1) Herpes zoster virus infection of face and ear nerves Current Visit: Yes Status: Acute Code(s): B02.29 - OTHER POSTHERPETIC NERVOUS SYSTEM INVOLVEMENT SNOMED Code(s): 4499642 Plan: 1patient presenting to the Hospital with extensive shingles involving the maxillary division of trigeminal nerve , failing outpatient oral acyclovir therapy currently with no evidence of any secondary cellulitis 2-patient to continue with IV acyclovir 800 mg every 8 hour along with gentle hydration 3 advised to start the patient on Lyrica for better neuropathic pain control Time with Patient: Less than 30
[2022-05-31] MEDS: oxyCODONE-APAP 7.5-325MG 1 EACH TAB PO PRN ×2 (16:55→21:11)
[2022-05-31] MEDS: PREGABALIN 75 MG CAP PO SCH (20:10)
[2022-06-01] MEDS: oxyCODONE-APAP 7.5-325MG 1 EACH TAB PO PRN ×6 (02:03→23:49)
--- NOTE | 2022-06-01 05:43 | P.PN ---
Subjective Progress Note Date: 05/31/22 This is a 66-year-old female who presented to the emergency department after being sent by primary care provider Dr. Fritz for a rash that has been worsening on the face. Patient was initially started on oral Augmentin in the outpatient setting although the rash became significantly worse and also having decreased oral intake due to the mouth sores causing immense pain and weakness. Patient has past medical history of COPD, diabetes mellitus, fibromyalgia, hyperlipidemia, hypertension, neuropathy, IBS, colitis, arthritis with chronic back pain and degenerative disc disease with bilateral glaucoma and cataract in the left eye. Patient denies any further smoking as she used to smoke occasionally drinks alcohol and denies any other illicit drug use. Labs reviewed reveal WBC of 5.0, hemoglobin is 14.8, platelets 122, sodium 139, potassium 4.4, BUN 15, creatinine 0.62, magnesium 2.2. Patient was admitted for right sided facial rashdue to herpes zoster with infectious disease placed on consult. 05/31/2022 Patient is seen and evaluated in follow-up this morning reports some improvement although continues to report pain is only being managed briefly and the pain medications are wearing off. Patient was given IV Dilaudid and ineffective would recommend limiting IV narcotic use and will adjust oral pain medications. Patient was started on gabapentin without much relief and will resume Lyrica twice daily. Patient showing improvement and there is crusting and sloughing of the skin noted and continued discomfort. Oral mucosa significantly improved. Patient reports slightly improved oral intake and taking it slowly. Encouraged showering and avoiding scrubbing scalp aggressively as patient does have lesions noted on the right side of the hairline. Encouraged increased activity as tolerated. PHYSICAL EXAMINATION: GENERAL: The patient is alert and oriented x4, Well developed, well nourished. Obese HEENT: Pupils are round and equally reacting to light. EOMI. no scleral icterus. No conjunctival pallor. Normocephalic, atraumatic. No pharyngeal erythema. No thyromegaly. CARDIOVASCULAR: S1 and S2 muffled PULMONARY: diminished breath sounds bilaterally with no wheezing or rhonchi noted. ABDOMEN: soft. Nontender on exam. obese. non-distended, normoactive bowel sounds. No palpable organomegaly. MUSCULOSKELETAL: No joint swelling or deformity. EXTREMITIES: No cyanosis, clubbing, or pedal edema. NEUROLOGICAL: Gross neurological examination did not reveal any focal deficits. Diffuse weakness SKIN Multiple herpetic lesions noted on the right side of the face as well as on the tongue and upper palate as well as some improvement in redness and irritation noted in the hairline as well, oral mucosa significantly improved Assessment: Herpes zoster with right facial and trigeminal nerve involvement Multiple herpetic lesions noted on the tongue as well as upper palate secondary to above COPD history, not in exacerbation Diabetes mellitus, type II, [id number] History of fibromyalgia Hyperlipidemia hypertension History of chronic back pain with degenerative disc disease Obesity with a body mass index of 36.8 GI prophylaxis DVT prophylaxis Full code Plan: Recommend to continue with current medications and management with infectious disease following. Patient started on acyclovir for facial shingles with failure of outpatient therapy. Patient has been at multiple ERs with continuing rash and worsening pain and yesterday was in the ER and started on Valtrex and sent home although pain became increasingly worse and patient was extremely fearful she was not able to tolerate oral intake and having difficulty with swallowing due to the pain. Patient continued on IV acyclovir with infectious disease following and will continue on increased dose and monitor closely. Patient is having significant improvement in swelling and ulcerations or crusting. Patient continues to report pain with minimal improvement and would recommend limiting IV narcotics and will adjust medications. Patient reports she had taken Percocet in the past after back surgery which worked really well. Patient was started on gabapentin also not very effective and will resume her Lyrica for better pain control Patient is a diabetic [id number] although will continue Accu-Cheks and sliding scale hospitalized Recommend showering with no aggressive scrubbing to the scalp as patient does have lesions noted in that area. Patient reports increased itching on the left side of her head due to not showering for a few days while being here. Encour aged showering. Encouraged increased activity as tolerated Recommend using cools solution to assist with oral intake, which is improving and will continue for now lesions in the oral mucosa significantly improving. We'll continue to monitor closely with possible discharge in the next 24-48 hours. Will discuss further with infectious disease about duration of antivirals on discharge. The impression and plan of care has been dictated by Ilana Yin, nurse practitioner as directed. Dr. Blanca MD I have performed a history and examination and MDM of this patient, discussed t he same with the dictator, and agree with the dictator's assessment and plan as written ,documented as a scribe. Based on total visit time, I have performed more than 50% of the visit. Any additional findings or plans will be noted. Objective - Vital Signs Vital signs: Vital Signs Temp 98.1 F 05/31/22 14:00 Pulse 92 05/31/22 14:00 Resp 20 05/31/22 14:00 BP 140/61 05/31/22 14:00 Pulse Ox 95 05/31/22 14:00 FiO2 Intake & Output 05/30/22 05/31/22 05/31/22 18:59 06:59 18:59 Weight 91.371 kg Other: Voiding Method Toilet Toilet Toilet # Voids 1 2 - Labs CBC & Chem 7: 05/29/22 16:19 05/29/22 16:19 Labs: Microbiology - Last 24 Hours (Table) 05/29/22 16:01 Blood Culture - Preliminary Blood No Growth after 24 hours 05/29/22 16:00 Blood Culture - Preliminary Blood No Growth after 24 hours
[2022-06-01] MEDS: FAMOTIDINE 20 MG TAB PO SCH ×2 (08:57→20:41)
[2022-06-01] MEDS: MAG HYDROX/AL HYDROX/SIMETH 30 ML, diphenhydrAMINE ELIXIR 75 MG, LIDOCAINE VISCOUS 2% 3... PO SCH ×9 (08:57→23:46)
[2022-06-01] MEDS: ACYCLOVIR SODIUM 800 MG in SODIUM CHLORIDE 0.9% 100 ML IV SCH ×3 (08:57→23:45)
[2022-06-01] MEDS: PREGABALIN 75 MG CAP PO SCH ×2 (08:57→20:41)
--- NOTE | 2022-06-01 16:19 | P.PN ---
Subjective Progress Note Date: 06/01/22 Principal diagnosis: Shingles Patient is a 66 -year-old female with a past medical history significant for diabetes mellitus hypertension hyperlipidemia fibromyalgia COPD started developing a rash on the right side of the face initially mostly sores in her right side of her mouth, patient been diagnosed with shingles without cellulitis failing outpatient therapy on today's evaluation that is 06/01/2022, the patient remains to be afebrile, patient lesion on the right side the face or inside the mouth seems to be less painful no new lesion denies any difficulty swallowing no chest pain shortness of breath or cough Objective - Vital Signs Vital signs: Vital Signs Temp 98.4 F 06/01/22 11:37 Pulse 77 06/01/22 11:37 Resp 18 06/01/22 11:37 BP 151/82 06/01/22 11:37 Pulse Ox 96 06/01/22 11:37 FiO2 Intake & Output 05/31/22 06/01/22 06/01/22 18:59 06:59 18:59 Intake Total 830 Balance 830 Weight 91.371 kg Intake: Oral 830 Other: Voiding Method Toilet Toilet Toilet # Voids 3 2 1 - Exam GENERAL DESCRIPTION: An elderly female lying in bed in no distress HEENT; right-sided facial rash in the maxillary distribution with no redness or drainage RESPIRATORY SYSTEM: Unlabored breathing , decreased breath sounds at bases HEART: S1 S2 regular rate and rhythm , ABDOMEN: Soft , no tenderness EXTREMITIES: No edema feet - Labs CBC & Chem 7: 05/29/22 16:19 05/29/22 16:19 Labs: Microbiology - Last 24 Hours (Table) 05/29/22 16:01 Blood Culture - Preliminary Blood No Growth after 48 hours 05/29/22 16:00 Blood Culture - Preliminary Blood No Growth after 48 hours Assessment and Plan (1) Herpes zoster virus infection of face and ear nerves Current Visit: Yes Status: Acute Code(s): B02.29 - OTHER POSTHERPETIC NERVOUS SYSTEM INVOLVEMENT SNOMED Code(s): 6187669 Plan: 1patient presenting to the Hospital with extensive shingles involving the maxillary division of trigeminal nerve , failing outpatient oral acyclovir therapy currently with no evidence of any secondary cellulitis 2-patient seemed to have some subclinical improvement and will continue with IV acyclovir 800 mg every 8 hour along with Lyrica for better neuropathic pain control Time with Patient: Less than 30
[2022-06-01] MEDS: ALBUTEROL NEBULIZED 2.5 MG/3 ML INHALATION PRN (22:28)
[2022-06-02] MEDS: oxyCODONE-APAP 7.5-325MG 1 EACH TAB PO PRN ×3 (05:10→13:42)
--- NOTE | 2022-06-02 06:31 | P.PN ---
Subjective Progress Note Date: 06/01/22 This is a 66-year-old female who presented to the emergency department after being sent by primary care provider Dr. Fritz for a rash that has been worsening on the face. Patient was initially started on oral Augmentin in the outpatient setting although the rash became significantly worse and also having decreased oral intake due to the mouth sores causing immense pain and weakness. Patient has past medical history of COPD, diabetes mellitus, fibromyalgia, hyperlipidemia, hypertension, neuropathy, IBS, colitis, arthritis with chronic back pain and degenerative disc disease with bilateral glaucoma and cataract in the left eye. Patient denies any further smoking as she used to smoke occasionally drinks alcohol and denies any other illicit drug use. Labs reviewed reveal WBC of 5.0, hemoglobin is 14.8, platelets 122, sodium 139, potassium 4.4, BUN 15, creatinine 0.62, magnesium 2.2. Patient was admitted for right sided facial rashdue to herpes zoster with infectious disease placed on consult. 05/31/2022 Patient is seen and evaluated in follow-up this morning reports some improvement although continues to report pain is only being managed briefly and the pain medications are wearing off. Patient was given IV Dilaudid and ineffective would recommend limiting IV narcotic use and will adjust oral pain medications. Patient was started on gabapentin without much relief and will resume Lyrica twice daily. Patient showing improvement and there is crusting and sloughing of the skin noted and continued discomfort. Oral mucosa significantly improved. Patient reports slightly improved oral intake and taking it slowly. Encouraged showering and avoiding scrubbing scalp aggressively as patient does have lesions noted on the right side of the hairline. Encouraged increased activity as tolerated. 06/01/2022 Patient is seen in follow-up today reporting she is continuing to have some pain right side of her face although somewhat improved with the Percocet and Lyrica. Patient has not required IV pain medications. Patient is continued on acyclovir 3 times daily with infectious disease following. No evidence of surrounding cellulitis patient is significantly improving and having some improvement in her swelling. Patient continues to report difficulty with eating and tolerating recommending softer foods. Dietitian is following. Patient also with some weakness and working with physical therapy. Encouraged increase activity as tolerated. Patient is afebrile with no reports of shortness of breath or chest pain. Review of systems: Constitutional: No reports of fatigue, fever, or chills Cardiovascular: No reports of chest pain or palpitations Respiratory: No reports of shortness of breath or cough GI: No reports of nausea, vomiting, or diarrhea : No reports of dysuria or retention Neurovascular: reports of weakness All medications have been reviewed PHYSICAL EXAMINATION: GENERAL: The patient is alert and oriented x4, Well developed, well nourished. Obese HEENT: Pupils are round and equally reacting to light. EOMI. no scleral icterus. No conjunctival pallor. Normocephalic, atraumatic. No pharyngeal erythema. No thyromegaly. CARDIOVASCULAR: S1 and S2 muffled PULMONARY: diminished breath sounds bilaterally with no wheezing or rhonchi noted. ABDOMEN: soft. Nontender on exam. obese. non-distended, normoactive bowel sounds. No palpable organomegaly. MUSCULOSKELETAL: No joint swelling or deformity. EXTREMITIES: No cyanosis, clubbing, or pedal edema. NEUROLOGICAL: Gross neurological examination did not reveal any focal deficits. Diffuse weakness SKIN Multiple herpetic lesions noted on the right side of the face as well as on the tongue and upper palate as well as some improvement in redness and irritation noted in the hairline as well, oral mucosa significantly improved. Lesions improving and fading with some crusting and sloughing noted Assessment: Herpes zoster with right facial and trigeminal nerve involvement Multiple herpetic lesions noted on the tongue as well as upper palate secondary to above COPD history, not in exacerbation Diabetes mellitus, type II, [id number] History of fibromyalgia Hyperlipidemia hypertension History of chronic back pain with degenerative disc disease Obesity with a body mass index of 36.8 GI prophylaxis DVT prophylaxis Full code Plan: Recommend to continue with current medications and management with infectious disease following. Patient continued on acyclovir for facial shingles with failure of outpatient therapy. Recommend to continue with IV therapy and will discuss further with infectious disease about discharge planning and length of treatment induration. Patient is a diabetic [id number] although will continue Accu-Cheks and sliding scale hospitalized Recommend showering with no aggressive scrubbing to the scalp as patient does have lesions noted in that area. Patient reports increased itching on the left side of her head due to not showering for a few days while being here. Encouraged showering. Encouraged increased activity as tolerated , patient continues to report weakness and working with physical therapy Recommend using cools solution to assist with oral intake, which is improving and will continue for now lesions in the oral mucosa significantly improving. Dietitian following and will continue with soft foods for improved oral intake We'll continue to monitor closely with possible discharge in the next 24-48 hours. Will discuss further with infectious disease about duration of antivirals on discharge. The impression and plan of care has been dictated by Ilana Yin, nurse practitioner as directed. Dr. Blanca MD I have performed a history and examination and MDM of this patient, discussed the same with the dictator, and agree with the dictator's assessment and plan as written ,documented as a scribe. Based on total visit time, I have performed more than 50% of the visit. Any additional findings or plans will be noted. Objective - Vital Signs Vital signs: Vital Signs Temp 98.4 F 06/01/22 11:37 Pulse 77 06/01/22 11:37 Resp 18 06/01/22 11:37 BP 151/82 06/01/22 11:37 Pulse Ox 96 06/01/22 11:37 FiO2 Intake & Output 05/31/22 06/01/22 06/01/22 18:59 06:59 18:59 Intake Total 830 Balance 830 Intake: Oral 830 Other: Voiding Method Toilet Toilet Toilet # Voids 3 2 1 - Labs CBC & Chem 7: 05/29/22 16:19 05/29/22 16:19 Labs: Microbiology - Last 24 Hours (Table) 05/29/22 16:01 Blood Culture - Preliminary Blood No Growth after 48 hours 05/29/22 16:00 Blood Culture - Preliminary Blood No Growth after 48 hours
[2022-06-02 07:43] VITALS: RESP 18; TEMP 98.2
[2022-06-02] MEDS: MAG HYDROX/AL HYDROX/SIMETH 30 ML, diphenhydrAMINE ELIXIR 75 MG, LIDOCAINE VISCOUS 2% 3... PO SCH ×3 (08:12)
[2022-06-02] MEDS: FAMOTIDINE 20 MG TAB PO SCH (08:12)
[2022-06-02] MEDS: PREGABALIN 75 MG CAP PO SCH (08:12)
[2022-06-02] MEDS: ACYCLOVIR SODIUM 800 MG in SODIUM CHLORIDE 0.9% 100 ML IV SCH (08:12)
[2022-06-02] MEDS: ALBUTEROL NEBULIZED 2.5 MG/3 ML INHALATION PRN (09:27)
[2022-06-02 09:47] LABS: African American GFR (CKD) 89.7 (60.0-200.0); Albumin 3.7 g/dL (3.8-4.9); Albumin/Globulin Ratio 1.32 (1.60-3.17); Anion Gap 7.1 mmol/L (10.00-18.00); BUN/Creat Ratio 9.25 Ratio (12.00-20.00); Blood Urea Nitrogen 7.4 mg/dL (9.0-27.0); Calcium 9.2 mg/dL (8.7-10.3); Carbon Dioxide 29.9 mmol/L (20.0-27.5); Globulin 2.8 g/dL (1.6-3.3); Non-African American GFR(CKD) 77.4 (60.0-200.0); Potassium 4.1 mmol/L (3.5-5.5); Total Bilirubin 0.2 mg/dL (0.30-1.20); Total Protein 6.5 g/dL (6.2-8.2)
[2022-06-02 09:58] LABS: Basophils # (A) 0.01 X 10*3/uL (0.00-0.10); Basophils % (A) 0.2 %; Eosinophils # (A) 0.16 X 10*3/uL (0.04-0.35); Eosinophils % (A) 3.2 %; HCT 33.8 % (37.2-46.3); Immature Grans, Automated 0.2 %; Lymphocytes # (A) 1.25 X 10*3/uL (0.90-5.00); Lymphocytes % (A) 25.2 %; MCH 26.8 pg (27.0-32.0); MCHC 32.5 g/dL (32.0-37.0); MCV 82.4 fL (80.0-97.0); Mean Platelet Volume 9.7 fL (9.5-12.2); Monocytes # (A) 0.34 X 10*3/uL (0.20-1.00); Monocytes % (A) 6.8 %; NRBC Per 100 WBC 0 /100 WBCS (0.0-0.0); Neutrophils % (A) 64.4 %; Platelet Count 192 X 10*3/uL (140-440); RDW 14.5 % (11.5-14.5); WBC 4.97 X 10*3/uL (4.50-10.00)
[2022-06-02 10:10] LABS: C Reactive Protein 3.9 mg/dL (0.00-0.80)
[2022-06-02 13:06] VITALS: BP 163/75; PULSE 73
[2022-06-02] MEDS ORDERED: hydroCHLOROthiazide 12.5 MG CAP PO SCH (13:30)
--- NOTE | 2022-06-02 13:57 | P.PN ---
Subjective Progress Note Date: 06/02/22 This is a 66-year-old female who presented to the emergency department after being sent by primary care provider Dr. Fritz for a rash that has been worsening on the face. Patient was initially started on oral Augmentin in the outpatient setting although the rash became significantly worse and also having decreased oral intake due to the mouth sores causing immense pain and weakness. Patient has past medical history of COPD, diabetes mellitus, fibromyalgia, hyperlipidemia, hypertension, neuropathy, IBS, colitis, arthritis with chronic back pain and degenerative disc disease with bilateral glaucoma and cataract in the left eye. Patient denies any further smoking as she used to smoke occasionally drinks alcohol and denies any other illicit drug use. Labs reviewed reveal WBC of 5.0, hemoglobin is 14.8, platelets 122, sodium 139, potassium 4.4, BUN 15, creatinine 0.62, magnesium 2.2. Patient was admitted for right sided facial rashdue to herpes zoster with infectious disease placed on consult. 05/31/2022 Patient is seen and evaluated in follow-up this morning reports some improvement although continues to report pain is only being managed briefly and the pain medications are wearing off. Patient was given IV Dilaudid and ineffective would recommend limiting IV narcotic use and will adjust oral pain medications. Patient was started on gabapentin without much relief and will resume Lyrica twice daily. Patient showing improvement and there is crusting and sloughing of the skin noted and continued discomfort. Oral mucosa significantly improved. Patient reports slightly improved oral intake and taking it slowly. Encouraged showering and avoiding scrubbing scalp aggressively as patient does have lesions noted on the right side of the hairline. Encouraged increased activity as tolerated. 06/01/2022 Patient is seen in follow-up today reporting she is continuing to have some pain right side of her face although somewhat improved with the Percocet and Lyrica. Patient has not required IV pain medications. Patient is continued on acyclovir 3 times daily with infectious disease following. No evidence of surrounding cellulitis patient is significantly improving and having some improvement in her swelling. Patient continues to report difficulty with eating and tolerating recommending softer foods. Dietitian is following. Patient also with some weakness and working with physical therapy. Encouraged increase activity as tolerated. Patient is afebrile with no reports of shortness of breath or chest pain. 06/02/2022 Patient is evaluated in follow-up today continued on acyclovir IV and showing improvement. Patient continues to have some pain and discomfort of the right side of the face as well as her mouth and has been tolerating soft foods better. Patient is having continued weakness and encouraged increase activity as tolerated recommend getting up into the chair more often. Patient is afebrile with no reports of chest pain or palpitations noted. Review of systems: Constitutional: No reports of fatigue, fever, or chills Cardiovascular: No reports of chest pain or palpitations Respiratory: No reports of shortness of breath or cough GI: No reports of nausea, vomiting, or diarrhea : No reports of dysuria or retention Neurovascular: reports of weakness All medications have been reviewed PHYSICAL EXAMINATION: GENERAL: The patient is alert and oriented x4, Well developed, well nourished. Obese HEENT: Pupils are round and equally reacting to light. EOMI. no scleral icterus. No conjunctival pallor. Normocephalic, atraumatic. No pharyngeal erythema. No thyromegaly. CARDIOVASCULAR: S1 and S2 muffled PULMONARY: diminished breath sounds bilaterally with no wheezing or rhonchi noted. ABDOMEN: soft. Nontender on exam. obese. non-distended, normoactive bowel sounds. No palpable organomegaly. MUSCULOSKELETAL: No joint swelling or deformity. EXTREMITIES: No cyanosis, clubbing, or pedal edema. NEUROLOGICAL: Gross neurological examination did not reveal any focal deficits. Diffuse weakness SKIN Multiple herpetic lesions noted on the right side of the face as well as on the tongue and upper palate as well as some improvement in redness and irritation noted in the hairline as well, oral mucosa significantly improved. Lesions improving and fading with some crusting and sloughing noted Assessment: Herpes zoster with right facial and trigeminal nerve involvement Multiple herpetic lesions noted on the tongue as well as upper palate secondary to above COPD history, not in exacerbation Diabetes mellitus, type II, [id number] History of fibromyalgia Hyperlipidemia hypertension History of chronic back pain with degenerative disc disease Obesity with a body mass index of 36.8 GI prophylaxis DVT prophylaxis Full code Plan: Recommend to continue with current medications and management with infectious disease following. Patient continued on acyclovir for facial shingles with failure of outpatient therapy. Recommend to continue with IV therapy and will follow-up with infectious disease about discharge planning and length of treatment Patient is a diabetic [id number] although will continue Accu-Cheks and sliding scale while hospitalized Recommend showering with no aggressive scrubbing to the scalp as patient does have lesions noted in that area. Patient reports increased itching on the left side of her head due to not showering for a few days while being here. Encouraged showering. Encouraged increased activity as tolerated , patient continues to report weakness and working with physical therapy Recommend using cools solution to assist with oral intake, which is improving and will continue for now lesions in the oral mucosa significantly improving. Dietitian following and will continue with soft foods for improved oral intake We'll continue to monitor closely with possible discharge in the next 24-48 hours. Will discuss further with infectious disease about duration of antivirals on discharge. The impression and plan of care has been dictated as a scribe by Ilana Yin, Nurse Practitioner as directed. Dr. Marci MD I have performed a history and examination and MDM of this patient, discussed the same with the dictator, and will be documented as a scribe. Based on total visit time, I have performed more than 50% of the visit. Objective - Vital Signs Vital signs: Vital Signs Temp 98.2 F 06/02/22 12:43 Pulse 73 06/02/22 12:43 Resp 18 06/02/22 12:43 BP 163/75 06/02/22 12:43 Pulse Ox 99 06/02/22 12:43 FiO2 Intake & Output 06/01/22 06/02/22 06/02/22 18:59 06:59 18:59 Intake Total 100 520 Balance 100 520 Weight 91.371 kg Intake: Intake, IV Titration 100 Amount Acyclovir Sodium 800 mg 100 In Sodium Chloride 0.9% 100 ml @ 100 mls/hr IV Q8HR [facility] Rx#:[id number] Oral 520 Other: Voiding Method Toilet Toilet Toilet # Voids 1 3 - Labs CBC & Chem 7: 06/02/22 05:27 06/02/22 05:27 Labs: Abnormal Lab Results - Last 24 Hours (Table) 06/02/22 06/02/22 Range/Units 05:27 05:27 Hgb 11.0 L (12.0-15.0) g/dL Hct 33.8 L (37.2-46.3) % MCH 26.8 L (27.0-32.0) pg Carbon Dioxide 29.9 H (20.0-27.5) mmol/L Anion Gap 7.10 L (10.00-18.00) mmol/L BUN 7.4 L (9.0-27.0) mg/dL BUN/Creatinine Ratio 9.25 L (12.00-20.00) Ratio Total Bilirubin 0.20 L (0.30-1.20) mg/dL C-Reactive Protein 3.90 H (0.00-0.80) mg/dL Albumin 3.7 L (3.8-4.9) g/dL Albumin/Globulin Ratio 1.32 L (1.60-3.17) g/dL Microbiology - Last 24 Hours (Table) 05/29/22 16:01 Blood Culture - Preliminary Blood No Growth after 72 hours 05/29/22 16:00 Blood Culture - Preliminary Blood No Growth after 72 hours
--- NOTE | 2022-06-02 14:09 | P.DS ---
Providers Date of admission: 05/29/22 16:08 Expected date of discharge: 06/02/22 Attending physician: James Covarrubias Consults: 05/29/22 16:07 Consult Physician Routine Consulting Provider: Chivo Sellers Consult Reason/Comments: Right-sided herpes zoster, ophthalmology evaluation Do you want consulting provider notified?: Yes Consult Physician Routine Consulting Provider: Steven Evangelista Consult Reason/Comments: Herpes zoster Do you want consulting provider notified?: Yes Primary care physician: Kwame Fritz Hospital Course: Final diagnosis Herpes zoster with right facial and trigeminal nerve involvement Multiple herpetic lesions noted on the tongue as well as upper palate secondary to above COPD history, not in exacerbation Diabetes mellitus, type II, [id number] History of fibromyalgia Hyperlipidemia hypertension History of chronic back pain with degenerative disc disease Obesity with a body mass index of 36.8 GI prophylaxis DVT prophylaxis Full code Discharge disposition Patient is being discharged in a stable condition with guarded prognosis to home . Patient will follow-up with Dr. Fritz in the outpatient setting upon discharge. Patient is to continue with valtrex as prescribed. Patient to follow-up with infectious disease outpatient in one week. Total time taken is greater than 35 minutes. Hospital course This is a 66-year-old female who was recently admitted with facial rash and found to have shingles with trigeminal nerve involvement. Patient was started on IV Valtrex and showed improvement with infectious disease following and patient to continue with local wound care and Lyrica along with her Valtrex for the next 1 week and close outpatient follow-up with infectious disease. Patient has been cleared by consultation for discharge. Would recommend continuing with soft foods and meticulous handwashing. Currently no reports of chest pain, shortness of breath, or palpitations. Patient is afebrile. No reports of nausea or vomiting and patient is tolerating diet. Patient will be discharged home today. Physical exam: Gen: This is a 66-year-old female who was awake, alert and oriented 3, well-developed, well-nourished, obese HEENT: Head is atraumatic, normocephalic. Pupils equal, round. Sclerae is anicteric. NECK: Supple. No JVD. No lymphadenopathy. No thyromegaly. LUNGS: Clear to auscultation. No wheezes or rhonchi. No intercostal retractions. HEART: Regular rate and rhythm. No murmur. ABDOMEN: Soft. Bowel sounds are present. No masses. No tenderness. EXTREMITIES: No pedal edema. No calf tenderness. NEUROLOGICAL: Patient is awake, alert and oriented x3. Cranial nerves 2 through 12 are grossly intact. skin: Herpetic lesions in the healing stages with crusting noted and improved r edness and sensitivity Please refer to medication reconciliation sheet for a list of medications. The impression and plan of care has been dictated as a scribe by Ilana Yin, Nurse Practitioner as directed. MD Bethanie I have performed a history and examination and MDM of this patient, discussed the same with the dictator, and will be documented as a scribe. Based on total visit time, I have performed more than 50% of the visit. Patient Condition at Discharge: Stable Plan - Discharge Summary Discharge Rx Participant: Yes New Discharge Prescriptions: New valACYclovir HCL [Valtrex] 1,000 mg PO Q8HR #21 tablet oxyCODONE-APAP 7.5-325MG [Percocet 7.5-325 mg] 1 each PO Q6HR PRN 3 Days #12 tab PRN Reason: Pain Continue Albuterol Sulfate [Proair Hfa] 1 - 2 puff INHALATION RT-Q4H PRN PRN Reason: Shortness Of Breath Loratadine [Claritin] 10 mg PO DAILY Montelukast [Singulair] 10 mg PO HS Atorvastatin [Lipitor] 10 mg PO DAILY Ketorolac [Toradol] 10 mg PO Q6HR PRN PRN Reason: Moderate Pain (Scale 4 To 6) Meloxicam [Mobic] 7.5 mg PO DAILY Nystatin 100,000 Unit/ml Susp [Mycostatin Oral Susp] 5 ml PO QID Pregabalin [Lyrica] 150 mg PO BID hydroCHLOROthiazide 12.5 mg PO DAILY Discontinued Amoxic-Pot Clav 875-125Mg [Augmentin 875-125] 1 tab PO BID Acyclovir [Zovirax] 800 mg PO 5XD 7 Days #350 ml Discharge Medication List Albuterol Sulfate [Proair Hfa] 1 - 2 puff INHALATION RT-Q4H PRN 11/30/18 [History] Loratadine [Claritin] 10 mg PO DAILY 11/30/18 [History] Montelukast [Singulair] 10 mg PO HS 11/30/18 [History] Atorvastatin [Lipitor] 10 mg PO DAILY 06/26/21 [History] hydroCHLOROthiazide 12.5 mg PO DAILY 06/26/21 [History] Ketorolac [Toradol] 10 mg PO Q6HR PRN 05/28/22 [History] Meloxicam [Mobic] 7.5 mg PO DAILY 05/28/22 [History] Nystatin 100,000 Unit/ml Susp [Mycostatin Oral Susp] 5 ml PO QID 05/28/22 [History] Pregabalin [Lyrica] 150 mg PO BID 05/28/22 [History] oxyCODONE-APAP 7.5-325MG [Percocet 7.5-325 mg] 1 each PO Q6HR PRN 3 Days #12 tab 06/02/22 [Rx] valACYclovir HCL [Valtrex] 1,000 mg PO Q8HR #21 tablet 06/02/22 [Rx] Follow up Appointment(s)/Referral(s): Kwame Fritz MD [Primary Care Provider] - 1-2 days Steven Evangelista MD [STAFF PHYSICIAN] - 1 Week Patient Instructions/Handouts: Shingles (DC) Activity/Diet/Wound Care/Special Instructions: Please call on Saturday to schedule appointments. office is closed on weekends Diet as tolerated Activity Limited until seen by
[2022-06-02] MEDS ORDERED: MONTELUKAST 10 MG TAB PO SCH (21:00)
--- NOTE | 2022-06-02 22:46 | P.PN ---
Subjective Progress Note Date: 06/02/22 Principal diagnosis: Shingles Patient is a 66 -year-old female with a past medical history significant for diabetes mellitus hypertension hyperlipidemia fibromyalgia COPD started developing a rash on the right side of the face initially mostly sores in her right side of her mouth, patient been diagnosed with shingles without cellulitis failing outpatient therapy on today's evaluation that is 06/02/2022, the patient continues to be afebrile, patient pain to the right side the face or inside the mouth has decreased in intensity, no new lesion has been reported, the patient denies any difficulty swallowing no chest pain shortness of breath or cough Objective - Vital Signs Vital signs: Vital Signs Temp 98.2 F 06/02/22 07:31 Pulse 82 06/02/22 09:27 Resp 18 06/02/22 08:30 BP 133/82 06/02/22 07:31 Pulse Ox 97 06/02/22 07:31 FiO2 Intake & Output 06/01/22 06/02/22 06/02/22 18:59 06:59 18:59 Intake Total 100 520 Balance 100 520 Weight 91.371 kg Intake: Intake, IV Titration 100 Amount Acyclovir Sodium 800 mg 100 In Sodium Chloride 0.9% 100 ml @ 100 mls/hr IV Q8HR [facility] Rx#:[id number] Oral 520 Other: Voiding Method Toilet Toilet Toilet # Voids 1 3 - Exam GENERAL DESCRIPTION: An elderly female lying in bed in no distress HEENT; right-sided facial rash in the maxillary distribution with no redness or drainage RESPIRATORY SYSTEM: Unlabored breathing , decreased breath sounds at bases HEART: S1 S2 regular rate and rhythm , ABDOMEN: Soft , no tenderness EXTREMITIES: No edema feet - Labs CBC & Chem 7: 06/02/22 05:27 06/02/22 05:27 Labs: Microbiology - Last 24 Hours (Table) 05/29/22 16:01 Blood Culture - Preliminary Blood No Growth after 72 hours 05/29/22 16:00 Blood Culture - Preliminary Blood No Growth after 72 hours Assessment and Plan (1) Herpes zoster virus infection of face and ear nerves Status: Acute Code(s): B02.29 - OTHER POSTHERPETIC NERVOUS SYSTEM INVOLVEMENT SNOMED Code(s): 6826838 Plan: 1patient presenting to the Hospital with extensive shingles involving the maxillary division of trigeminal nerve , failing outpatient oral acyclovir therapy currently with no evidence of any secondary cellulitis 2-patient seemed to have some subclinical improvement and will finish therapy with oral Valtrex prescription sent to the pharmacy and close outpatient follow- up Time with Patient: Less than 30
== END 2022-06-02 15:15 | disposition home or self-care (01) | DRG 74 ==
LOC: EC 12:33 → 5NMEDONC 16:08
PROVIDERS: ADMIT Internal Medicine; ATTEND Internal Medicine
DX: B02.22 Postherpetic trigeminal neuralgia (principal); B02.30 Zoster ocular disease, unspecified; B02.8 Zoster with other complications; E11.40 Type 2 diabetes mellitus with diabetic neuropathy, unspecified; E78.5 Hyperlipidemia, unspecified; E86.0 Dehydration; H40.9 Unspecified glaucoma; I10 Essential (primary) hypertension; I25.10 Atherosclerotic heart disease of native coronary artery without angina pectoris; J44.9 Chronic obstructive pulmonary disease, unspecified; Z71.3 Dietary counseling and surveillance; M54.9 Dorsalgia, unspecified; G89.29 Other chronic pain; R13.10 Dysphagia, unspecified; K58.9 Irritable bowel syndrome, unspecified; E66.9 Obesity, unspecified; Z68.36 Body mass index [BMI] 36.0-36.9, adult; H26.9 Unspecified cataract; M79.7 Fibromyalgia; Z87.891 Personal history of nicotine dependence; Z87.01 Personal history of pneumonia (recurrent); Z83.3 Family history of diabetes mellitus; Z82.49 Family history of ischemic heart disease and other diseases of the circulatory system; Z79.1 Long term (current) use of non-steroidal anti-inflammatories (NSAID); Z79.899 Other long term (current) drug therapy; Z80.0 Family history of malignant neoplasm of digestive organs
CPT/HCPCS: 36415; 80053; 83735; 85025; 86140; 87040; 94640; 96365; 96375; 99284; 99285